=== PATIENT | female | born 1955 | race Caucasian/White ===

== ENCOUNTER 2019-08-22 10:06 | Outpatient (CLI) | payer BC, SELFPAY ==
[2019-08-22 10:28] LABS: Basophils Absolute Auto 0.1 K/mm3 (0.0-0.1); Basophils Percent Auto 0.6 % (0.2-1.2); Eosinophils Absolute Auto 0.3 K/mm3 (0-0.3); Eosinophils Percent Auto 3.6 % (0-4.4); Hematocrit 40.8 % (37.0-47.0); Hemoglobin 12.9 g/dL (12.0-15.0); Immature Granulocyte Percent A 1.1 % (0-0.5); Lymphocytes Absolute Auto 3.07 K/mm3 (0.9-3.2); Mean Corpuscular HGB Conc 31.6 g/dl (32-36); Mean Corpuscular Hemoglobin 27.9 pg (26-34); Mean Corpuscular Volume 88.3 fl (80-100); Mean Platelet Volume 11.7 fl (7.4-10.4); Monocytes Absolute Auto 0.8 K/mm3 (0.1-0.6); Monocytes Percent Auto 8.5 % (2.6-8.5); Neutrophils Absolute Auto 4.5 K/mm3 (1.3-6.7); Neutrophils Percent Auto 51.2 % (45.5-73.1); Platelet Count Result 246 k/mm3 (150-375); Red Blood Count 4.62 M/mm3 (4.2-5.4); Red Cell Distribution Width 13.5 % (11.5-14.5); White Blood Count 8.8 K/mm3 (4.5-10.0)
[2019-08-22 10:38] LABS: Hemoglobin A1C 8.5 % (<5.7)
[2019-08-22 10:46] LABS: Alanine Aminotransferase 84 U/L (4-35); Albumin Level 4.4 g/dL (3.5-5.1); Alkaline Phosphatase 60 U/L (38-126); Aspartate Amino Transferase 79 U/L (14-36); Bilirubin,Total 0.7 mg/dL (0.2-1.3); Blood Urea Nitrogen 14 mg/dL (7-17); Calcium 9.9 mg/dL (8.4-10.2); Carbon Dioxide 29 mmol/L (22-30); Chloride 96 mmol/L (98-107); Cholesterol 187 mg/dL (0-200); Estimated Glomerular Filt Rate > 60; Glucose 167 mg/dL (65-105); HDL Direct 52 mg/dL; Potassium 4.1 mmol/L (3.4-5.0); Sodium 138 mmol/L (137-145); Triglycerides 108 mg/dL (<150)
[2019-08-22 10:56] LABS: LDL Cholesterol Direct 116 mg/dL
== END 2019-08-22 10:07 | disposition home or self-care (01) ==
LOC: ANHLAB 10:09
PROVIDERS: PCP Family Medicine; Visit Provider Nurse Practitioner Family
DX: E11.65 Type 2 diabetes mellitus with hyperglycemia (principal); E78.2 Mixed hyperlipidemia; F41.9 Anxiety disorder, unspecified
CPT/HCPCS: 36415; 80053; 80061; 83036; 84443; 85025

== ENCOUNTER 2019-10-25 10:41 | Outpatient (CLI) | payer BC, SELFPAY ==
[2019-10-25 11:12] LABS: Basophils Percent Auto 0.4 % (0.2-1.2); Eosinophils Absolute Auto 0.2 K/mm3 (0-0.3); Eosinophils Percent Auto 1.7 % (0-4.4); Hematocrit 41.1 % (37.0-47.0); Hemoglobin 12.9 g/dL (12.0-15.0); Immature Granulocyte Absolute 0.09 K/mm3 (0.00-0.031); Lymphocytes Absolute Auto 2.61 K/mm3 (0.9-3.2); Lymphocytes Percent Auto 28.2 % (18.3-44.2); Mean Corpuscular HGB Conc 31.4 g/dl (32-36); Mean Corpuscular Hemoglobin 27.7 pg (26-34); Mean Corpuscular Volume 88.4 fl (80-100); Mean Platelet Volume 11.8 fl (7.4-10.4); Monocytes Absolute Auto 0.6 K/mm3 (0.1-0.6); Monocytes Percent Auto 6.8 % (2.6-8.5); Neutrophils Absolute Auto 5.7 K/mm3 (1.3-6.7); Neutrophils Percent Auto 61.9 % (45.5-73.1); Platelet Count Result 244 k/mm3 (150-375); Red Blood Count 4.65 M/mm3 (4.2-5.4); Red Cell Distribution Width 13.3 % (11.5-14.5); White Blood Count 9.3 K/mm3 (4.5-10.0)
[2019-10-25 11:22] LABS: Hemoglobin A1C 7.6 % (<5.7)
[2019-10-25 11:24] LABS: Alanine Aminotransferase 69 U/L (4-35); Albumin Level 4.4 g/dL (3.5-5.1); Alkaline Phosphatase 62 U/L (38-126); Aspartate Amino Transferase 56 U/L (14-36); Bilirubin,Total 0.7 mg/dL (0.2-1.3); Blood Urea Nitrogen 11 mg/dL (7-17); Calcium 9.7 mg/dL (8.4-10.2); Carbon Dioxide 28 mmol/L (22-30); Chloride 100 mmol/L (98-107); Cholesterol 174 mg/dL (0-200); Estimated Glomerular Filt Rate > 60; Glucose 169 mg/dL (65-105); HDL Direct 50 mg/dL; Potassium 3.9 mmol/L (3.4-5.0); Sodium 137 mmol/L (137-145); Triglycerides 82 mg/dL (<150)
[2019-10-25 11:35] LABS: LDL Cholesterol Direct 101 mg/dL
[2019-10-26 04:11] LABS: Creatinine Urine 61.2 mg/dL
[2019-10-26 04:23] LABS: MALB Creatinine Ratio < 9.8 mg/g (0-30); Microalbumin Urine Random < 6.0 mg/L (0-16.7)
== END 2019-10-25 10:42 | disposition home or self-care (01) ==
PROVIDERS: PCP Family Medicine; Visit Provider Family Medicine
DX: I10 Essential (primary) hypertension (principal); E11.65 Type 2 diabetes mellitus with hyperglycemia; E78.2 Mixed hyperlipidemia
CPT/HCPCS: 36415; 80053; 80061; 82043; 83036; 85025

== ENCOUNTER 2020-04-28 10:12 | Outpatient (CLI) | payer BC, SELFPAY ==
[2020-04-28 10:54] LABS: Basophils Percent Auto 0.4 % (0.2-1.2); Eosinophils Absolute Auto 0.3 K/mm3 (0-0.3); Eosinophils Percent Auto 2.6 % (0-4.4); Hematocrit 42.9 % (37.0-47.0); Hemoglobin 13.5 g/dL (12.0-15.0); Immature Granulocyte Absolute 0.07 K/mm3 (0.00-0.031); Immature Granulocyte Percent A 0.7 % (0-0.5); Lymphocytes Absolute Auto 2.79 K/mm3 (0.9-3.2); Mean Corpuscular HGB Conc 31.5 g/dl (32-36); Mean Corpuscular Hemoglobin 28.2 pg (26-34); Mean Corpuscular Volume 89.6 fl (80-100); Mean Platelet Volume 12.3 fl (7.4-10.4); Monocytes Absolute Auto 0.7 K/mm3 (0.1-0.6); Monocytes Percent Auto 7.4 % (2.6-8.5); Neutrophils Absolute Auto 5.8 K/mm3 (1.3-6.7); Neutrophils Percent Auto 59.9 % (45.5-73.1); Platelet Count Result 248 k/mm3 (150-375); Red Blood Count 4.79 M/mm3 (4.2-5.4); Red Cell Distribution Width 13.5 % (11.5-14.5); White Blood Count 9.6 K/mm3 (4.5-10.0)
[2020-04-28 11:03] LABS: Hemoglobin A1C 8.4 % (<5.7)
[2020-04-28 11:05] LABS: Alanine Aminotransferase 124 U/L (4-35); Albumin Level 4.4 g/dL (3.5-5.1); Alkaline Phosphatase 68 U/L (38-126); Anion Gap 7 mmol/L (8-16); Aspartate Amino Transferase 120 U/L (14-36); Bilirubin,Total 0.9 mg/dL (0.2-1.3); Blood Urea Nitrogen 13 mg/dL (7-17); Calcium 9.8 mg/dL (8.4-10.2); Carbon Dioxide 31 mmol/L (22-30); Chloride 99 mmol/L (98-107); Estimated Glomerular Filt Rate > 60; Glucose 183 mg/dL (65-105); Potassium 4.1 mmol/L (3.4-5.0); Sodium 137 mmol/L (137-145)
== END 2020-04-28 10:13 | disposition home or self-care (01) ==
LOC: ANHLAB 10:14
PROVIDERS: PCP Family Medicine; Visit Provider Physician Assistant
DX: E11.65 Type 2 diabetes mellitus with hyperglycemia (principal); I10 Essential (primary) hypertension
CPT/HCPCS: 36415; 80053; 83036; 85025

== ENCOUNTER → 2020-09-11 11:20 | Outpatient (CLI) | payer BC, SELFPAY ==
[2020-09-12 08:28] LABS: SARS-CoV-2 RNA PCR Positive
== END ==
PROVIDERS: PCP Family Medicine; Visit Provider Physician Assistant
DX: U07.1 COVID-19 (principal)
CPT/HCPCS: C9803; U0003; U0005

== ENCOUNTER 2021-05-12 15:22 | Outpatient (CLI) | payer BC, SELFPAY | END 2021-05-12 15:23 | disposition home or self-care (01) | LOC: ANHLAB 15:24 | PROVIDERS: PCP Family Medicine; Visit Provider Nurse Practitioner Adult Health | DX: R31.0 Gross hematuria (principal) | CPT/HCPCS: 87086; 87088 ==

== ENCOUNTER 2022-12-29 09:38 | Outpatient (CLI) | payer MEDICARE, SELFPAY ==
[2022-12-29 10:21] LABS: Appearance Urine Clear (Clear); Bacteria Urine None Seen /hpf; Bilirubin Urine Negative (Negative); Blood Urine Negative (Negative); Color Urine Yellow (Yellow); Glucose Urine UA Negative (Negative); Ketones Urine Negative (Negative); Leukocyte Esterase Ur Trace LEU/UL (NEGATIVE); Nitrate Urine Negative (Negative); Non Pathogenic Casts 0-2; Protein Urine Negative (Negative); Specific Grav Ur 1.019 (1.001-1.035); Squamous Epithelial Cell Urine None seen /hpf (Few); WBC Urine 0-5 /hpf (0-3); pH Urine 7.5 (5.0-9.0)
[2022-12-29 10:44] LABS: Add Urine Microscopic? YES
[2022-12-29 12:27] LABS: Microalbumin Urine Random 6.5 mg/L (0-16.7)
[2022-12-29 12:39] LABS: Creatinine Urine 65.7 mg/dL; MALB Creatinine Ratio 9.9 mg/g (0-30)
[2022-12-29 12:43] LABS: Alanine Aminotransferase 37 U/L (6-35); Albumin Level 4.2 g/dL (3.5-5.1); Alkaline Phosphatase 66 U/L (38-126); Anion Gap 6 mmol/L (8-16); Aspartate Amino Transferase 40 U/L (14-36); Blood Urea Nitrogen 16 mg/dL (7-17); Carbon Dioxide 30 mmol/L (22-30); Chloride 101 mmol/L (98-107); Cholesterol 207 mg/dL (0-200); Estimated Glomerular Filt Rate > 60; Glucose 242 mg/dL (65-110); HDL Direct 49 mg/dL; Potassium 3.8 mmol/L (3.4-5.0); Sodium 137 mmol/L (137-145); Triglycerides 155 mg/dL (<150)
[2022-12-29 12:54] LABS: LDL Cholesterol Direct 116 mg/dL
[2023-01-01 16:43] LABS: GGT 33 U/L (3-65)
== END 2022-12-29 09:39 | disposition home or self-care (01) ==
PROVIDERS: PCP Family Medicine; Visit Provider Family Medicine
DX: E78.2 Mixed hyperlipidemia (principal); R74.8 Abnormal levels of other serum enzymes; E11.65 Type 2 diabetes mellitus with hyperglycemia
CPT/HCPCS: 36415; 80053; 80061; 81001; 82043; 82977; 83036; 84443

== ENCOUNTER 2023-03-08 15:18 | Outpatient (CLI) | payer MEDICARE, SELFPAY ==
[2023-03-08 16:53] LABS: Creatinine Urine 73.5 mg/dL
[2023-03-08 16:55] LABS: MALB Creatinine Ratio 10.1 mg/g (0-30); Microalbumin Urine Random 7.4 mg/L (0-16.7)
== END 2023-03-08 15:19 | disposition home or self-care (01) ==
PROVIDERS: PCP Family Medicine
DX: E11.65 Type 2 diabetes mellitus with hyperglycemia (principal)
CPT/HCPCS: 82043

== ENCOUNTER 2023-08-13 22:21 | Observation (INO) | payer MEDICARE, SELFPAY ==
--- NOTE | ~2023-08-13 | CT_ITS ---
EXAMINATION: CTA brain carotid DATE: 08/13/2023 22:50 INDICATION: Right-sided numbness. TECHNIQUE: Computed tomographic angiography (CTA) of the head was performed with 100 mL Omnipaque-350 intravenous contrast. CTA of the neck was performed with intravenous contrast. Automated exposure co ntrol and iterative reconstruction technique were employed. The dose-length product was 1159.50 mGy-c m. Maximum intensity projection and volume rendered 3D-reconstructions were created by the technsofia navarro on a separate workstation. COMPARISON: Head CT 08/13/2023 FINDINGS: HEAD CTA: There are scattered areas of low attenuation in the cerebral white matter, which is within normal limits for the patient's age. There is no intracranial hemorrhage, acute infarction, or abnorm al intracranial mass lesion. The ventricles are normal in size. The orbits are normal. There is mucos al thickening in left maxillary sinus. There is a small left mastoid effusion. The vertebral arteries are codominant. There is no significant stenosis of basilar artery or the posterior cerebral arterie s. Left P1 posterior cerebral artery segment is absent, a normal variant. There is an infundibulum at the origin of right posterior communicating artery. Left posterior communicating artery is normal. T here is no significant stenosis of the intracranial internal carotid arteries or anterior cerebral ar teries. There is no significant stenosis of right middle cerebral artery. Left middle cerebral artery is small. Anterior communicating artery is normal. There is no aneurysm. NECK CTA: There are nodules in the lung apices measuring up to 8 mm on the left. There are no patholo gically enlarged lymph nodes. There is an associated stenosis of the vertebral arteries. There is mingo que in the proximal internal carotid arteries. There is 0% stenosis of the proximal right internal ca rotid artery relative to normal distal artery lumen diameter (NASCET criteria). There is 0% stenosis of the proximal left internal carotid artery relative to normal distal artery lumen diameter. There i s mild cervical spondylosis. IMPRESSION: 1. Normal aging brain. 2. Small left middle cerebral artery. 3. 0% stenosis of the proximal internal carotid arteries relative to normal distal artery lumen diame ters (NASCET criteria). 4. Pulmonary nodules measuring up to 8 mm, which may be granulomatous disease, but malignancy cannot be excluded. Reviewed, dictated and finalized at location E. HEALTH SPEECH THERAPIST IMPRESSION: 1. Normal aging brain. 2. Small left middle cerebral artery. 3. 0% stenosis of the proximal internal carotid arteries relative to normal dis alex artery lumen diameters (NASCET criteria). 4. Pulmonary nodules measuring up to 8 mm, which may be granulomatous disease, but malignancy cannot be excluded.
--- NOTE | ~2023-08-13 | CT_ITS ---
EXAMINATION:CT diagnostic chest wo con DATE: 08/14/2023 06:19 INDICATION: Pulmonary nodules. Abnormal chest radiograph. TECHNIQUE: Computed tomography (CT) of the chest was performed without intravenous contrast. Automate d exposure control and iterative reconstruction technique were employed. The dose-length product (DLP ) was 487.06 mGy-cm. COMPARISON: CT abdomen and pelvis 09/05/2016 FINDINGS: There are greater than 40 nodules in the lungs measuring up to 20 mm in right lower lobe. T he 20 mm nodule in right lower lobe measure 12 mm on 09/05/2016. Many nodules in the inferior lungs ar e stable from 09/05/2016. No pleural effusion. The heart size is normal. There are coronary artery lala cifications. No pericardial effusion. There are gallstones in the gallbladder, which is normal in siz e. There are cysts in left kidney measuring up to 15 mm. There is mild thoracic spondylosis and sever e lumbar spondylosis. IMPRESSION: 1. Pulmonary nodules measuring up to 20 mm, at least the largest of which has increased in size from 09/05/2016. These findings may be granulomatous disease, but malignancy cannot be excluded. Consider C T-guided biopsy of the 20 mm right lower lobe nodule. Reviewed, dictated and finalized at location E. TRAPPER IMPRESSION: 1. Pulmonary nodules measuring up to 20 mm, at least the largest of which has i ncreased in size from 09/05/2016. These findings may be granulomatous disease, b ut malignancy cannot be excluded. Consider CT-guided biopsy of the 20 mm right lower lobe nodule.
--- NOTE | ~2023-08-13 | MR_ITS ---
MRI of the brain Clinical History: TIA Technique: Axial and sagittal T1-weighted images were acquired. These were followed by axial T2-weigh smitha, diffusion weighted, gradient, and FLAIR images. Following intravenous administration of 20 cc Mu ltiHance gadolinium, T1-weighted fat-sat imaging was performed in the axial and coronal and sagittal planes. Findings: There is no acute infarct, intracranial hemorrhage, or mass lesion. There are mild to moder ate chronic white matter changes in the periventricular white matter bilaterally. Ventricles and subarachnoid spaces are mildly dilated. Orbits are unremarkable. There is mild left ma stoid effusion. There is mild left maxillary sinus disease. Remaining paranasal sinuses and right mas toid air cells are clear. Major intracranial flow voids appear intact. Sagittal midline structures are intact. No abnormal postcontrast enhancement identified. IMPRESSION: No acute intracranial hemorrhage, mass lesion, or acute infarct. Mild to moderate chronic microvascular ischemic changes. Mild sinus disease, as above. Reviewed, dictated and finalized at [facility]. STILE ATTENDANT
--- NOTE | ~2023-08-13 | XR_ITS ---
EXAMINATION: XR chest 1V portable DATE: 08/13/2023 22:57 INDICATION: Weakness. TECHNIQUE: A single frontal view of the chest was obtained. COMPARISON: CT abdomen and pelvis 09/05/2016 FINDINGS: There are scattered nodules in the lungs measuring up to 2 cm. No pleural effusion or pneum othorax. The heart size is normal. IMPRESSION: 1. Scattered pulmonary nodules suspicious for metastatic disease. Noncontrast chest CT is recommended . I called this result to Dr. Krause. Reviewed, dictated and finalized at location E. CARGO GROUND OPERATIONS SUPERVISOR IMPRESSION: 1. Scattered pulmonary nodules suspicious for metastatic disease. Noncontrast c hest CT is recommended. I called this result to Dr. Krause.
--- NOTE | ~2023-08-13 | MR_ITS ---
EXAMINATION: MRA brain wo con DATE: 08/17/2023 18:56 INDICATION: Transient ischemic attack. TECHNIQUE: Magnetic resonance angiography (MRA) of the brain was performed without intravenous contra st with T1-weighted SPGR by the 3D [id number] technique. Maximum intensity projection 3D-reconstr uctions were obtained. COMPARISON: Brain MRI 08/16/2023, CTA 08/13/23 FINDINGS: The vertebral arteries are codominant. There is no significant stenosis of basilar artery or the post erior cerebral arteries. Left posterior communicating artery is normal. A right posterior communicati ng artery is not identified. There is no significant stenosis of the intracranial internal carotid ar teries or anterior cerebral arteries. The left middle cerebral artery is small. Anterior communicatin g artery is normal. There is no aneurysm. IMPRESSION: 1. Small left middle cerebral artery. Reviewed, dictated and finalized at location E. ENT ATTENDANT
--- NOTE | ~2023-08-13 | CT_ITS ---
EXAMINATION: CT brain wo con DATE: 08/13/2023 22:50 INDICATION: Right-sided numbness. TECHNIQUE: Computed tomography (CT) of the head was performed without intravenous contrast. The mA wa s adjusted according to patient size. Iterative reconstruction technique was employed. The dose-lengt h product was 681.00 mGy-cm. COMPARISON: None FINDINGS: There are scattered areas of low attenuation in the cerebral white matter, which is within normal limits for the patient's age. There is no intracranial hemorrhage, acute infarction, or abnorm al intracranial mass lesion. The ventricles are normal in size. The orbits are normal. There is mucos al thickening in left maxillary sinus. The mastoid air cells are normal. IMPRESSION: 1. Normal aging brain. Reviewed, dictated and finalized at location E. ENT STEAMER IMPRESSION: 1. Normal aging brain.
--- NOTE | 2023-08-13 22:30 | ECG_ITS ---
Measurements Intervals [place] Rate: 99 P: 61 CO: 208 QRS: -71 QRSD: 74 T: 64 QT: 344 QTc: 442 Interpretive Statements POOR QUALITY ECG BECAUSE OF BASELINE ARTIFACT SINUS RHYTHM POSSIBLE LEFT ATRIAL ENLARGEMENT [-0.1mV P-WAVE IN V1/V2] LOW QRS VOLTAGE IN PRECORDIAL LEADS [QRS DEFLECTION < 1.0 mV IN CHEST LEADS] LEFT ANTERIOR FASCICULAR BLOCK [QRS AXIS <= -45, QR IN I, RS IN II] CONSIDER PREVIOUS ANTERIOR INFARCTION ABNORMAL ECG NO PREVIOUS ECG AVAILABLE FOR COMPARISON Electronically Signed On 08-14-2023 7:43:21 SELF SEALING FUEL TANK REPAIRER by Rob Alba M.D.
[2023-08-13 22:31] LABS: Glucose Point of Care 219 mg/dl (65-105)
[2023-08-13 22:59] VITALS: BP 156/84; PULSE 91; RESP 18; O2SAT 100
[2023-08-13 23:04] VITALS: O2SAT 98
[2023-08-13 23:06] VITALS: PULSE 90
[2023-08-13] MEDS: SODIUM CHLORIDE 0.9% IV 1,000 ML 999 ML IV CONT (23:06)
--- NOTE | 2023-08-13 23:30 | PC.NURSE ---
Report to KELI Díaz
[2023-08-13 23:31] LABS: Basophils Percent Auto 0.4 % (0.2-1.2); Eosinophils Absolute Auto 0.3 K/mm3 (0-0.3); Eosinophils Percent Auto 3.3 % (0-4.4); Hematocrit 38.4 % (37.0-47.0); Immature Granulocyte Absolute 0.07 K/mm3 (0.00-0.031); Immature Granulocyte Percent A 0.8 % (0-0.5); Lymphocytes Absolute Auto 2.35 K/mm3 (0.9-3.2); Lymphocytes Percent Auto 26.3 % (18.3-44.2); Mean Corpuscular HGB Conc 31.3 g/dl (32-36); Mean Corpuscular Hemoglobin 27.8 pg (26-34); Mean Corpuscular Volume 89.1 fl (80-100); Mean Platelet Volume 12.2 fl (7.4-10.4); Monocytes Absolute Auto 0.8 K/mm3 (0.1-0.6); Monocytes Percent Auto 8.6 % (2.6-8.5); Neutrophils Absolute Auto 5.4 K/mm3 (1.3-6.7); Neutrophils Percent Auto 60.6 % (45.5-73.1); Platelet Count Result 200 k/mm3 (150-375); Red Blood Count 4.31 M/mm3 (4.2-5.4); Red Cell Distribution Width 13.7 % (11.5-14.5); White Blood Count 8.9 K/mm3 (4.5-10.0)
[2023-08-13 23:34] VITALS: BP 151/81; PULSE 99; RESP 20; O2SAT 96
[2023-08-13 23:45] LABS: Prothrombin Time 13.1 Seconds (11.1-14.7)
[2023-08-13 23:46] LABS: Alanine Aminotransferase 27 U/L (6-35); Alkaline Phosphatase 59 U/L (38-126); Anion Gap 7 mmol/L (8-16); Aspartate Amino Transferase 27 U/L (14-36); Bilirubin,Total 0.5 mg/dL (0.2-1.3); Blood Urea Nitrogen 15 mg/dL (7-17); Calcium 9.4 mg/dL (8.4-10.2); Carbon Dioxide 26 mmol/L (22-30); Chloride 103 mmol/L (98-107); Estimated CRCL calculation 95 ml/min; Estimated Glomerular Filt Rate > 60; Glucose 234 mg/dL (65-110); Magnesium 1.7 mg/dL (1.6-2.3); Partial Thromboplastin Time 33.2 SECONDS (22.3-36.8); Potassium 3.5 mmol/L (3.4-5.0); Sodium 136 mmol/L (137-145)
[2023-08-13 23:57] LABS: Troponin I 0.012 ng/mL (0.000-0.034)
[2023-08-14] VITALS (11 sets, daily range): BP systolic 136–162; BP diastolic 69–96; PULSE 70–96; RESP 15–20; TEMP 36.7; O2SAT 95–99
[2023-08-14] MEDS: ASPIRIN 81 MG CHEWABLE TABLET 324 MG PO (00:53)
[2023-08-14] MEDS: CLOPIDOGREL BISULFATE 300 MG TABLET PO (01:04)
--- NOTE | 2023-08-14 02:29 | ED.GENADULT ---
HPI - General Adult General Chief complaint: Neuro Symptoms/Deficit Stated complaint: right hand numbness at 2030-symptoms resolved Time Seen by Provider: 08/13/23 22:32 History of Present Illness HPI narrative: Patient 67-year-old female who presents emergency department with chief complaint of stroke-like symptoms. Patient reports that at approximately 8:30 p.m. she noticed that her right hand started going numb and her arm started tingling at the same time she noticed that she had difficulty writing with a pen and lost control of a pin in her right hand the patient also noticed that she felt as though she had a little bit of droopiness of the right side of her face when this event occurred. The patient states the symptoms lasted for several minutes and completely resolved by the time she arrived to the emergency department patient reports no prior history of CVA Related Data Home Medications Medication Instructions Recorded Confirmed insulin aspart 8 unit subcut TID 02/21/23 02/21/23 (niacinamide)(U-100) 100 unit/mL(3 mL) subcutaneous pen (Fiasp FlexTouch U-100 Insulin) insulin degludec 100 unit/mL 20 unit subcut DAILY 02/21/23 02/21/23 subcutaneous solution (Tresiba U-100 Insulin) pravastatin 20 mg tablet 20 mg PO QHS 02/21/23 02/21/23 sitagliptin phos 50 mg-metformin 1 tablet PO DAILY 02/21/23 02/21/23 ER 1,000 mg tablet,extend rel 24h mp (Janumet XR) Allergies Allergy/AdvReac Type Severity Reaction Status Date / Time ciprofloxacin Allergy Intermediate Hives / Verified 08/13/23 22:23 Red Face codeine Allergy Unknown Hives Verified 08/13/23 22:23 Review of Systems Review of Systems: A 10 system review of systems was completed on the patient and is negative except for what is stated in the HPI. Nursing and ancillary documentation was reviewed. [facility] Past Medical History Medical History Acute non-recurrent maxillary sinusitis Acute otitis media, right Anxiety BMI 39.0-39.9,adult BMI 40.0-44.9, adult BMI 40.0-44.9, adult Bronchitis Colon cancer screening Cough due to EDDIE inhibitor COVID-19 (09/09/20) Diabetes Elevated liver enzymes AST 120 and ALT 124 on 04/28/2020. AST 40, ALT 37, GGT 33 on 12/29/2022. Gastro-esophageal reflux disease without esophagitis GERD (gastroesophageal reflux disease) Hypersomnia Influenza-like illness (06/25/22) Morbid obesity with BMI of 40.0-44.9, adult Nephrolithiasis Obesity due to excess calories Other specified phobia Screening for diabetic retinopathy no diabetic retinopathy on 03/16/2023. Thrombophlebitis leg Transaminitis Venous insufficiency Family History Family History Father Cancer Mother Hypertension Social History Social History Social History: Smoking status: Former smoker Tobacco type: cigarettes Second hand tobacco smoke exposure: No Smoking end date: 07/10/92 Alcohol intake: never Substance use: never Substance use type: does not use Current Housing: Decline to Answer Concerned About Future Housing: Decline to Answer Difficulty Paying Gas/Electric Bills: Decline to Answer Difficulty Paying for Meds: Decline to Answer Currently Unemployed: Decline to Answer Education: Decline to Answer Difficulty w/ Childcare or Family Care: Decline to Answer Living arrangements: with family Occupation/Education: occupation Gender identity (if verbalized by the patient): Female Sexual Orientation (if Verbalized by the Patient): Straight or Heterosexual Exam Narrative: GENERAL: Well-appearing, well-nourished, and in no acute distress. HEAD: Normocephalic, atraumatic. EYES: PERRLA and EOMI. ENT: Nares clear, no rhinorrhea or epistaxis. Mucous membranes moist. NECK: Supple. CHEST: Clear to auscultati
--- NOTE | 2023-08-14 08:58 | PC.NURSE ---
Pt requested to take morning home medications. MD made aware and gave verbal order of approval.
[2023-08-14] MEDS: CLOPIDOGREL BISULFATE 75 MG TABLET PO (09:22)
[2023-08-14] MEDS: ASPIRIN 325 MG TABLET PO (09:22)
[2023-08-14] MEDS: PRAVASTATIN SODIUM 20 MG TABLET PO (09:22)
--- NOTE | 2023-08-14 12:24 | PC.NURSE ---
Meal tray ordered.
--- NOTE | 2023-08-14 15:49 | PC.NURSE ---
This RN spoke w/ [facility], no update on bed placement for pt.
--- NOTE | 2023-08-14 19:15 | PC.NURSE ---
Nurse report given to Aliya DICKEY.
[2023-08-15] VITALS (16 sets, daily range): BP systolic 113–181; BP diastolic 64–92; PULSE 67–82; RESP 14–26; TEMP 36.1–36.4; O2SAT 96–100; BMI 42.3
[2023-08-15] MEDS: ASPIRIN 325 MG TABLET PO (08:21)
--- NOTE | 2023-08-15 08:21 | PC.NURSE ---
BS 227
[2023-08-15 08:23] LABS: Glucose Point of Care 227 mg/dl (65-105)
--- NOTE | 2023-08-15 08:57 | PC.NURSE ---
Pt to [facility] via w/c w/ [employer] and spouse for a shower.
[2023-08-15] MEDS: CLOPIDOGREL BISULFATE 75 MG TABLET PO (09:47)
[2023-08-15] MEDS: PRAVASTATIN SODIUM 20 MG TABLET PO (10:21)
--- NOTE | 2023-08-15 12:54 | PC.NURSE ---
Called [facility] transfer center at [phone] for a status update. Was told that there is still no bed for patient at [facility]
--- NOTE | 2023-08-15 20:10 | ADMGEN ---
This patient, Kassie Dotson, was admitted to Medical Room 349-01. Patient/family oriented to hospital policies and general routines including ID bracelet, bed and alarms, visiting hours, pain management, procedures, bathroom and other care routines, personal items, smoking policy, room service/diet, and visiting hours. Information on how to activate the Rapid Response Team has been discussed. Patient/Family are encouraged to report perceived risks to care and to ask questions if they do not understand what they are told or what they should do.
--- NOTE | 2023-08-15 20:40 | PM.IMHP ---
H&P: HPI History of Present Illness Date/Time: 08/15/23 20:40 Chief Complaint: UPPER EXTREMITY WEAKNESS Narrative: THIS IS A 67-YEAR-OLD FEMALE WITH PAST MEDICAL HISTORY SIGNIFICANT FOR INSULIN-DEPENDENT DIABETES MELLITUS, HYPERTENSION, GERD, DYSLIPIDEMIA. PATIENT PRESENTED TO THE EMERGENCY ROOM AFTER HAVING EPISODE OF BILATERAL LOWER EXTREMITY HAND WEAKNESS WITH KNOWN IN AND TINGLING THAT LASTED ON AND OFF DURING THE DAY IN EMERGENCY ROOM PATIENT PRELIMINARY WORKUP WAS UNREVEALING SHE WAS PLACED ON OBSERVATION AWAITING BED AT OUTSIDE FACILITY HOWEVER NOW ADMITTED TO OUR SERVICE AFTER THE AVAILABILITY OF NEUROLOGY. AT THE TIME OF MY VISIT PATIENT DENIED ANY VISION CHANGES, HAS A FRONTAL HEADACHE, NO NAUSEA NO VOMITING NO FOCAL SENSORIMOTOR DEFICIT NO SPEECH DISTURBANCE, NO GAIT INSTABILITY. EXAMINATION: CT brain wo con DATE: 08/13/2023 22:50 INDICATION: Right-sided numbness. TECHNIQUE: Computed tomography (CT) of the head was performed without intravenous contrast. The mA was adjusted according to patient size. Iterative reconstruction technique was employed. The dose-length product was 681.00 mGy-cm. COMPARISON: None FINDINGS: There are scattered areas of low attenuation in the cerebral white matter, which is within normal limits for the patient's age. There is no intracranial hemorrhage, acute infarction, or abnormal intracranial mass lesion. The ventricles are normal in size. The orbits are normal. There is mucosal thickening in left maxillary sinus. The mastoid air cells are normal. IMPRESSION: 1. Normal aging brain. EXAMINATION:CT diagnostic chest wo con DATE: 08/14/2023 06:19 INDICATION: Pulmonary nodules. Abnormal chest radiograph. TECHNIQUE: Computed tomography (CT) of the chest was performed without intravenous contrast. Automated exposure control and iterative reconstruction technique were employed. The dose-length product (DLP) was 487.06 mGy-cm. COMPARISON: CT abdomen and pelvis 09/05/2016 FINDINGS: There are greater than 40 nodules in the lungs measuring up to 20 mm in right lower lobe. The 20 mm nodule in right lower lobe measure 12 mm on 09/05/2016. Many nodules in the inferior lungs are stable from 09/05/2016. No pleural effusion. The heart size is normal. There are coronary artery calcifications. No pericardial effusion. There are gallstones in the gallbladder, which is normal in size. There are cysts in left kidney measuring up to 15 mm. There is mild thoracic spondylosis and severe lumbar spondylosis. IMPRESSION: 1. Pulmonary nodules measuring up to 20 mm, at least the largest of which has increased in size from 09/05/2016. These findings may be granulomatous disease, but malignancy cannot be excluded. Consider CT-guided biopsy of the 20 mm right lower lobe nodule. EXAMINATION: CTA brain carotid DATE: 08/13/2023 22:50 INDICATION: Right-sided numbness. TECHNIQUE: Computed tomographic angiography (CTA) of the head was performed with 100 mL Omnipaque-350 intravenous contrast. CTA of the neck was performed with intravenous contrast. Automated exposure control and iterative reconstruction technique were employed. The dose-length product was 1159.50 mGy-cm. Maximum intensity projection and volume rendered 3D-reconstructions were created by the technologist on a separate workstation. COMPARISON: Head CT 08/13/2023 FINDINGS: HEAD CTA: There are scattered areas of low attenuation in the cerebral white matter, which is within normal limits for the patient's age. There is no intracranial hemorrhage, acute infarction, or abnormal intracranial mass lesion. The ventricles are normal in size. The orbits are normal. There is mucosal thickening in left maxillary sinus. There is a small left mastoid effusion. The vertebral arteries are codominant. There is no significant stenosis of basilar artery or the posterior cerebral arteries. Left P1 posterior cerebral artery segment is absent, a normal variant. There is an infundibulum at the
[2023-08-15] MEDS: ALPRAZolam (*CRX) 0.5 MG TABLET PO (22:49)
[2023-08-16] VITALS: PULSE 66
[2023-08-16 04:00] VITALS: PULSE 50
[2023-08-16 06:00] VITALS: BP 145/70; PULSE 64; RESP 20; TEMP 36.6; O2SAT 99
[2023-08-16] MEDS: LORazepam INJ (*CRX) 2 MG/ML VIAL 1 MG IV PUSH (07:04)
[2023-08-16 08:40] LABS: Glucose Point of Care 172 mg/dl (65-105)
[2023-08-16] MEDS: CLOPIDOGREL BISULFATE 75 MG TABLET PO (09:51)
[2023-08-16] MEDS: PANTOPRAZOLE 40 MG TABLET PO (09:51)
[2023-08-16] MEDS: hydroCHLOROthiazide 25 MG TABLET PO (09:51)
[2023-08-16] MEDS: PRAVASTATIN SODIUM 20 MG TABLET PO (09:51)
[2023-08-16] MEDS: LOSARTAN POTASSIUM 50 MG TABLET PO (09:51)
[2023-08-16] MEDS: ASPIRIN 325 MG TABLET PO (09:51)
[2023-08-16] MEDS: INSULIN GLARGINE (*BKC) 100 UNITS/ML 18 UNITS SUB-Q (09:53)
[2023-08-16 11:37] LABS: Glucose Point of Care 305 mg/dl (65-105)
[2023-08-16] MEDS: INSULIN ASPART (*BKC) 100 UNITS/ML 8 UNITS SUB-Q ×2 (12:06→17:31)
[2023-08-16 13:15] LABS: Cholesterol 190 mg/dL (0-200); HDL Direct 52 mg/dL; Triglycerides 150 mg/dL (<150)
[2023-08-16 13:27] LABS: LDL Cholesterol Direct 103 mg/dL
[2023-08-16 14:45] LABS: Hemoglobin A1C 8.9 % (<5.7)
[2023-08-16 15:47] VITALS: BP 139/79; PULSE 72; RESP 16; TEMP 36.4; O2SAT 99
--- NOTE | 2023-08-16 16:00 | WPDNEURCNPN ---
Assessment and Plan Assessment and plan (1) Brain TIA: Code(s): G45.9 - Transient cerebral ischemic attack, unspecified Status: Acute Plan 1. TIA 2. Early diabetic neuropathy will benefit from the EMG nerve conduction study as an outpatient at a later date 3. CTA is normal surface echocardiogram would be necessary to rule out the possibly of any cardiac involvement 4. Continue aspirin 81mg daily and Plavix 75mg daily for the next 3 weeks only and follow-up with Dr. Leblanc Consult date: 08/16/23 HPI: Kassie Dotson is a 67 year old femaleAdmitted to the hospital through the emergency room where she presented with chief complaint of stroke-like symptoms around 8:30 p.m. she noted her right hand becoming numb at the same time her right upper extremity was tingling as well she had difficulties in writing and lost control of the pen in her right hand he also noted droopiness of the right side of the face the whole symptomatology lasted for several minutes and completely resolved. Patient is a known diabetic has been taking insulin 8units 3 times a day and 20units subQ daily in addition to pravastatin 20mg at night and sitagliptin 50mg tablet daily she is allergic to Cipro and codeine she is a former smoker by history and has not smoked since July 10, 1992 she is not alcohol intake initial exam in the emergency room was nonfocal including vital signs which were normal head and neck CTA documented small left middle cerebral artery but clear stenosis of the proximal internal carotid arteries incidental finding of pulmonary nodule measuring up to 8mm was documented , brain MRI has been done today which is negative for any territorial stroke but there is micro vascular changes as described. 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 AST 40, ALT 37, GGT 33 on 12/29/2022. Gastro-esophageal reflux disease without esophagitis GERD (gastroesophageal reflux disease) Hypersomnia Influenza-like illness (06/25/22) Morbid obesity with BMI of 40.0-44.9, adult Nephrolithiasis Obesity due to excess calories Other specified phobia Screening for diabetic retinopathy no diabetic retinopathy on 03/16/2023. Thrombophlebitis leg Transaminitis Venous insufficiency Family History Family History Father Cancer Mother Hypertension Social History Social History Social History: Smoking status: Former smoker Tobacco type: cigarettes Second hand tobacco smoke exposure: No Smoking end date: 07/10/92 Alcohol intake: never Substance use: never Substance use type: does not use Do You Feel Safe in your Home?: Yes Lack of Transportation: No Lack of Food: Never True Current Housing: I Have Housing Concerned About Future Housing: No Difficulty Paying Gas/Electric Bills: No Difficulty Paying for Meds: No Currently Unemployed: No Education: High School Diploma/GED Difficulty w/ Childcare or Family Care: No Living arrangements: with family Occupation/Education: occupation Gender identity (if verbalized by the patient): Female Sexual Orientation (if Verbalized by the Patient): Straight or Heterosexual Spiritual care concerns: No Meds Home Medications and Allergies Home Medications Medication Instructions Recorded Confirmed Type alprazolam 0.5 mg tablet 0.5 mg PO TID PRN Anxiety 08/14/23 08/15/23 History hydrochlorothiazide 25 mg tablet 25 mg PO D
--- NOTE | 2023-08-16 16:49 | PM.IMPN ---
Progress Note: A&P Assessment and Plan (1) Brain TIA: Code(s): G45.9 - Transient cerebral ischemic attack, unspecified Status: Acute Assessment and Plan: Place in observation MRI of the brain in the morning Neurology consulted: ? 1.? TIA 2.? Early diabetic neuropathy will benefit from the EMG nerve conduction study as an outpatient at a later date 3.? CTA is normal surface echocardiogram would be necessary to rule out the possibly of any cardiac involvement 4.? Continue aspirin 81mg daily and Plavix 75mg daily for the next 3 weeks only and follow-up with Dr. Leblanc HbA1c: 8.9%; Lipid panel: Unremarkable (2) Morbid obesity with BMI of 40.0-44.9, adult: Code(s): E66.01 - Morbid (severe) obesity due to excess calories; Z68.41 - Body mass index [BMI] 40.0-44.9, adult Status: Acute Assessment and Plan: Lifestyle and diet modifications (3) Gastro-esophageal reflux disease without esophagitis: Code(s): K21.9 - Gastro-esophageal reflux disease without esophagitis Status: Acute Assessment and Plan: PPI (4) MOLLY (generalized anxiety disorder): Code(s): F41.1 - Generalized anxiety disorder Status: Acute Assessment and Plan: On Xanax (5) Diabetic polyneuropathy: Qualifiers: Diabetes mellitus type: type 2 Qualified Code(s): E11.42 - Type 2 diabetes mellitus with diabetic polyneuropathy Code(s): E11.42 - Type 2 diabetes mellitus with diabetic polyneuropathy Status: Acute Assessment and Plan: Unchanged (6) Type 2 diabetes mellitus with hyperglycemia, without long-term current use of insulin: Code(s): E11.65 - Type 2 diabetes mellitus with hyperglycemia Status: Acute Assessment and Plan: Continue insulin Holding Janumet HbA1c 8.9% Lipid panel: Unremarkable (7) Essential (primary) hypertension: Code(s): I10 - Essential (primary) hypertension Status: Acute Assessment and Plan: Continue hydrochlorothiazide Time Spent With Patient Time with patient: 25 - 35 minutes Subjective Date/time seen: 08/16/23 16:49 Interval history: Seen and examined; no fresh concerns Feels better. not in painful/respiratory distress Review of Systems Review of Systems: BILATERAL UPPER EXTREMITY HAND NUMBNESS TINGLING Constitutional: Constitutional: Denies chills, Denies fatigue, Denies fever(s) and Denies malaise Eyes: Eyes: Denies change in vision ENT: Denies dysphagia, Denies vertigo, Denies dizziness and Denies odynophagia Cardiovascular: Cardiovascular: Denies chest pain, Denies radiating jaw, neck or arm pain, Denies palpitations and Denies dyspnea Respiratory: Respiratory: Denies cough and Denies dyspnea Gastrointestinal: Gastrointestinal: Denies abdominal pain, Denies dysphagia, Denies dyspepsia, Denies heartburn, Denies diarrhea, Denies nausea, Denies odynophagia and Denies vomiting Genitourinary: Genitourinary: Denies dysuria and Denies flank pain Musculoskeletal: Musculoskeletal: Denies myalgias, Reports numbness (BILATERAL UPPER EXTREMITY HAND) and Reports tingling Integumentary/Breasts: Skin/Breast: Denies rash Neurologic: Denies vertigo, Denies dizziness, Denies focal weakness, Reports numbness (BILATERAL UPPER EXTREMITY HAND), Denies Sensory deficit (Neuro), Reports tingling and Reports paresthesias Psychiatric: Psychiatric: Reports no additional psychiatric complaints and Reports as per HPI Endocrine: Endocrine: Denies cold intolerance, Denies fatigue, Denies flushing, Denies heat intolerance, Denies polyphagia, Denies polydipsia and Denies palpitations Hematologic/Lymphatic: Hematologic/Lymphatic: Reports no additional hematologic/lymphatic complaints and Reports as per HPI Allergic/Immunologic: Allergic/Immunologic: Reports no additional allergic/immunologic complaints and Reports as per HPI Exam Narrative: PATIENT IS SITTING Const: General: comfortable, no acute dis
[2023-08-16 17:26] LABS: Glucose Point of Care 244 mg/dl (65-105)
[2023-08-16] MEDS: ALPRAZolam (*CRX) 0.5 MG TABLET PO (20:45)
[2023-08-16 22:00] VITALS: BP 132/75; PULSE 67; RESP 20; TEMP 36.4; O2SAT 99
--- NOTE | 2023-08-17 | ECHO_ITS ---
Patient Info Name: Kassie Dotson Age: 67 years : 1955 Gender: Female Ht: 63 in Wt: 238 lbs BSA: 2.25 m2 HR: 82 bpm BP: 132 / 75 mmHg Technical Quality: Fair Exam Date: 08/17/2023 1:39 PM Exam Location: Echo Lab Exam Room: [facility] Patient Status: Inpatient Admit Date: 08/15/2023 Staff Ordering Physician: Mark Mcdonnell MD Yeast Tender: Neelima Babrer RDCS Attending Provider: Vinay Meeks MD Exam Type: CA echo dop bubble study w con Study Info Indications - weakness tia strokesymptoms Complete two-dimentional, color flow and Doppler transthoracic echocardiogram is performed with agitated saline and with contrast to opacify the left ventricle and to improve the delineation of the left ventricle endocardial borders. Contrast/Agitated Saline Contrast/Ag. Saline: Definity Amount: 2.00 ml Administered By: Neelima Barber [facility] Existing IV Access: Yes IV Access Condition: patent with no signs of infiltration Summary 1. Definity contrast administered improved wall motion interpretation. 2. Left ventricular chamber dimension is normal. 3. Left ventricular systolic function is hyperdynamic, estimated at >70%. 4. There is mild concentric increased left ventricular wall thickness. 5. The left ventricular diastolic function is grade I diastolic dysfunction. 6. E/e' 20 is elevated. 7. The mitral valve has moderately calcified annulus. 8. No pulmonary hypertension, estimated pulmonary arterial systolic pressure is 33 mmHg. Left Ventricle Definity contrast administered improved wall motion interpretation. E/e' 20 is elevated. Left ventricular chamber dimension is normal. Left ventricular systolic function is hyperdynamic, estimated at >70%. There is mild concentric increased left ventricular wall thickness. The left ventricular diastolic function is grade I diastolic dysfunction. Right Ventricle Right ventricular chamber dimension is normal. Right ventricular systolic function is normal. Left Atria Left atrial chamber dimension is normal. Right Atria Right atrial chamber dimension is normal. Atrial Septum Agitated saline injection with and without valsalva maneuver opacified right side cardiac chambers without shunt to left side cardiac chambers. Intact interatrial septum visualized by 2D and agitated saline imaging. Aortic Valve The aortic valve is trileaflet. There is no aortic valve stenosis. There is no aortic valve regurgitation. Pulmonic Valve There is no pulmonic regurgitation. Mitral Valve The mitral valve has moderately calcified annulus. There is no mitral valve stenosis. There is no mitral valve regurgitation. Tricuspid Valve There is no tricuspid valve regurgitation. No pulmonary hypertension, estimated pulmonary arterial systolic pressure is 33 mmHg. Pericardium/Pleural There is no pericardial effusion. Inferior Vena Cava Normal inferior vena cava with >50% collapse upon inspiration consistent with normal right atrial pressure, 5 mmHg. Aorta The aortic root size at the sinus of Valsalva is normal. Left Ventricular Outflow Tract Name Value Normal LVOT 2D LVOT Diameter 2.0 cm LVOT Doppler LVOT Peak Gradient
[2023-08-17 06:00] VITALS: BP 142/76; PULSE 60; RESP 21; TEMP 36.4; O2SAT 100
[2023-08-17 06:21] LABS: Basophils Absolute Auto 0.1 K/mm3 (0.0-0.1); Basophils Percent Auto 0.5 % (0.2-1.2); Eosinophils Absolute Auto 0.4 K/mm3 (0-0.3); Eosinophils Percent Auto 3.7 % (0-4.4); Hematocrit 42.2 % (37.0-47.0); Hemoglobin 12.7 g/dL (12.0-15.0); Lymphocytes Absolute Auto 2.97 K/mm3 (0.9-3.2); Lymphocytes Percent Auto 29.6 % (18.3-44.2); Mean Corpuscular HGB Conc 30.1 g/dl (32-36); Mean Corpuscular Hemoglobin 27.5 pg (26-34); Mean Corpuscular Volume 91.3 fl (80-100); Mean Platelet Volume 12.2 fl (7.4-10.4); Monocytes Absolute Auto 0.9 K/mm3 (0.1-0.6); Monocytes Percent Auto 8.9 % (2.6-8.5); Neutrophils Absolute Auto 5.7 K/mm3 (1.3-6.7); Neutrophils Percent Auto 56.3 % (45.5-73.1); Platelet Count Result 202 k/mm3 (150-375); Red Blood Count 4.62 M/mm3 (4.2-5.4); Red Cell Distribution Width 13.9 % (11.5-14.5); White Blood Count 10.1 K/mm3 (4.5-10.0)
[2023-08-17 06:32] LABS: Alanine Aminotransferase 26 U/L (6-35); Albumin Level 3.9 g/dL (3.5-5.1); Alkaline Phosphatase 52 U/L (38-126); Anion Gap 4 mmol/L (8-16); Aspartate Amino Transferase 28 U/L (14-36); Bilirubin,Total 1.1 mg/dL (0.2-1.3); Blood Urea Nitrogen 17 mg/dL (7-17); Calcium 9.5 mg/dL (8.4-10.2); Carbon Dioxide 32 mmol/L (22-30); Chloride 101 mmol/L (98-107); Estimated CRCL calculation 82 ml/min; Estimated Glomerular Filt Rate > 60; Glucose 139 mg/dL (65-110); Potassium 4.1 mmol/L (3.4-5.0); Sodium 137 mmol/L (137-145)
[2023-08-17] MEDS: ASPIRIN 325 MG TABLET PO (09:40)
[2023-08-17] MEDS: LOSARTAN POTASSIUM 50 MG TABLET PO (09:40)
[2023-08-17] MEDS: CLOPIDOGREL BISULFATE 75 MG TABLET PO (09:40)
[2023-08-17] MEDS: PRAVASTATIN SODIUM 20 MG TABLET PO (09:40)
[2023-08-17] MEDS: PANTOPRAZOLE 40 MG TABLET PO (09:40)
[2023-08-17] MEDS: hydroCHLOROthiazide 25 MG TABLET PO (09:41)
[2023-08-17] MEDS: INSULIN GLARGINE (*BKC) 100 UNITS/ML 18 UNITS SUB-Q (09:44)
[2023-08-17 13:04] LABS: Glucose Point of Care 243 mg/dl (65-105)
[2023-08-17] MEDS: INSULIN ASPART (*BKC) 100 UNITS/ML 8 UNITS SUB-Q ×2 (13:04→17:25)
[2023-08-17] MEDS: PERFLUTREN LIPID MICROSPHERES 1.5 ML VIAL DILUTED TO 10 ML TOTAL VOLUME IV PUSH (13:40)
--- NOTE | 2023-08-17 14:36 | IVDEFINITY ---
Prior to administration of IV Definity the patient was educated on the risks and benefits of the imaging enhancing agent including potential adverse side effects. The patient verbalized understanding. Allergies were verified. No exclusion criteria were identified and at least one of the following inclusion criteria were met: 1) physician request, 2) patient technically difficult to image (per the [place] [employer] guidelines of two or more segments not discernable within the apical view), or 3) questionable left ventricular function. ?
[2023-08-17 14:45] VITALS: BP 141/66; PULSE 81; RESP 18; TEMP 36.9; O2SAT 94
--- NOTE | 2023-08-17 16:24 | WPDNEURCNPN ---
Assessment and Plan Assessment and plan (1) Brain TIA: Code(s): G45.9 - Transient cerebral ischemic attack, unspecified Status: Acute (2) Type 2 diabetes mellitus with hyperglycemia, without long-term current use of insulin: Code(s): E11.65 - Type 2 diabetes mellitus with hyperglycemia Status: Acute (3) Essential (primary) hypertension: Code(s): I10 - Essential (primary) hypertension Status: Acute (4) Mixed hyperlipidemia: Code(s): E78.2 - Mixed hyperlipidemia Status: Acute Plan Kassie Dotson is a 67 year old female with a history of diabetes, obesity, anxiety, HTN, HLD, DM presenting for evaluation of transient neurological symptoms. Patient presented after developed R hand and eventually RUE and R facial numbness that was transient and self-resolved. MRI brain negative for acute infarct. Initial CTA brain/carotid read was L MCA occlusion, but final read reports small L MCA without any significant extracranial or intracranial stenosis. Etiology of TIA is cryptogenic, although she does have HLD and DM. - Would recommend MRA of brain to further visualize L MCA - Given cryptogenic etiology of TIA recommend Holter monitor on discharge with possible additional cardiac testing as outpatient - Continue aspirin 81mg daily - Plavix 75mg x 3 weeks (ABCD2 score is 5 indicating need for short term DAPT) - Switch pravastatin to Lipitor 40mg, goal LDL is <70 - Optimize BP and DM management Consult date: 08/17/23 HPI: Kassie Dotson is a 67 year old female with a history of diabetes, obesity, anxiety, HTN, HLD, DM presenting for evaluation of transient neurological symptoms. Patient presented after developed R hand and eventually RUE and R facial numbness. She reports that the symptoms lasted for less than 10 minutes. She is not able to really tell if there was any true weakness of the RUE or if she just felt subjective weakness due to the numbness. By the time she presented to [facility] ED she was asymptomatic with an NIH score of 0. Her CT head was negative for any acute changes. CTA brain/carotid was preliminarily read as L MCA occlusion. Case was discussed by ER physician with [facility] stroke team. They accepted patient for non emergent transfer given that patient was asymptomatic. CTA brain/carotid was negative for any other stenosis. Blood pressure has been mostly in the 150s systolic, but at the highest 180s systolic. EKG showed sinus rhythm. MRI brain was negative for any acute infarct. Surface echocadriogram with bubble study was done which showed normal EF and negative bubble study. She has been started on Aspirin and Plavix. She takes pravastatin 20mg daily. Her LDL from this admission is 103. Her HgbA1c is 8.9. Patient denies any recurrence of symptoms since admission. 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 AST 40, ALT 37, GGT 33 on 12/29/2022. Gastro-esophageal reflux disease without esophagitis GERD (gastroesophageal reflux disease) Hypersomnia Influenza-like illness (06/25/22) Morbid obesity with BMI of 40.0-44.9, adult Nephrolithiasis Obesity due to excess calories Other specified phobia Screening for diabetic retinopathy no diabetic retinopathy on 03/16/2023. Thrombophlebitis leg Transaminitis Venous insufficiency Family History Family History Father Cancer Mother Hypertension Social History Social History Social History:
--- NOTE | 2023-08-17 16:43 | WPDNEUROPN ---
Progress Note: A&P Assessment and Plan (1) Brain TIA: Code(s): G45.9 - Transient cerebral ischemic attack, unspecified Status: Acute (2) Type 2 diabetes mellitus with hyperglycemia, without long-term current use of insulin: Code(s): E11.65 - Type 2 diabetes mellitus with hyperglycemia Status: Acute (3) Mixed hyperlipidemia: Code(s): E78.2 - Mixed hyperlipidemia Status: Acute (4) Essential (primary) hypertension: Code(s): I10 - Essential (primary) hypertension Status: Acute Plan Kassie Dotson is a 67 year old female with a history of diabetes, obesity, anxiety, HTN, HLD, DM presenting for evaluation of transient neurological symptoms. Patient presented after developed R hand and eventually RUE and R facial numbness that was transient and self-resolved. MRI brain negative for acute infarct. Initial CTA brain/carotid read was L MCA occlusion, but final read reports small L MCA without any significant extracranial or intracranial stenosis. Etiology of TIA is cryptogenic, although she does have HLD and DM. - Would recommend MRA of brain to further visualize L MCA - Given cryptogenic etiology of TIA recommend Holter monitor on discharge with possible additional cardiac testing as outpatient - Continue aspirin 81mg daily - Plavix 75mg x 3 weeks (ABCD2 score is 5 indicating need for short term DAPT) - Switch pravastatin to Lipitor 40mg, goal LDL is <70 - Optimize BP and DM management Subjective Date/time seen: 08/17/23 16:43 Interval history: Kassie Dotson is a 67 year old female with a history of diabetes, obesity, anxiety, HTN, HLD, DM presenting for evaluation of transient neurological symptoms. Patient presented after developed R hand and eventually RUE and R facial numbness. She reports that the symptoms lasted for less than 10 minutes. She is not able to really tell if there was any true weakness of the RUE or if she just felt subjective weakness due to the numbness. By the time she presented to [place] ED she was asymptomatic with an NIH score of 0. Her CT head was negative for any acute changes. CTA brain/carotid was preliminarily read as L MCA occlusion. Case was discussed by ER physician with [facility] team. They accepted patient for non emergent transfer given that patient was asymptomatic. CTA brain/carotid was negative for any other stenosis. Blood pressure has been mostly in the 150s systolic, but at the highest 180s systolic. EKG showed sinus rhythm. MRI brain was negative for any acute infarct. Surface echocardiogram with bubble study was done which showed normal EF and negative bubble study. She has been started on Aspirin and Plavix. She takes pravastatin 20mg daily. Her LDL from this admission is 103. Her HgbA1c is 8.9. Patient denies any recurrence of symptoms since admission. Review of Systems Review of Systems: All systems reviewed & are unremarkable except as noted in HPI and below Exam Const: General: comfortable and no acute distress HENMT: Mouth: Yes moist mucous membranes Eyes: Pupils: Equal, round and reactive pupils present EOM: EOMs intact bilaterally Resp: Effort & Inspection: normal respiratory effort Skin: General skin exam: normal color Neuro: Other: Pupils equal and reactive bilaterally, EOMI, face symmetric, facial sensation intact, tongue protrudes midline, palate midline. Shoulder shrug normal. Strength 5/5 throughout. Sensation intact throughout. FNF normal bilaterally. Language comprehension and fluency intact. Gait deferred. Extrem: General: normal to inspection Psych: Mental Status: mental status grossly normal Affect: normal affect Objective Data Vital Signs Vital Signs: Vital Signs - 24 hr 08/16/23 22:00 08/16/23 20:00 08/17/23 06:00 Temperature 36.4 C L 36.4 C Pulse Rate 67 60 Respiratory Rate 20 21 H Blood Pressure 132/75 142/76 H Pulse Oximetry 99 100 Oxygen Delivery Room Air 08/17/23 08:00 08/17/23
[2023-08-17 17:00] LABS: Glucose Point of Care 217 mg/dl (65-105)
[2023-08-17] MEDS: LORazepam INJ (*CRX) 2 MG/ML VIAL 0.5 MG IV PUSH (17:26)
--- NOTE | 2023-08-17 18:11 | PM.IMPN ---
Progress Note: A&P Assessment and Plan (1) Brain TIA: Code(s): G45.9 - Transient cerebral ischemic attack, unspecified Status: Acute Assessment and Plan: Place in observation Neurology consulted: ? 1.? TIA 2.? Early diabetic neuropathy will benefit from the EMG nerve conduction study as an outpatient at a later date 3.? CTA is normal surface echocardiogram would be necessary to rule out the possibly of any cardiac involvement 4.? Continue aspirin 81mg daily and Plavix 75mg daily for the next 3 weeks only and follow-up with Dr. Leblanc HbA1c: 8.9%; Lipid panel: Unremarkable MRI brain negative for acute infarct. Initial CTA brain/carotid read was L MCA occlusion, but final read reports small L MCA without any significant extracranial or intracranial stenosis. Etiology of TIA is cryptogenic, although she does have HLD and DM. - MRA of brain to further visualize L MCA - Given cryptogenic etiology of TIA recommend Holter monitor on discharge with possible additional cardiac testing as outpatient - Continue aspirin 81mg daily - Plavix 75mg x 3 weeks (ABCD2 score is 5 indicating need for short term DAPT) - Switch pravastatin to Lipitor 40mg, goal LDL is <70 - Optimize BP and DM management (2) Morbid obesity with BMI of 40.0-44.9, adult: Code(s): E66.01 - Morbid (severe) obesity due to excess calories; Z68.41 - Body mass index [BMI] 40.0-44.9, adult Status: Acute Assessment and Plan: Lifestyle and diet modifications (3) Gastro-esophageal reflux disease without esophagitis: Code(s): K21.9 - Gastro-esophageal reflux disease without esophagitis Status: Acute Assessment and Plan: PPI (4) MOLLY (generalized anxiety disorder): Code(s): F41.1 - Generalized anxiety disorder Status: Acute Assessment and Plan: On Xanax (5) Diabetic polyneuropathy: Qualifiers: Diabetes mellitus type: type 2 Qualified Code(s): E11.42 - Type 2 diabetes mellitus with diabetic polyneuropathy Code(s): E11.42 - Type 2 diabetes mellitus with diabetic polyneuropathy Status: Acute Assessment and Plan: Unchanged (6) Type 2 diabetes mellitus with hyperglycemia, without long-term current use of insulin: Code(s): E11.65 - Type 2 diabetes mellitus with hyperglycemia Status: Acute Assessment and Plan: Continue insulin Holding Janumet HbA1c 8.9% Lipid panel: Unremarkable (7) Essential (primary) hypertension: Code(s): I10 - Essential (primary) hypertension Status: Acute Assessment and Plan: Continue hydrochlorothiazide Time Spent With Patient Time with patient: 25 - 35 minutes Subjective Date/time seen: 08/17/23 18:11 Interval history: Kassie Dotson is a 67 year old female with a history of diabetes, obesity, anxiety, HTN, HLD, DM presenting for evaluation of transient neurological symptoms. Patient presented after developed R hand and eventually RUE and R facial numbness. She reports that the symptoms lasted for less than 10 minutes. She is not able to really tell if there was any true weakness of the RUE or if she just felt subjective weakness due to the numbness. By the time she presented to [place] ED she was asymptomatic with an NIH score of 0. Her CT head was negative for any acute changes. CTA brain/carotid was preliminarily read as L MCA occlusion. Case was discussed by ER physician with [facility] team. They accepted patient for non emergent transfer given that patient was asymptomatic. CTA brain/carotid was negative for any other stenosis. Blood pressure has been mostly in the 150s systolic, but at the highest 180s systolic. EKG showed sinus rhythm. MRI brain was negative for any acute infarct. Surface echocardiogram with bubble study was done which showed normal EF and negative bubble study. She has been started on Aspirin and Plavix. She takes pravastatin 20mg daily. Her LDL from this admission is 103. Her HgbA1c is 8.9. Pat
[2023-08-17 22:02] VITALS: BP 127/61; PULSE 80; RESP 20; TEMP 37.1; O2SAT 98
[2023-08-17] MEDS: INSULIN ASPART (*BKC) 100 UNITS/ML SUB-Q (22:36)
[2023-08-17 22:55] LABS: Basophils Absolute Auto 0.1 K/mm3 (0.0-0.1); Basophils Percent Auto 0.5 % (0.2-1.2); Eosinophils Absolute Auto 0.2 K/mm3 (0-0.3); Eosinophils Percent Auto 2.1 % (0-4.4); Hematocrit 39.6 % (37.0-47.0); Hemoglobin 12.4 g/dL (12.0-15.0); Immature Granulocyte Absolute 0.08 K/mm3 (0.00-0.031); Immature Granulocyte Percent A 0.7 % (0-0.5); Lymphocytes Absolute Auto 2.45 K/mm3 (0.9-3.2); Lymphocytes Percent Auto 22.8 % (18.3-44.2); Mean Corpuscular HGB Conc 31.3 g/dl (32-36); Mean Corpuscular Hemoglobin 27.7 pg (26-34); Mean Corpuscular Volume 88.6 fl (80-100); Mean Platelet Volume 12.1 fl (7.4-10.4); Monocytes Percent Auto 9.5 % (2.6-8.5); Neutrophils Absolute Auto 6.9 K/mm3 (1.3-6.7); Neutrophils Percent Auto 64.4 % (45.5-73.1); Platelet Count Result 219 k/mm3 (150-375); Red Blood Count 4.47 M/mm3 (4.2-5.4); Red Cell Distribution Width 13.8 % (11.5-14.5); White Blood Count 10.7 K/mm3 (4.5-10.0)
[2023-08-17 23:06] LABS: Alanine Aminotransferase 24 U/L (6-35); Albumin Level 3.9 g/dL (3.5-5.1); Alkaline Phosphatase 55 U/L (38-126); Anion Gap 8 mmol/L (8-16); Aspartate Amino Transferase 28 U/L (14-36); Blood Urea Nitrogen 17 mg/dL (7-17); Calcium 9.4 mg/dL (8.4-10.2); Carbon Dioxide 26 mmol/L (22-30); Chloride 102 mmol/L (98-107); Estimated CRCL calculation 82 ml/min; Estimated Glomerular Filt Rate > 60; Glucose 286 mg/dL (65-110); Potassium 4.1 mmol/L (3.4-5.0); Sodium 136 mmol/L (137-145)
[2023-08-17 23:20] VITALS: O2SAT 98
[2023-08-18] LABS: Glucose Point of Care 308 mg/dl (65-105)
[2023-08-18 00:11] LABS: Glucose Point of Care 261 mg/dl (65-105)
[2023-08-18 06:00] VITALS: BP 137/72; PULSE 60; RESP 20; TEMP 36.4; O2SAT 98
[2023-08-18 08:47] LABS: Glucose Point of Care 175 mg/dl (65-105)
[2023-08-18] MEDS: ASPIRIN 325 MG TABLET PO (08:47)
[2023-08-18] MEDS: CLOPIDOGREL BISULFATE 75 MG TABLET PO (08:47)
[2023-08-18] MEDS: LOSARTAN POTASSIUM 50 MG TABLET PO (08:47)
[2023-08-18] MEDS: PANTOPRAZOLE 40 MG TABLET PO (08:47)
[2023-08-18] MEDS: hydroCHLOROthiazide 25 MG TABLET PO (08:47)
[2023-08-18] MEDS: PRAVASTATIN SODIUM 20 MG TABLET PO (08:47)
[2023-08-18] MEDS: INSULIN GLARGINE (*BKC) 100 UNITS/ML 18 UNITS SUB-Q (08:49)
--- NOTE | 2023-08-18 10:56 | WPDNEUROPN ---
Progress Note: A&P Assessment and Plan (1) Brain TIA: Code(s): G45.9 - Transient cerebral ischemic attack, unspecified Status: Acute (2) Type 2 diabetes mellitus with hyperglycemia, without long-term current use of insulin: Code(s): E11.65 - Type 2 diabetes mellitus with hyperglycemia Status: Acute (3) Mixed hyperlipidemia: Code(s): E78.2 - Mixed hyperlipidemia Status: Acute (4) Essential (primary) hypertension: Code(s): I10 - Essential (primary) hypertension Status: Acute Plan Kassie Dotson is a 67 year old female with a history of diabetes, obesity, anxiety, HTN, HLD, DM presenting for evaluation of transient neurological symptoms. Patient presented after developed R hand and eventually RUE and R facial numbness that was transient and self-resolved. MRI brain negative for acute infarct. Initial CTA brain/carotid read was L MCA occlusion, but final read reports small L MCA without any significant extracranial or intracranial stenosis. Etiology of TIA is cryptogenic, although she does have HLD and DM. - Given cryptogenic etiology of TIA recommend Holter monitor on discharge with possible additional cardiac testing as outpatient - Continue aspirin 81mg daily - Plavix 75mg x 3 weeks (ABCD2 score is 5 indicating need for short term DAPT) - Switch pravastatin to Lipitor 40mg, goal LDL is <70 - Optimize BP and DM management Subjective Date/time seen: 08/18/23 10:56 Interval history: Kassie Dotson is a 67 year old female with a history of diabetes, obesity, anxiety, HTN, HLD, DM presenting for evaluation of transient neurological symptoms. Patient presented after developed R hand and eventually RUE and R facial numbness. She reports that the symptoms lasted for less than 10 minutes. She is not able to really tell if there was any true weakness of the RUE or if she just felt subjective weakness due to the numbness. By the time she presented to [place] ED she was asymptomatic with an NIH score of 0. Her CT head was negative for any acute changes. CTA brain/carotid was preliminarily read as L MCA occlusion. Case was discussed by ER physician with [facility] stroke team. They accepted patient for non emergent transfer given that patient was asymptomatic. CTA brain/carotid was negative for any other stenosis. Blood pressure has been mostly in the 150s systolic, but at the highest 180s systolic. EKG showed sinus rhythm. MRI brain was negative for any acute infarct. Surface echocardiogram with bubble study was done which showed normal EF and negative bubble study. She has been started on Aspirin and Plavix. She takes pravastatin 20mg daily. Her LDL from this admission is 103. Her HgbA1c is 8.9. Patient denies any recurrence of symptoms since admission. MRA brain confirmed small L MCA. Surface echo with bubble study is negative for shunt. Review of Systems Review of Systems: All systems reviewed & are unremarkable except as noted in HPI and below Exam Const: General: comfortable and no acute distress HENMT: Mouth: Yes moist mucous membranes Eyes: Pupils: Equal, round and reactive pupils present EOM: EOMs intact bilaterally Resp: Effort & Inspection: normal respiratory effort Skin: General skin exam: normal color Neuro: Other: Pupils equal and reactive bilaterally, EOMI, face symmetric, facial sensation intact, tongue protrudes midline, palate midline. Shoulder shrug normal. Strength 5/5 throughout. Sensation intact throughout. FNF normal bilaterally. Language comprehension and fluency intact. Gait deferred. Extrem: General: normal to inspection Psych: Mental Status: mental status grossly normal Affect: normal affect Objective Data Vital Signs Vital Signs: Vital Signs - 24 hr 08/17/23 14:45 08/17/23 22:02 08/17/23 20:00 Temperature 36.9 C 37.1 C Pulse Rate 81 80 Respiratory Rate 18 20 Blood Pressure 141/66 H 127/61 Pulse Oximetry 94 98 Oxygen Delivery Room Air
--- NOTE | 2023-08-18 13:31 | PM.DS ---
DS: Admitting Diagnosis Discharge Date 08/18/23 Admitting Diagnosis 1. TIA 2. Stroke-like symptoms DS: Discharge Diagnosis Discharge Diagnosis (1) Brain TIA: Code(s): G45.9 - Transient cerebral ischemic attack, unspecified Status: Acute Assessment and Plan: Place in observation Neurology consulted: ? 1.? TIA 2.? Early diabetic neuropathy will benefit from the EMG nerve conduction study as an outpatient at a later date 3.? CTA is normal surface echocardiogram would be necessary to rule out the possibly of any cardiac involvement 4.? Continue aspirin 81mg daily and Plavix 75mg daily for the next 3 weeks only and follow-up with Dr. Leblanc HbA1c: 8.9%; Lipid panel: Unremarkable MRI brain negative for acute infarct. Initial CTA brain/carotid read was L MCA occlusion, but final read reports small L MCA without any significant extracranial or intracranial stenosis. Etiology of TIA is cryptogenic, although she does have HLD and DM. - MRA of brain to further visualize L MCA - Given cryptogenic etiology of TIA recommend Holter monitor on discharge with possible additional cardiac testing as outpatient - Continue aspirin 81mg daily - Plavix 75mg x 3 weeks (ABCD2 score is 5 indicating need for short term DAPT) - Switch pravastatin to Lipitor 40mg, goal LDL is <70 - Optimize BP and DM management (2) Pulmonary nodule: Code(s): R91.1 - Solitary pulmonary nodule Status: Acute (3) Morbid obesity with BMI of 40.0-44.9, adult: Code(s): E66.01 - Morbid (severe) obesity due to excess calories; Z68.41 - Body mass index [BMI] 40.0-44.9, adult Status: Acute Assessment and Plan: Lifestyle and diet modifications (4) Gastro-esophageal reflux disease without esophagitis: Code(s): K21.9 - Gastro-esophageal reflux disease without esophagitis Status: Acute Assessment and Plan: PPI (5) MOLLY (generalized anxiety disorder): Code(s): F41.1 - Generalized anxiety disorder Status: Acute Assessment and Plan: On Xanax (6) Diabetic polyneuropathy: Qualifiers: Diabetes mellitus type: type 2 Qualified Code(s): E11.42 - Type 2 diabetes mellitus with diabetic polyneuropathy Code(s): E11.42 - Type 2 diabetes mellitus with diabetic polyneuropathy Status: Acute Assessment and Plan: Unchanged (7) Type 2 diabetes mellitus with hyperglycemia, without long-term current use of insulin: Code(s): E11.65 - Type 2 diabetes mellitus with hyperglycemia Status: Acute Assessment and Plan: Continue insulin Holding Janumet HbA1c 8.9% Lipid panel: Unremarkable (8) Essential (primary) hypertension: Code(s): I10 - Essential (primary) hypertension Status: Acute Assessment and Plan: Continue hydrochlorothiazide DS: Summary Hospital Course Reason for hospitalization: 1. Stroke-like symptoms 2. Probable TIA Hospital Course: Kassie Dotson is a 67 yo F with a mHx significant for obesity, anxiety, GERD, IDDM, dyslipidemia. 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 On presenting to the [facility] ED she was asymptomatic with an NIH score of 0. Neurology was consulted A CT head was negative for any acute changes. CTA brain/carotid was preliminarily read as L MCA occlusion. ER physician with [facility] stroke team. They accepted patient for non emergent transfer given that patient was asymptomatic. CTA brain/carotid was negative for any other stenosis. EKG showed sinus rhythm. MRI brain was negative for any acute infarct. Echocardiogram with bubble study was done which showed normal EF and negative bubble study. She has been started on Aspirin and Plavix. She takes pravastatin 20mg daily. Her LDL from this admission is 103. Her HgbA1c is 8.9. Patient denies any recurrence
--- NOTE | 2023-08-18 13:51 | PC.NURSE ---
Pt educated on the importance of blood sugar checks. 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 Pt also instructed to take monitor technician orders to pcp for placement of 30 day monitor. Pt and verbalized understanding.
== END 2023-08-18 14:12 | disposition home or self-care (01) ==
LOC: ANHED 08-14 02:36 → ANH3MED 08-15 19:36 → ANH3MEDSUR 08-21 10:31
PROVIDERS: Admitting Provider Internal Medicine; Emergency Provider Emergency Medicine; PCP Family Medicine; Visit Provider Internal Medicine
DX: G45.9 Transient cerebral ischemic attack, unspecified (principal); R91.8 Other nonspecific abnormal finding of lung field; E78.2 Mixed hyperlipidemia; E11.65 Type 2 diabetes mellitus with hyperglycemia; I11.9 Hypertensive heart disease without heart failure; R94.31 Abnormal electrocardiogram [ECG] [EKG]; F41.1 Generalized anxiety disorder; I34.81 Nonrheumatic mitral (valve) annulus calcification; R29.700 NIHSS score 0; E11.42 Type 2 diabetes mellitus with diabetic polyneuropathy; K21.9 Gastro-esophageal reflux disease without esophagitis; E66.01 Morbid (severe) obesity due to excess calories; Z68.41 Body mass index [BMI] 40.0-44.9, adult; Z86.16 Personal history of COVID-19; Z79.4 Long term (current) use of insulin; Z79.84 Long term (current) use of oral hypoglycemic drugs; Z79.899 Other long term (current) drug therapy; Z87.891 Personal history of nicotine dependence
CPT/HCPCS: 36415; 70450; 70496; 70498; 70544; 70553; 71045; 71250; 80053; 80061; 82948; 83036; 83735; 84484; 85025; 85610; 85730; 93005; 96361; 96374; 96375; 99285; A9270; A9577; C8929; G0378; J1815; J2060; J7030; Q9957; Q9967

== ENCOUNTER 2023-09-22 14:16 | Outpatient (CLI) | payer MEDICARE, SELFPAY ==
[2023-09-22 15:11] LABS: Appearance Urine Clear (Clear); Bacteria Urine None Seen /hpf; Bilirubin Urine Negative (Negative); Blood Urine 3+ (Negative); Color Urine Yellow (Yellow); Glucose Urine UA Negative (Negative); Ketones Urine Negative (Negative); Leukocyte Esterase Ur Trace LEU/UL (Negative); Nitrate Urine Negative (Negative); Non Pathogenic Casts 0-2; Protein Urine Negative (Negative); RBC Urine 21-50 /hpf (0-2); Specific Grav Ur 1.007 (1.001-1.035); Squamous Epithelial Cell Urine None Seen /hpf (Few); Urobilinogen Urine 0.2 mg/dL (<2.0); WBC Urine 0-5 /hpf (0-3); pH Urine 6.5 (5.0-9.0)
[2023-09-22 15:22] LABS: Add Urine Microscopic? YES
== END 2023-09-22 14:17 | disposition home or self-care (01) ==
PROVIDERS: PCP Family Medicine; Visit Provider Nurse Practitioner Family
DX: R10.30 Lower abdominal pain, unspecified (principal); R31.9 Hematuria, unspecified
CPT/HCPCS: 81001

== ENCOUNTER 2023-10-11 13:53 | Outpatient (CLI) | payer MEDICARE, SELFPAY ==
--- NOTE | ~2023-10-11 | XR_ITS ---
Supine and upright views of the abdomen Clinical history: Hematuria Findings: Bowel gas pattern is nonspecific. No evidence for obstruction or free air. Suspected small bilateral renal stones. Osseous structures are intact. Impression: Suspected small bilateral renal stones. Reviewed, dictated and finalized at location M. Impression: Suspected small bilateral renal stones.
--- NOTE | ~2023-10-11 | CT_ITS ---
EXAMINATION: CT abdomen pelvis wo/w con DATE: 10/11/2023 14:48 INDICATION: Gross hematuria TECHNIQUE: Computed tomography (CT) of the abdomen and pelvis was performed without and with intraven ous contrast using a total of 130 mL Omnipaque-350 intravenous contrast with a double-bolus technique for simultaneous opacification of the renal parenchyma and renal collecting system. Automated exposu re control and iterative reconstruction technique were employed. Exam dose: 2699.01 mGy-cm total exa m DLP. COMPARISON: August 14, 2023 CT chest September 05, 2016 CT abdomen pelvis is not available from the archive at this time. FINDINGS: Numerous bilateral pulmonary masses are noted, including 2.1 cm right lower lobe mass, suggesting pul monary metastatic disease. No infiltrate or consolidation at the lung bases. Heart size is within normal range. Coronary artery calcification. No pericardial or pleural effusion. There are numerous stones filling the gallbladder lumen. No gallbladder wall thickening or perichole cystic fluid or fat stranding. No bile duct or pancreatic duct dilatation. No hepatic, splenic or pancreatic space-occupying mass lesion is evident. Normal morphology of the adrenal glands. 9 mm and 18 mm the superior exophytic probable left renal cysts. 7 mm lateral exophytic upper pole le ft renal probable cyst. There are 3 small nonobstructing right renal calculi, the largest approximately 5 mm. Mild right hydronephrosis and pelviectasis, likely due to ureteropelvic disproportion Pinpoint nonobstructing upper pole left renal calculus and 5.5 mm lower pole left renal nonobstructin g calculus. 4.5 x 7.2 mm left ureteral calculus is noted at the upper sacral level, with moderate proximal left h ydroureteronephrosis as result. The left ureter is decompressed distally. The urinary bladder is unremarkable. Status post hysterectomy. There is atherosclerotic calcification but normal caliber of the abdominal aorta. No intraperitoneal or retroperitoneal or pelvic mass lesion or adenopathy or ascites. There is a prominent up to 8.1 x 7.6 x 5.7 cm immediately infraumbilical ventral midline abdominal he rnia containing fat and a short segment of the mid sigmoid colon without strangulation or obstruction . Adjacent up to 5.1 cm wide defect fat-containing umbilical hernia. Mild to moderate degenerative change of the thoracic and lumbar spine. No suspicious osteolytic or os teoblastic lesions are noted. IMPRESSION: 4.65 x 7.2 mm obstructing left calculus at the upper sacral level with moderate proximal left hydroureteronephrosis Bilateral nonobstructive nephrolithiasis Mild right pelviectasis and left hydronephrosis likely secondary to ureteropelvic disproportion Probable exophytic left renal cysts Extensive cholelithiasis Immediately infraumbilical fat and sigmoid colon containing midline ventral abdominal wall up to 8.1 cm hernia; no evidence of obstruction or strangulation 5.1 cm x 3 cm fat-containing umbilical hernia Status post hysterectomy Reviewed, dictated and finalized at Location A. Reviewed, dictated and finalized at location B. IMPRESSION: 4.65 x 7.2 mm obstructing left calculus at the upper sacral level with moderate proximal left hydroureteronephrosis Bilateral nonobstructive nephrolithiasis Mild right pelviectasis and left hydronephrosis likely secondary to ureteropelv ic disproportion Probable exophytic left renal cysts Extensive cholelithiasis Immediately infraumbilical fat and sigmoid colon containing midline ventral abd ominal wall up to 8.1 cm hernia; no evidence of obstruction or strangulation 5.1 cm x 3 cm fat-containing umbilical hernia Status post hysterectomy
[2023-10-11 14:28] LABS: Estimated Glomerular Filt Rate 56
== END 2023-10-11 13:54 | disposition home or self-care (01) ==
PROVIDERS: PCP Family Medicine
DX: R31.0 Gross hematuria (principal); N13.2 Hydronephrosis with renal and ureteral calculous obstruction; K80.20 Calculus of gallbladder without cholecystitis without obstruction; K42.9 Umbilical hernia without obstruction or gangrene; K43.9 Ventral hernia without obstruction or gangrene; Z90.710 Acquired absence of both cervix and uterus
CPT/HCPCS: 74018; 74178; Q9967

== ENCOUNTER 2023-10-13 14:56 | Outpatient (CLI) | payer MEDICARE, SELFPAY ==
--- NOTE | ~2023-10-13 | XR_ITS ---
EXAM: XR abdomen/kub 1V DATE: 10/13/2023 15:13 HISTORY: LEFT URETERAL STONE . COMPARISON: CT and x-ray 10/11/2023. FINDINGS: Multiple pulmonary nodules. Normal bowel gas pattern. Enlarged liver. Cholelithiasis. Mult iple nonobstructing bilateral renal calcifications. The distal left ureteral calcification is probabl y still present and probably unchanged in location but is less well seen radiographically. Regional b ones and soft tissues normal for age. IMPRESSION: Multiple pulmonary nodules concerning for metastatic disease. Hepatomegaly. Cholelithiasi s. Bilateral nephrolithiasis. Distal left ureteral stone or stones, probably unchanged in position bu t were better seen by CT. Reviewed, dictated and finalized at location K. IMPRESSION: Multiple pulmonary nodules concerning for metastatic disease. Hepat omegaly. Cholelithiasis. Bilateral nephrolithiasis. Distal left ureteral stone or stones, probably unchanged in position but were better seen by CT.
== END 2023-10-13 14:57 | disposition home or self-care (01) ==
LOC: ANHIMG 14:57
PROVIDERS: PCP Family Medicine; Visit Provider Urology
DX: N20.1 Calculus of ureter (principal); R91.8 Other nonspecific abnormal finding of lung field
CPT/HCPCS: 74018

== ENCOUNTER 2023-11-16 12:10 | Outpatient (CLI) | payer MEDICARE, SELFPAY ==
[2023-11-16 13:12] LABS: Anion Gap 7 mmol/L (4-12); Blood Urea Nitrogen 13 mg/dL (7-17); Carbon Dioxide 27 mmol/L (22-30); Chloride 104 mmol/L (98-107); Estimated Glomerular Filt Rate > 60; Glucose 164 mg/dL (65-110); Potassium 3.7 mmol/L (3.4-5.0); Sodium 138 mmol/L (137-145)
== END 2023-11-16 12:11 | disposition home or self-care (01) ==
PROVIDERS: PCP Family Medicine; Referring Provider Urology; Visit Provider Anesthesiology
DX: Z01.818 Encounter for other preprocedural examination (principal); N20.0 Calculus of kidney; E11.65 Type 2 diabetes mellitus with hyperglycemia
CPT/HCPCS: 36415; 80048; 87086; 87088

== ENCOUNTER 2023-11-24 00:31 | Day surgery (SDC) | payer MEDICARE, SELFPAY ==
[2023-11-15 14:54] VITALS: BMI 39.5
--- NOTE | 2023-11-15 15:07 | PC.NURSE ---
PRE-OP INSTRUCTIONS, PLEASE READ CAREFULLY Report to the Outpatient Waiting Room, entrance under the green pavilion located off [facility], at time _0700_ on date _11/24/23_. Planned Procedure Time: _0900_. Time changes happen often and if your time is changed the preop area will call you the afternoon before. - You and your visitor will be asked to self-screen and do not enter if you have any COVID symptoms. - A mask is optional within the hospital at this time. Patients may have clear liquids (water, carbonated beverages, clear teas, apple juice) until 3 hours prior to surgery (0600 AM) with a maximum of 20 ounces. - No food from midnight until time of surgery Take the following medications with a SIP of water the morning of surgery: _ALPRAZOLAM IF NEEDED DO NOT TAKE ANY INSULIN AM OF SURGERY_ DO NOT STOP ANY OF YOUR OTHER PRESCRIPTION MEDICATIONS PRIOR TO SURGERY ?EXCEPT THE FOLLOWING Medications to discontinue per DR. HESTER - _ASPIRIN 7 DAYS PRIOR TO SURGERY, Date to take last dose 11/16/23_ Medications to discontinue per ANESTHESIA -_VITAMINS AND SUPPLEMENTS 3 DAYS PRIOR TO SURGERY, Date to take last dose 11/20/23_ Please no make-up, nail thai, hairspray, perfume, deodorant, or body powder the day of surgery. No jewelry (including any body piercings) or valuables the day of surgery, leave them at home. Please take a shower or bath the night before, or the morning of, surgery with an antibacterial soap. Wear comfortable, loose fitting clothing. - Jewelry must be removed prior to entering the operating room. Rings and piercings that are not removed may be cut off. - The hospital will not accept responsibility for valuables. - Please leave all valuables, including medications, at home the day of surgery. If you are going home after surgery, a licensed mechanic driver must drive you home. - NO public transportation without another adult if you receive anesthesia. - We recommend that an adult stay with you for 24 hours following discharge. - We also recommend that you do not drive, make important decision, drink alcoholic beverages, or take any drugs that were not prescribed by your health care provider for at least 24 hours after your discharge time. Follow any additional instructions given to you from your surgeon. If you or anyone in your household have experienced Covid symptoms in the past week, please notify your surgeon or the nurse liaison at the phone number below for possible testing. Telephone instructions given to _PATIENT_and asked if any additional questions and then verbalized understanding. Patient advised to call surgeon office or pre surgery nurse liaison [phone] if any additional questions.
[2023-11-16] MEDS: ceFAZolin 2 GM/D5W 50 ML 2 GM/50 ML BAG IVPB (09:05)
--- NOTE | 2023-11-19 08:58 | PM.IMHP ---
H&P: HPI History of Present Illness Date/Time: 11/19/23 08:58 Chief Complaint: ureteral stone Narrative: left ureteral stone. NOt visible on KUB Review of Systems Review of Systems: All systems reviewed & are unremarkable except as noted in HPI and below FORMERLY [facility], [facility]1983 Past Medical History Medical History Acute non-recurrent maxillary sinusitis Acute otitis media, right Anxiety At low risk for fall Bilateral renal stones has small bilateral renal stones on CT on 10/11/2023. BMI 39.0-39.9,adult BMI 40.0-44.9, adult BMI 40.0-44.9, adult Bronchitis Colon cancer screening Cough due to EDDIE inhibitor COVID-19 (09/09/20) Diabetes Elevated liver enzymes AST 120 and ALT 124 on 04/28/2020. AST 40, ALT 37, GGT 33 on 12/29/2022. Gastro-esophageal reflux disease without esophagitis GERD (gastroesophageal reflux disease) Hematuria CT of abdomen and pelvis 10/11/2023 with small bilateral renal stones. Hypersomnia Influenza-like illness (06/25/22) Lower abdominal pain Morbid obesity with BMI of 40.0-44.9, adult Multiple pulmonary nodules determined by computed tomography of lung (~09/05/16) multiple pulmonary nodules on CT 08/14/2023 in the ER with largest at 2.1 cm in the right middle lobe, increased from 09/05/2016 with possible granulomatous disease or malignancy. Radiologist recommend CT-guided biopsy. Nephrolithiasis Obesity due to excess calories Osteoarthritis of hands, bilateral Other specified phobia Screening for diabetic retinopathy no diabetic retinopathy on 03/16/2023. Thrombophlebitis leg Transaminitis Venous insufficiency Welcome to Medicare preventive visit Family History Family History Father Cancer Mother Hypertension Social History Social History Social History: Smoking packs per day: 0.5 Smoking cigarettes per day: 10.0 Years smoked: 5 Smoking pack-years: 2.50 Smoking status: Former smoker Tobacco type: cigarettes Second hand tobacco smoke exposure: No Smoking end date: 07/10/92 Alcohol intake: never Substance use: never Substance use type: does not use Do You Feel Safe in your Home?: Yes Lack of Transportation: No Lack of Food: Never True Current Housing: I Have Housing Concerned About Future Housing: No Difficulty Paying Gas/Electric Bills: No Difficulty Paying for Meds: No Currently Unemployed: No Education: High School Diploma/GED Difficulty w/ Childcare or Family Care: No Living arrangements: with family Occupation/Education: occupation Gender identity (if verbalized by the patient): Female Sexual Orientation (if Verbalized by the Patient): Straight or Heterosexual Spiritual care concerns: No Meds Home Medications and Allergies Home Medications Medication Instructions Recorded Confirmed Type alprazolam 0.5 mg tablet 0.5 mg PO TID PRN Anxiety 08/14/23 11/15/23 History hydrochlorothiazide 25 mg tablet 25 mg PO DAILY 08/14/23 11/15/23 History insulin aspart (niacinamide) 8 unit subcut TIDWM 08/14/23 11/15/23 History (U-100) 100 unit/mL subcutaneous solution (Fiasp U-100 Insulin) insulin degludec 100 unit/mL 18 unit subcut DAILY 08/14/23 11/15/23 History subcutaneous solution (Tresiba U-100 Insulin) losartan 50 mg tablet 50 mg PO DAILY 08/14/23 11/15/23 History omeprazole 20 mg capsule,delayed 20 mg PO DAILY 08/14/23 11/15/23 History release clobetasol 0.05 % topical cream 1 applic topical BID PRN rash #45 09/15/23 11/15/23 Rx grams potassium citrate 10 mEq (1,080 20 meq PO DAILY #90 tabs 09/28/23 11/15/23 Rx mg) tablet,extended release ascorbic acid (vitamin C) 1,000 mg 1 g PO DAILY 11/15/23 11/15/23 History tablet (Vitamin C) aspirin 81 mg capsule 162 mg PO DAILY 11/15/23 11/15/23 History davon root extract 1 tab-cap DAILY
[2023-11-24] VITALS (12 sets, daily range): BP systolic 127–160; BP diastolic 65–84; PULSE 46–92; RESP 16–22; TEMP 36.1–37; O2SAT 96–100
--- NOTE | ~2023-11-24 | XR_ITS ---
EXAMINATION: XR retrograde pyelo w/stent LT DATE: 11/24/2023 09:33 INDICATION: Left ureteral stone. TECHNIQUE: 73 intraoperative fluoroscopic views of the abdomen and pelvis were obtained. I was not pr esent. Fluoroscopy exposure time was 25 seconds. COMPARISON: CT abdomen and pelvis 10/11/2023 FINDINGS: The left-sided retrograde pyelogram demonstrates a stone in the mid ureter. The final image s demonstrate a left internal ureteral stent in expected position. IMPRESSION: 1. Stone in the mid left ureter. 2. Left internal ureteral stent in expected position. Reviewed, dictated and finalized at location E.
--- NOTE | 2023-11-24 04:43 | WPDHPUPDATE1 ---
History and Physical Update Update Date/Time: 11/24/23 04:43 History and Physical has been reviewed, including an updated exam of the patient. There are NO changes in the patient's condition. Risks, benefits, and alternatives have been discussed and questions answered. Patient agrees to proceed with procedure.
[2023-11-24 07:55] LABS: Glucose Point of Care 170 mg/dl (65-105)
[2023-11-24] MEDS: LACTATED RINGERS 1,000 ML 30 ML IV CONT (07:55)
--- NOTE | 2023-11-24 08:31 | WPDANESEPPF ---
Anes - Initial Pre Proc Eval Procedure: Operation Date: 11/24/23 09:00 Proposed Procedures p Cystoscopy, Left Ureteroscopy, Left Retrograde Pyelogram, Left Stent Placement - Ja Fields MD Date/Time: 11/24/23 08:31 Surgeon: Ja Fields MD Pre Op Diagnosis: left ureteral stone Patient Data Age: 67 Gender: F Height: 1.63 m Weight: 105.6 kg Last Vital Signs Temp 98.6 F 11/24/23 07:55 Pulse 62 11/24/23 07:55 Resp 16 11/24/23 07:55 BP 127/65 11/24/23 07:55 Pulse Ox 98 11/24/23 07:55 O2 Del Method Room Air 11/24/23 07:55 Allergies Allergy/AdvReac Type Severity Reaction Status Date / Time ciprofloxacin Allergy Intermediate Hives / Verified 11/24/23 07:18 Red Face codeine Allergy Unknown Hives Verified 11/24/23 07:18 Home Medications Medication Instructions Recorded Confirmed Type alprazolam 0.5 mg tablet 0.5 mg PO TID PRN Anxiety 08/14/23 11/24/23 History hydrochlorothiazide 25 mg tablet 25 mg PO DAILY 08/14/23 11/24/23 History insulin aspart (niacinamide) 8 unit subcut TIDWM 08/14/23 11/24/23 History (U-100) 100 unit/mL subcutaneous solution (Fiasp U-100 Insulin) insulin degludec 100 unit/mL 18 unit subcut DAILY 08/14/23 11/24/23 History subcutaneous solution (Tresiba U-100 Insulin) losartan 50 mg tablet 50 mg PO DAILY 08/14/23 11/24/23 History omeprazole 20 mg capsule,delayed 20 mg PO DAILY 08/14/23 11/24/23 History release clobetasol 0.05 % topical cream 1 applic topical BID PRN rash #45 09/15/23 11/15/23 Rx grams potassium citrate 10 mEq (1,080 20 meq PO DAILY #90 tabs 09/28/23 11/24/23 Rx mg) tablet,extended release ascorbic acid (vitamin C) 1,000 mg 1 g PO DAILY 11/15/23 11/24/23 History tablet (Vitamin C) aspirin 81 mg capsule 162 mg PO DAILY 11/15/23 11/24/23 History davon root extract 1 tab-cap DAILY 11/15/23 11/24/23 History tamsulosin 0.4 mg capsule 0.4 mg PO QAM 11/15/23 11/24/23 History vitamin A-vitamin C-vit E-min 1 tablet DAILY 11/15/23 11/24/23 History tablet Laboratory Tests 11/24/23 07:52 POC Capillary Glucose 170 H mg/dl (65-105) Patient hx anesthesia problems: none Family hx anesthesia problems: none Results Review: All pre-operative results and documents have been reviewed as part of the pre-operative evaluation. [facility] Past Medical History Medical History Acute non-recurrent maxillary sinusitis Acute otitis media, right Anxiety At low risk for fall Bilateral renal stones has small bilateral renal stones on CT on 10/11/2023. BMI 39.0-39.9,adult BMI 40.0-44.9, adult BMI 40.0-44.9, adult Bronchitis Colon cancer screening Cough due to EDDIE inhibitor COVID-19 (09/09/20) Diabetes Elevated liver enzymes AST 120 and ALT 124 on 04/28/2020. AST 40, ALT 37, GGT 33 on 12/29/2022. Gastro-esophageal reflux disease without esophagitis GERD (gastroesophageal reflux disease) Hematuria CT of abdomen and pelvis 10/11/2023 with small bilateral renal stones. Hypersomnia Influenza-like illness (06/25/22) Lower abdominal pain Morbid obesity with BMI of 40.0-44.9, adult Multiple pulmonary nodules determined by computed tomography of lung (~09/05/16) multiple pulmonary nodules on CT 08/14/2023 in the ER with largest at 2.1 cm in the right middle lobe, increased from 09/05/2016 with possible granulomatous disease or malignancy. Radiologist recommend CT-guided biopsy. Nephrolithiasis Obesity due to excess calories Osteoarthritis of hands, bilateral Other specified phobia Screening for diabetic retinopathy no diabetic retinopathy on 03/16/2023. Thrombophlebitis leg Transaminitis Venous insufficiency Welcome to Medicare preventive visit Family History Family History Father Cancer Mother Hypertension Social History Social History (Reviewed 11/24/23 @ 08:31 by Percy Rosa
--- NOTE | 2023-11-24 09:39 | P.OP_ITS ---
Procedure Note - Detailed Date of Procedure 11/24/23 Pre-op Diagnosis left ureteral stone Post-op Diagnosis Same Procedure Performed Skin, left retrograde pyelogram, left ureteroscopy, holmium laser lithotripsy, stone extraction, stent placed Surgeon Ja Fields MD Inside Account Representative none Anesthesia General Indications she has long-term left ureteral stone. It is largely asymptomatic, but has hydronephrosis. She presents today for intervention. She understands risks of bleeding, infection, damage to the urinary tract, inability remove the stone. She agrees to proceed Findings large left mid to distal ureteral stone. Completely fragmented and removed Description of Procedure she was correctly identified. Informed consent obtained. She had from the operating room. She was given general anesthesia. She was placed in dorsal lithotomy position. She has prepped draped sterile fashion. Time-out performed. I performed cystoscopy. The bladder was examined was normal. There was no tumors or stones. There was no abnormalities. Did retrograde pyelogram on the left. There was a delicate distal ureter. Stone was seen in the mid to distal ureter. This was seen as a filling defect. There was hydronephrosis proximal to the stone. There was no extravasation I dilated the ureter with the 810 dilator. I placed a guidewire into the kidney. I then performed rigid ureteroscopy. The stone was encountered. It was fragmented using the holmium laser on the dusting setting. I used a basket to extract the larger fragments. I re-examined the ureter all the way up to the proximal ureter. There was no significant stone fragments. I then placed a left ureteral stent. I placed a 4.8 variable length stent. Proximal coil in the renal pelvis. Distal coil in the bladder. The bladder was drained. She was awakened transferred to PACU in stable Implants ureteral stent Estimated Blood Loss 1 Drains No Packing No Pathology Yes ( stone) Complications No immediate complications Condition Stable Disposition PACU
[2023-11-24 09:47] LABS: Glucose Point of Care 167 mg/dl (65-105)
[2023-11-24] MEDS: HYDROcodone/acetaminophen (*CRX) 5-325 MG TABLET 1 TAB PO (10:45)
[2023-11-24] MEDS: KETOROLAC 30 MG/ML VIAL (*BKC) IV PUSH (11:13)
[2023-11-24] MEDS: oxyBUTYnin CHLORIDE 5 MG TABLET PO (11:16)
[2023-11-24] MEDS: fentaNYL CITRATE INJ (*CRX) 100 MCG/2 ML VIAL 25 MCG IV PUSH ×2 (11:43→12:20)
== END 2023-11-24 12:40 | disposition home or self-care (01) ==
PROVIDERS: PCP Family Medicine; Visit Provider Urology
PROC: (CPT 52352; principal; 2023-11-24 09:00)
DX: N20.1 Calculus of ureter (principal); E11.9 Type 2 diabetes mellitus without complications; F41.9 Anxiety disorder, unspecified; K21.9 Gastro-esophageal reflux disease without esophagitis; E66.01 Morbid (severe) obesity due to excess calories; Z68.41 Body mass index [BMI] 40.0-44.9, adult; Z87.891 Personal history of nicotine dependence; Z79.4 Long term (current) use of insulin; Z79.82 Long term (current) use of aspirin
CPT/HCPCS: 52356; 36415; 74420; 80048; 82365; 82948; 87086; 88300; A9270; C1758; C1769; C2617; J1100; J1885; J2250; J2405; J2704; J3010; J7120; Q9966

== ENCOUNTER 2025-01-11 19:22 | Emergency (ER) | payer MEDICARE, SELFPAY ==
--- NOTE | ~2025-01-11 | XR_ITS ---
CHEST RADIOGRAPH CLINICAL HISTORY: possible sepsis . COMPARISON: 08/13/2023 TECHNIQUE: Single portable view of the chest. FINDINGS The cardiomediastinal silhouette is unremarkable. Redemonstration of diffuse bilateral nodules. The remainder of the lungs are clear. IMPRESSION: Redemonstration of diffuse nodularity, without focal infiltrate or effusion. Reviewed, dictated and finalized at location A.
--- NOTE | ~2025-01-11 | CT_ITS ---
CLINICAL INDICATION: Bilateral flank pain with UTI COMPARISON: 10/11/2023. TECHNIQUE: Multiple contiguous axial images of the abdomen and pelvis were performed without the admi nistration of intravenous contrast The dose-length product (DLP) was 1028.93 mGy-cm. Automated exposure control and iterative reconstruction technique were employed. FINDINGS/OBSERVATIONS: Visualized lower thorax: Redemonstration of multiple bilateral pulmonary nodules, similar in size to previous examination date d 10/11/2023. The heart is of normal size, without pericardial effusion. Small hiatal hernia is present. Liver: The liver demonstrates homogeneous attenuation and is borderline enlarged measuring 19 cm in longitud inal dimension. Gallbladder and biliary system: The gallbladder is only minimally distended, and contains multiple calcified and noncalcified stones, unchanged from prior. Pancreas: Limited evaluation of the pancreas secondary to the lack of intravenous contrast. Spleen: The spleen demonstrates homogeneous attenuation and is not enlarged. Kidneys: Redemonstration of bilateral nonobstructing renal calculi, unchanged from prior. Exophytic f rom the interpolar region of the left kidney is an 18 mm focus of fluid attenuation, unchanged from p rior, statistically a cyst. The remainder of the bilateral kidneys are otherwise unremarkable, without hydronephrosis. Adrenal glands: Unremarkable. Gastrointestinal tract: Colonic diverticulosis without surrounding inflammatory change. Fecal stasis within the colon. Appendix: The air-filled appendix is of normal caliber (axial series, images 89 through 112) Vasculature: Unremarkable. Lymph nodes: No pathologically enlarged or morphologically suspicious lymph nodes within the retroperitoneum or at the root of the mesentery. Pelvic structures: The bladder is decompressed, limiting its evaluation. The uterus is either atrophic or surgically absent. Body wall and musculoskeletal: Large fat and bowel containing nonobstructing umbilical hernia, unchanged from prior. Age-appropriate degenerative disease within the lower thoracic and lumbosacral spines. Heterogeneous appearance of the bone marrow within the thoracolumbar spine, for which metastatic dise ase is suspected. IMPRESSION: Innumerable nonobstructing bilateral renal calculi. No hydronephrosis. Findings consistent with metastatic disease within the lower chest and lumbar spine, unchanged from p rior. Reviewed, dictated and finalized at location A. IMPRESSION: Innumerable nonobstructing bilateral renal calculi. No hydronephrosis. Findings consistent with metastatic disease within the lower chest and lumbar s pine, unchanged from prior.
--- OUTSIDE RECORDS SUMMARY | 2025-01-11 19:25 | XMS_ITS | Referral Summary ---
Author Organization [facility] Medical Office Building A Address [address] [place] [address] Care Team Providers Care Fundraising Director Name Role Phone Daren Zamarripa MD Primary Care Provider [phone] Encounters Date Type Department Care Team Description 01/11/2025 7:15 PM CDT Hospital Encounter [address] [address] Frequency of urination 01/11/2025 6:00 PM CDT Office Visit [facility] at [address] [address] Hawa Chino NP Frequency of urination (Primary Dx) 01/09/2025 Telephone [facility] Diabetes Endocrine Care at [address] [place] [phone] Viridiana Faustin NP 10/15/2024 Telephone [facility] Diabetes Endocrine [facility] at [address] [place] [phone] Viridiana Faustin, PRODUCTION BROACHING MACHINE OPERATOR from Last 3 Months Allergies Active Allergy Reactions Criticality Noted Date Comments Codeine Medications ALPRAZolam (XANAX) 0.5 mg tablet 1 Active clotrimazole-bet amethasone (LOTRISONE) cream 1 Active hydroCHLOROthiaz carlie (HYDRODIURIL) 25 mg tablet 1 Active losartan (COZAAR) 50 mg tablet 1 Active potassium citrate ER (UROCIT-K) 10 mEq (1,080 mg) CR tablet 1 Active pen needle, diabetic (BD Ultra-Fine Connie Pen Needle) 32 gauge x needleIndication s:Type 2 diabetes mellitus with hyperglycemia, without long-term current use of insulin (HCC) Use as directed 100 each 5 1 Active sertraline (ZOLOFT) 50 mg tablet Take 1 tablet (50 mg total) by mouth daily 3 Active blood glucose diagnostic (glucose blood) stripIndications :Type 2 diabetes mellitus with hyperglycemia, without long-term current use of insulin ([facility]) Check blood sugar 3x times a day or as directed. E11.65 300 each 3 3 Active lancets miscIndications: Type 2 diabetes mellitus with hyperglycemia, without long-term current use of insulin ([facility]) 1 each by other route 3 (three) times a day before meals E11.65 300 each 3 3 Active omeprazole (PriLOSEC) 20 mg capsule Take by mouth daily 3 Active tamsulosin (FLOMAX) 0.4 mg extended release capsule TAKE 1 CAPSULE BY MOUTH EVERY DAY NEEDED FOR KIDNEY STONES 3 Active blood-glucose meter kitIndications:T ype 2 diabetes mellitus with hyperglycemia, without long-term current use of insulin ([facility]) Use 2 times daily for monitoring of blood sugar for diabetes. E11.65 1 kit 4 Active HYDROcodone-acet aminophen (NORCO) 5-325 mg per tablet Take by mouth every 6 (six) hours as needed 4 Active Janumet XR 100-1,000 mg tablet, ER multiphase 24 hrIndications:Ty pe 2 diabetes mellitus with hyperglycemia, without long-term current use of insulin ([facility]) TAKE ONE TABLET BY MOUTH EVERY DAY 90 tablet 3 4 Active clobetasoL (TEMOVATE) 0.05 % cream APPLY TO THE AFFECTED AREA TWICE DAILY NEEDED FOR RASH FOR UP TO 2 WEEKS AT A TIME 4 Active pravastatin (PRAVACHOL) 40 mg tablet Take 1 tablet (40 mg total) by mouth nightly E11.65 90 tablet 4 4 Active insulin degludec (TRESIBA) 100 unit/mL (3 mL) pen for injectionIndicat ions:type 2 diabetes mellitus Inject 0.36 mL (36 Units total) under the skin daily e11.65 45 mL 4 5 Active insulin aspart niacinamide (FIASP) 100 unit/mL (3 mL) pen for injectionIndicat ions:type 2 diabetes mellitus Inject 9 Units under the skin 3 (three) times a day before meals E11.65 15 mL 3 5 Active Active Problems Problem Noted Date Diagnosed Date Dexcom 7 continuous glucose monitoring device Assessment & Plan (09/03/2024 1:52 PM EXECUTIVE OFFICER): Continuous glucose monitor (cgm) applied from 08/21/2024 to 09/03/2024 This device was placed for monitor and treatment of blood sugar. Interpretation of data- average glucose 181, 51% time in range. 49% hyperglycemia. 0 hypoglycemia Assessment & Plan (05/21/2024 12:41 PM EXECUTIVE OFFICER): Continuous glucose monitor (cgm) applied from 05/08 to 05/21/2024 This device was placed for monitor and treatment of blood sugar. Interpretation of data- average glucose 268, 11% time in range. 89% hyperglycemia. 0 hypoglycemia Hypertension associated with type 2 diabetes kennedy litus 11/01/2023 Assessment & Plan (05/21/2024 12:38 PM EXECUTIVE OFFICER): This is a chronic condition which is at goal. Goal is less than 140/90 Continue losartan, hydrochlorothiazide Encouraged to monitor weight and B/P at home. Assessment & Plan (11/01/2023 4:50 PM CDT): This is a chronic condition which is at goal. Goal is less than 140/90 Personally reviewed labs. Continue hydrochlorothiazide, losartan Encouraged to monitor weight and B/P at home Encouraged to take medications as prescribed. Class 3 severe obesity due t o excess calories with serious comorbidity and body mass index (BMI) of 40.0 to 44.9 in adult 11/10/2022 Assessment & Plan (05/21/2024 12:39 PM EXECUTIVE OFFICER): This is a chronic condition which continues to worsen 11 lbs. Weight gain since last office visit Encouraged healthy eating which includes a low carb diet. Avoiding processed foods, sweets and fried foods. Encouraged 30 minutes of walking at least 5 days per week Discussed that exercise can be broken down into small sessions- for example 2- 15 minutes sessions or 3- 10 minutes sessions. Assessment & Plan (11/01/2023 4:51 PM CDT): This is a chronic condition which continues 8 lb Weight loss since last office visit Encouraged healthy eating which includes a low carb diet. Avoiding processed foods, sweets and fried foods. Encouraged 30 minutes of walking at least 5 days per week Discussed that exercise can be broken down into small sessions- for example 2- 15 minutes sessions or 3- 10 minutes sessions. Assessment & Plan (06/28/2023 11:38 AM EXECUTIVE OFFICER): This is a chronic condition which is improving 5 lb weight loss since last office visit Has stopped eating bread and not keeping ice cream in the house Encouraged additional weight loss and exercise Assessment & Plan (06/28/2023 11:37 AM EXECUTIVE OFFICER): >>ASSESSMENT AND PLAN FOR BODY MASS INDEX 40.0-44.9, ADULT ([facility]) ([facility]) WRITTEN ON 11/10/2022 4:12 PM BY VIRIDIANA FAUSTIN NP This is a chronic condition. She has lost 52 lb over the last 2 years She declined the use of GLP 1 as she is afraid of side effects Assessment & Plan (06/28/2023 11:37 AM EXECUTIVE OFFICER): >>ASSESSMENT AND PLAN FOR BODY MASS INDEX 40.0-44.9, ADULT ([facility]) ([facility]) WRITTEN ON 02/13/2023 12:26 PM BY VIRIDIANA FAUSTIN NP This is a chronic condition which is worsening 10 lb weight gain since last office visit Discussed the importance eating healthy Ambulatory referral to diabetes education/nutritional counseling Encouraged increased activity Type 2 diabetes mellitus wit hout complication, with long-term current use of insulin 11/05/2020 Assessment & Plan (05/21/2024 12:38 PM EXECUTIVE OFFICER): This is a chronic condition which is Elevated, not at goal, worsening, uncontrolled . Goal is less than 7%. Personally reviewed most recent A1c - Lab Results Component Value Date HGBA1C 8.6 05/21/2024 Personally reviewed POC blood sugar- elevated, worsening, not at goal of 80-180 Lab Results Component Value Date POCGLU 338 05/21/2024 Medication- increase Tresiba to 22 units daily, increase fast and 9 units 3 times a day prior to meals, continue Janamet 100/1000 daily Monitor blood sugar continuously with Dexcom cgm. Encouraged annual eye exam. Monofilament foot exam completed. Protective senses intact eGFR- greater than 60 Kidney function-normal Urine microalbumin/creatinine ratio - at goal. Goal is <30. Continue losartan, hydrochlorothiazide Assessment & Plan (11/01/2023 4:51 PM CDT): This is a chronic condition which is close to goal . Goal is less than 7%. Personally reviewed most recent A1c - Lab Results Component Value Date HGBA1C 7.1 11/01/2023 Personally reviewed POC blood sugar- at goal of 80-180 Lab Results Component Value Date POCGLU 160 11/01/2023 Medication- continue Tresiba 34 units daily, fiasp 8 units 3times a day prior to meals, continue sitagliptin/metformin 100/1000mg po daily Does not want to use GLP 1 if she is afraid of the side effects. Monitor blood sugar continuously with cgm. Initial Dexcom 7 sensor placed today. Return demonstrated the correct way to use the sensor. Verbalized understanding of placing the sensor. Encouraged annual eye exam. last dilated eye exam was completed with Dr. Coy Monofilament foot exam completed. Protective senses intact Personally reviewed CMP eGFR- greater than 60 Kidney function-normal Urine microalbumin/creatinine ratio - normal. Goal is <30 Continue losartan, hydrochlorothiazide Assessment & Plan (06/28/2023 11:35 AM EXECUTIVE OFFICER): This is a chronic condition which is inadequately controlled, worsening not at goal of less than 7%. Personally reviewed most recent A1c - Lab Results Component Value Date HGBA1C 8.0 06/28/2023 Personally reviewed POC blood sugar- not at goal 80-180 Lab Results Component Value Date POCGLU 253 06/28/2023 Medication- continue Tresiba 18 units daily, increase fiasp 8 units 3times a day prior to meals, continue sitagliptin/metformin 100/1000mg po daily Does not want to use GLP 1 if she is afraid of the side effects. Monitor blood sugar 2 times a day. Encouraged annual eye exam. Monofilament foot exam completed. protective senses intact Personally reviewed CMP eGFR- >60 Kidney function- normal Urine microalbumin/creatinine ratio - at goal <30 treated with losartan, hydrochlorothiazide B/P today- at goal of <140/90. continue losartan, hydrochlorothiazide Personally reviewed lipid panel. Not at Goal of less than 70. Continue pravastatin Assessment & Plan (02/13/2023 12:25 PM CDT): This is a chronic condition which is out of control, worsening not at goal of less than 7% with 10 lb weight gain. Personally reviewed most recent A1c - 12/29/22 SCRIBED Hemoglobin A1c 4.6 - 5.7 % 10.0 ! (E) Lab Results Component Value Date HGBA1C 9.5 11/10/2022 Personally reviewed POC blood sugar- not at goal 80-180 Lab Results Component Value Date POCGLU 513 02/13/2023 Medication- Increase Tresiba 24 units daily, increase fiasp 8 units daily 3 times a day 15 minutes prior to meals continue sitagliptin/metformin 100/1000mg po daily. Monitor blood sugar 3 times a day. Has Dexcom 7 sensor but is afraid to use it as she is afraid it will hurt her Encouraged annual eye exam. Monofilament foot exam completed. protective senses intact Personally reviewed CMP eGFR- >60 Kidney function- normal Urine microalbumin/creatinine ratio - needed, ordered multiple times has not obtain at goal <30 treated with losartan and hydrochlorothiazide B/P today- at goal of <140/90. continue losartan, hydrochlorothiazide Personally reviewed lipid panel. Not at Goal of less than 70. Continue pravastatin Assessment & Plan (11/10/2022 4:14 PM CDT): This is a chronic condition which is inadequately controlled worsening not at goal of less than 7%. Personally reviewed most recent A1c - Lab Results Component Value Date HGBA1C 9.5 11/10/2022 Personally reviewed POC blood sugar- not at goal 80-180 Lab Results Component Value Date POCGLU 235 11/10/2022 Medication- decrease Tresiba 18 units daily, start fiasp 6 units 3times a day prior to meals, continue sitagliptin/metformin 100/1000mg po daily Discussed using GLP 1, she declined as she is afraid of anything with side effect. Monitor blood sugar 3 times a day. Continuously with dexcom 7 sensor. Encouraged annual eye exam. Monofilament foot exam completed. protective senses intact Urine microalbumin/creatinine ratio - ordered goal <30 treated with losartan hydrochlorothiazide CMP ordered Will obtain at [facility] Encouraged labs to be obtain B/P today- at goal of <140/90. continue Losartan, hydrochlorothiazide Personally reviewed lipid panel. Not at Goal of less than 70. Continue pravastatin Assessment & Plan (11/05/2020 5:27 PM CDT): This is a chronic condition which is uncontrolled with hyperglycemia, not at goal per blood sugars and last A1c Personally reviewed A1c- 8.4 (04/28/20) goal less than 7% Personally reviewed blood sugar 315 goal 80-180 Medication- increase Janumet 100/1000mg daily, add Metformin xl 500mg daily, continue glyburide. Will change to a different sulfonylurea after the current prescription is finished since causes hypoglycemia. Monitor blood sugar 2 times a day. Encouraged annual eye exam. States can not afford it. Monofilament foot exam completed, diminished protective senses. Treated with Gabapentin Urine microalbumin/creatinine ratio - (4.29.21) <30. currently losartan and HCTZ , at goal <30 Personally reviewed labs: (04/28) BUN- 13 , creatinine- 0.7 GFR- >60 Kidney function- normal, abnormal B/P today- 128/78 , currently on losartan/HCTZ. At goal blood pressure is <140/90 and as close to 120/80 as possible. Personally reviewed LDL - 117, not at goal of less than 70. Added pravastatin 10mg at bedtime. No history of macrovascular disease - CVA, [place]. Hyperlipidemia associated with type 2 diabetes valeria hansen 11/05/2020 Assessment & Plan (05/21/2024 12:39 PM EXECUTIVE OFFICER): This is a chronic condition which is elevated, not at goal . Goal is LDL less than 70 Continue pravastatin Encouraged to eat healthy, include fresh fruits and vegetables daily and avoid eating fried foods more than once per week. Assessment & Plan (11/01/2023 4:49 PM CDT): This is a chronic condition which is not at goal . Goal is LDL less than 70 Continue pravastatin Encouraged to eat healthy, include fresh fruits and vegetables daily and avoid eating fried foods more than once per week. Encouraged to take medications as prescribed. Assessment & Plan (06/28/2023 11:35 AM EXECUTIVE OFFICER): This is a chronic condition which is not at goal of LDL less than 70 Continue pravastatin Encouraged to eat healthy, include fresh fruits and vegetables daily and avoid eating fried foods more than once per week. Encouraged to take medications as prescribed. Assessment & Plan (02/13/2023 12:26 PM CDT): This is a chronic condition which is not at goal of LDL less than 70 Continue pravastatin Encouraged to eat healthy, include fresh fruits and vegetables daily and avoid eating fried foods more than once per week. Encouraged to take medications as prescribed. Assessment & Plan (11/10/2022 4:12 PM CDT): This is a chronic condition Lipid panel ordered Continue pravastatin Encouraged to eat healthy, include fresh fruits and vegetables daily and avoid eating fried foods more than once per week. Encouraged to take medications as prescribed. Assessment & Plan (11/05/2020 5:28 PM CDT): This is a chronic condition which is not at goal. Personally reviewed POC lipid panel, LDL - 117, not at goal of less than 70. Added pravastatin 10mg at bedtime. Personally reviewed lipid panel. Encouraged to eat healthy, include fresh fruits and vegetables daily and avoid eating fried foods more than once per week. Please take medications as prescribed. Social History Tobacco Use Types Packs/Day Years Used Date Smoking Tobacco: Former Tobacco Cessation:Counseling Given: Not Answered Comments Unknown Sex and Gender Information Value Date Recorded Sex Assigned at Not on file Legal Sex Female 8:21 AM EXECUTIVE OFFICER Gender Identity Not on file Sexual Orientation Not on file Last Filed Vital Signs Vital Sign Reading Time Taken Comments Blood Pressure 136/84 01/11/2025 5:24 PM CDT Pulse 100 01/11/2025 5:24 PM CDT Temperature 37.3 C (99.2 F) 01/11/2025 5:24 PM CDT Respiratory Rate 22 01/11/2025 5:24 PM CDT Oxygen Saturation 98% 01/11/2025 5:24 PM CDT Inhaled Oxygen Concentration - - Weight 110.9 kg (244 lb 9.6 oz) 09/03/2024 1:10 PM EXECUTIVE OFFICER Height 162.6 cm (5' 4) 09/03/2024 1:10 PM EXECUTIVE OFFICER Body Mass Index 41.99 09/03/2024 1:10 PM EXECUTIVE OFFICER Plan of Treatment Not on file Procedures Procedure Name Priority Date/Time Associated Diagnosis Comments POCT URINALYSIS DIPSTICK Routine 01/11/2025 5:34 PM CDT Frequency of urination POCT HEMOGLOBIN A1C Routine 09/03/2024 1 :16 PM EXECUTIVE OFFICER Type 2 diabetes mellitus without complication, with long-term current use of insulin (HCC) EGFR Routine 05/21/2024 11:51 AM EXECUTIVE OFFICER Type 2 diabetes mellitus with hyperglycemia, without long-term current use of insulin (HCC) LIPID PANEL Routine 05/21/2024 11:51 AM EXECUTIVE OFFICER Type 2 diabetes mellitus with hyperglycemia, without long-term current use of insulin (HCC) ALBUMIN CREATININE RATIO, URINE Routine 05/21/2024 11:51 AM EXECUTIVE OFFICER Type 2 diabetes mellitus with hyperglycemia, without long-term current use of insulin (HCC) DIABETIC EYE EXAM Routine 03/16/2023 from Last 3 Months or Most Recently Relevant to Health Maintenance Results * (ABNORMAL) POCT urinalysis dipstick (01/11/2025 5:34 PM CDT) Color, Urine, POC Yellow Clarity, ur, POC Clear Clear Glucose, ur, POC Negative Negative Bilirubin, ur, POC Negative Negative Ketones, ur, POC Trace(A) Negative Specific [place], POC 1.025 1.003 - 1.030 Blood, ur, POC Negative Negative pH, ur, POC 6.0 5.0 - 8.0 Protein, ur, POC 100.(A) Negative Urobilinogen, urine, POC 1.0 0.2 - 1.0 mg/dL Nitrite, ur, POC Positive(A) Negative Leukocytes, ur, POC Small(A) Negative Lot Number [id number] Urine 01/11/2025 5:34 PM CDT Hawa Chino PRODUCTION BROACHING MACHINE OPERATOR POINT OF CARE TEST ORDERABLES Final Result * POCT hemoglobin A1c (09/03/2024 1:16 PM EXECUTIVE OFFICER) Pathologist [facility] Hemoglobin A1C, POC 6.8 4.0 - 5.6 % Blood 09/03/2024 1:16 PM EXECUTIVE OFFICER Viridiana Faustin PRODUCTION BROACHING MACHINE OPERATOR POINT OF CARE TEST ORDERABLES F inal Result * eGFR (05/21/2024 11:51 AM EXECUTIVE OFFICER) Pathologist [facility] eGFR >90 >=60 mL/min/1. 73 m2 Comment: Interpretive Data Reference Interval Normal >/= 90 mL/min/1.73m2 Mildly decreased* 60 - 89 mL/min/1.73m2 Mildly to moderately decreased 45 - 59 mL/min/1.73m2 Moderately to severely decreased 30 - 44 mL/min/1.73m2 Severely decreased 15 - 29 mL/min/1.73m2 Kidney Failure < 15 mL/min/1.73m2 *Relative to young adult level Estimated glomerular filtration rate is determined by the 2020 CKD-EPI equation recommended by the National Kidney Foundation (A Unifying Approach to GFR Estimation: Recommendations of the NKF-ASK Task Force on Reassessing the Inclusion of Race in Diagnosing Kidney Disease, JASN 2020). The CKD-EPI equation should not be used for patients with unstable renal function and has not been validated in children and those over 70. Current interpretive data was last reviewed 2021. Blood 05/21/2024 11:5 1 AM EXECUTIVE OFFICER 05/21/2024 8:13 PM EXECUTIVE OFFICER Viridiana Faustin PRODUCTION BROACHING MACHINE OPERATOR LAB BLOOD ORDERABLES Final Resu lt Performing Organization Address [facility] de Phone Number VELIA MARIA [address] [address] [place] [address] * Albumin Creatinine Ratio, Urine (05/21/2024 11:51 AM EXECUTIVE OFFICER) Albumin Ur <12.0 mg/L Comment: Interpretive Data No reference range established. Current interpretive data was last revised 2018. Creatinine Ur 26.3 mg/dL VELIA Comment: Interpretive Data No reference range established. Current interpretive data was last revised 2018. Albumin Creatinine Ratio, Ur See Comment 1 - 29 VELIA Comment:Unable to calculate Urine 05/21/2024 11:5 1 AM EXECUTIVE OFFICER 05/21/2024 8:11 PM EXECUTIVE OFFICER Viridiana Faustin PRODUCTION BROACHING MACHINE OPERATOR LAB URINE ORDERABLES Final Resu lt Performing Organization Address [facility] de Phone Number VELIA MARIA [address] [address] [place] [address] * (ABNORMAL) Lipid panel (05/21/2024 11:51 AM EXECUTIVE OFFICER) Cholesterol 225(H) 30 - 199 mg/dL Comment: Interpretive Data Ages < or = 19 years Acceptable: <170 mg/dL Borderline high: 170-199 mg/dL High: >or= 200 mg/dL Ages > or = 20 years Desirable: <200 mg/dL Borderline high: 200-239 mg/dL High: >or= 240 mg/dL Literature References: 1. Expert Panel on Integrated Guidelines for Cardiovascular Health and Risk Reduction in Children and Adolescents. Pediatrics 2011;128:S213 2. NCEP Expert Panel. Circulation 2004;110:227 Current Interpretive Data was last revised on 2018. Triglycerides 148 <=149 mg/dL VELIA Comment: Interpretive Data Ages < or = 9 years Acceptable: <75 mg/dL Borderline high: 75-99 mg/dL High: >or= 100 mg/dL Ages 10 to 20 years Acceptable: <90 mg/dL Borderline high: 90-129 mg/dL High: >or= 130 mg/dL Ages > or = 20 years Desirable: <150 mg/dL Borderline high: 150-199 mg/dL High: 200-499 mg/dL Very high: >or= 499 mg/dL Literature References: 1. Expert Panel on Integrated Guidelines for Cardiovascular Health and Risk Reduction in Children and Adolescents. Pediatrics 2011;128:S213 2. NCEP Expert Panel. Circulation 2004;110:227 Current Interpretive Data was last revised on 2018. HDL 62 >=40 mg/dL VELIA Comment: Interpretive Data Ages < or = 19 years Acceptable: >45 mg/dL Borderline low: 40-45 mg/dL Low: <40 mg/dL Ages > or = 20 years Desirable: >or= 60 mg/dL Low: <40 mg/dL Literature References: 1. Expert Panel on Integrated Guidelines for Cardiovascular Health and Risk Reduction in Children and Adolescents. Pediatrics 2011;128:S213 2. NCEP Expert Panel. Circulation 2004;110:227 Current Interpretive Data was last revised on 2018. LDL, calculated 137(H) <=129 mg/dL VELIA Comment: Interpretive Data Ages < or = 19 years Acceptable: <110 mg/dL Borderline high: 110-129 mg/dL High: >or= 130 mg/dL Ages > or = 20 years Optimal: <100 mg/dL Near optimal: 100-129 mg/dL Borderline high: 130-159 mg/dL High: >160 mg/dL Calculated using the Jack LDL-C estimating equation. This equation was implemented on 2024. Prior to this date LDL-C was estimated using the Friedewald equation. Literature References: 1. Expert Panel on Integrated Guidelines for Cardiovascular Health and Risk Reduction in Children and Adolescents. Pediatrics 2011;128:S213 2. NCEP Expert Panel. Circulation 2004;110:227 3. Jack Hilton et al. NORMAN Cardiol. 2020 November 07;5(5):540-548. doi: [email or web address] Current Interpretive Data was last revised on 2024. Non-HDL Cholesterol 163 mg/dL VELIA MARIA Comment: Interpretive Data Ages < or = 19 years Acceptable: <120 mg/dL Borderline high: 120-144 mg/dL High: >145 mg/dL Ages > or = 20 years When triglycerides are >200 mg/dL, Non-HDL cholesterol is a secondary target of therapy with treatment goals that are 30 mg/dL greater than the LDL cholesterol target. Literature References: 1. Expert Panel on Integrated Guidelines for Cardiovascular Health and Risk Reduction in Children and Adolescents. Pediatrics 2011;128:S213 2. NCEP Expert Panel. Circulation 2004;110:227 Current Interpretive Data was last revised on 2018. Chol/HDL ratio 4 VELIA Blood 05/21/2024 11:5 1 AM EXECUTIVE OFFICER 05/21/2024 8:11 PM EXECUTIVE OFFICER Narrative VELIA - 05/21/2024 9:30 PM EXECUTIVE OFFICER These lab test should be done fasting. This means do not eat or drink for at least 12 hours prior to getting your blood drawn. Viridiana Faustin NP LAB BLOOD ORDERABLES Final Resu lt VELIA [id number] [place] [address] * Diabetic Eye Exam (03/16/2023) Historical Provider HEALTH MAINTENANCE Final Result from Last 3 Months or Most Recently Relevant to Health Maintenance Insurance [employer] MEDICARE GOLD AET[employer] MEDICARE GOLD Care Teams Fundraising Director Relationship Specialty Start Date End Date Daren Zamarripa MD [address] [address] PCP - General Family Medicine 03/28/22
--- OUTSIDE RECORDS SUMMARY | 2025-01-11 19:25 | XMS_ITS | Clinical Summary ---
Author Organization [facility] Address [address] [place] [address] Care Team Providers Care Player Services Representative Name Role Phone Unavailable Primary Care Provider Unavailabl e Source Comments [facility] [employer],non-owned Affiliates and Associated Physician Practices is amultiple site organization consisting of ambulatory clinics and hospital sitesin [place], [place], [place] and [place]. This disclosure is being madepursuant to the Care Everywhere program and may not contain all information available regarding this patient. 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 Gender Identity Not on file Sexual Orientation Not on file Plan of Treatment Health Maintenance Due Date Last Done Comments BONE DENSITY TESTING 1957 COLOGUARD (AGES 45-75) - COL ON CA SCREENING 1957 COLON MONITORING 1957 COLONOSCOPY - COLON CA SCREENING 1957 CT COLONOGRAPHY - COLON CA SCREENING 1957 Colorectal Cancer Screening 1957 FIT - COLON CA SCREENING 1957 FLEX SIG - COLON CA SCREENING 1957 LIPID TESTING 1957 MAMMOGRAM 1957 HEPATITIS C SCREENING 11/28/1975 DTAP/TDAP/TD VACCINES (1 - Tdap) 1976 PNEUMOCOCCAL VACCINE 50+ (1 of 1 - PCV) 12/03/2007 ZOSTER VACCINE (1 of 2) 12/03/2007 COVID-19 VACCINE (1 - 2023-2 5 season) 2024 DEPRESSION SCREENING 07/10/2024 MEDICARE AWV CALENDAR YEAR 2024 INFLUENZA VACCINE (Season Ended) 2025 Respiratory Syncytial Virus (RSV) Vaccine Pt: or over 60 yrs (1 - 1-dose 75+ series) 2032 HEPATITIS B VACCINE Aged Out No longe r eligible based on patient's age to complete this topic HIB VACCINE Aged Out No longer eligi ble based on patient's age to complete this topic HPV VACCINE Aged Out No longer eligi ble based on patient's age to complete this topic MENINGOCOCCAL (Group B) VACC INE SHARED DECISION-MAKING Aged Out No longer eligibl e based on patient's age to complete this topic MENINGOCOCCAL GROUPS A/C/Y/W VACCINE Aged Out No longer eligible b ased on patient's age to complete this topic Insurance * Guarantor: KASSIE FLORES Account Type Relation to Patient Date of Phone Billing Address Personal/Family [address] [place], [place] [phone] [employer] MED[employer]ARE ADV SELF PAY NO INSURANCE Member Subscriber Plan / Payer (Ef fective for All Dates) Name:Kassie Flores Member ID:Not on file Relation to Subscriber:Not on file Name:KASSIE FLORES Subscriber ID:Not on file Address: [address] [place], [place] [phone] Payer ID:Not on file Group ID:Not on file Type:Self Pay Address: [place], [place] * Guarantor: KASSIE FLORES Account Type Relation to Patient Date of Phone Billing Address Personal/Family [address] [place], [place] [phone] [employer] MEDICARE ADV SELF PAY NO INSURANCE Member Subscriber Plan / Payer (Ef fective for All Dates) Name:Kassie Flores Member ID:Not on file Relation to Subscriber:Not on file Name:KASSIE FLORES Subscriber ID:Not on file Address: [address] [place] [phone] Payer ID:Not on file Group ID:Not on file Type:Self Pay Address: [place], [place] * Guarantor: KASSIE FLORES Account Type Relation to Patient Date of Phone Billing Address Personal/Family [address] [place] [phone] [employer] MEDICARE ADV SELF PAY NO INSURANCE Member Subscriber Plan / Payer (Ef fective for All Dates) Name:Kassie Flores Member ID:Not on file Relation to Subscriber:Not on file Name:KASSIE FLORES Subscriber ID:Not on file Address: [address] [place] [phone] Payer ID:Not on file Group ID:Not on file Type:Self Pay Address: [place], [place]
--- OUTSIDE RECORDS SUMMARY | 2025-01-11 19:25 | XMS_ITS | Encounter Summary ---
Author Organization [facility] Healthcare Address [address] [place] [address] Care Team Providers Care World Designer Name Role Phone Daren Zamarripa MD Primary Care Provider [phone] Reason for Visit * Reason Comments Urinary Frequency Patient has history of kidney stones, back aches, Head hurts, fever. Burning with urination, Nausea. 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 Gender Identity Not on file Sexual Orientation Not on file documented as of this encounter Last Filed Vital Signs Vital Sign Reading Time Taken Comments Blood Pressure 136/84 01/11/2025 5:24 PM CDT Pulse 100 01/11/2025 5:24 PM CDT Temperature 37.3 C (99.2 F) 01/11/2025 5:24 PM CDT Respiratory Rate 22 01/11/2025 5:24 PM CDT Oxygen Saturation 98% 01/11/2025 5:24 PM CDT Inhaled Oxygen Concentration - - Weight - - Height - - Body Mass Index - - documented in this encounter Plan of Treatment Scheduled Orders Name Type Priority Associated Diagnoses Orde r Schedule Urine culture Urine, clean voided Microbiology Routine Frequency of urination Expected: 01/11/2025, Expires: 01/11/2026 documented as of this encounter Procedures Procedure Name Priority Date/Time Associated Diagnosis Comments POCT URINALYSIS DIPSTICK Routine 01/11/2025 5:34 PM CDT Frequency of urination documented in this encounter Results * (ABNORMAL) POCT urinalysis dipstick (01/11/2025 5:34 PM CDT) Color, Urine, POC Yellow Clarity, ur, POC Clear Clear Glucose, ur, POC Negative Negative Bilirubin, ur, POC Negative Negative Ketones, ur, POC Trace(A) Negative Specific [place], POC 1.025 1.003 - 1.030 Blood, ur, POC Negative Negative pH, ur, POC 6.0 5.0 - 8.0 Protein, ur, POC 100.(A) Negative Urobilinogen, urine, POC 1.0 0.2 - 1.0 mg/dL Nitrite, ur, POC Positive(A) Negative Leukocytes, ur, POC Small(A) Negative Lot Number [id number] Urine 01/11/2025 5:34 PM CDT Hawa Chino NP POINT OF CARE TEST ORDERABLES Final Result documented in this encounter Visit Diagnoses Diagnosis Frequency of urination- Primary Urinary frequency documented in this encounter Care Teams World Designer Relationship Specialty Start Date End Date Daren Zamarripa MD [address] [address] PCP - General Family Medicine 03/28/22 documented as of this encounter
--- OUTSIDE RECORDS SUMMARY | 2025-01-11 19:25 | XMS_ITS | Clinical Summary ---
Author Organization [facility] Address [address] [place] [address] Care Team Providers Care Bearing Inspector Name Role Phone Daren Zamarripa MD Primary Care Provider [phone] Allergies Active Allergy Reactions Criticality Noted Date Comments Codeine Medications ALPRAZolam (XANAX) 0.5 mg tablet 1 Active clotrimazole-bet amethasone (LOTRISONE) cream 1 Active hydroCHLOROthiaz carlie (HYDRODIURIL) 25 mg tablet 1 Active losartan (COZAAR) 50 mg tablet 1 Active potassium citrate ER (UROCIT-K) 10 mEq (1,080 mg) CR tablet 1 Active pen needle, diabetic (BD Ultra-Fine Connie Pen Needle) 32 gauge x 5/32 needleIndication s:Type 2 diabetes mellitus with hyperglycemia, without long-term current use of insulin (HCC) Use as directed 100 each 5 1 Active sertraline (ZOLOFT) 50 mg tablet Take 1 tablet (50 mg total) by mouth daily 3 Active blood glucose diagnostic (glucose blood) stripIndications :Type 2 diabetes mellitus with hyperglycemia, without long-term current use of insulin (HCC) Check blood sugar 3x times a day or as directed. E11.65 300 each 3 3 Active lancets miscIndications: Type 2 diabetes mellitus with hyperglycemia, without long-term current use of insulin (HCC) 1 each by other route 3 (three) [...] long-term current use of insulin (HCC) Use 2 times daily for monitoring of blood sugar for diabetes. E11.65 1 kit 4 Active HYDROcodone-acet aminophen (NORCO) 5-325 mg per tablet Take by mouth every 6 (six) hours as needed 4 Active Janumet XR 100-1,000 mg tablet, ER multiphase 24 hrIndications:Ty pe 2 diabetes mellitus with hyperglycemia, without long-term current use of insulin (HCC) TAKE ONE TABLET BY MOUTH EVERY DAY [...] device Assessment & Plan (09/03/2024 1:52 PM BULK SEALER OPERATOR): Continuous glucose monitor (cgm) applied from 08/21/2024 to 09/03/2024 This device was placed for monitor and treatment of blood sugar. Interpretation of data- average glucose 181, 51% time in range. 49% hyperglycemia. 0 hypoglycemia Assessment & Plan (05/21/2024 12:41 PM BULK SEALER OPERATOR): Continuous glucose monitor (cgm) applied from 05/08 to 05/21/2024 This device was placed for monitor and treatment of blood sugar. Interpretation of data- average glucose 268, 11% time in range. 89% hyperglycemia. 0 hypoglycemia Hypertension associated with type 2 diabetes kennedy litus 11/01/2023 Assessment & Plan (05/21/2024 12:38 PM BULK SEALER OPERATOR): This is a chronic condition which is [...] 11/10/2022 Assessment & Plan (05/21/2024 12:39 PM BULK SEALER OPERATOR): This is a chronic condition which continues [...] sessions. Assessment & Plan (06/28/2023 11:38 AM BULK SEALER OPERATOR): This is a chronic condition which is improving 5 lb weight loss since last office visit Has stopped eating bread and not keeping ice cream in the house Encouraged additional weight loss and exercise Assessment & Plan (06/28/2023 11:37 AM BULK SEALER OPERATOR): >>ASSESSMENT AND PLAN FOR BODY MASS INDEX 40.0-44.9, ADULT ([facility] ([facility]) WRITTEN ON 11/10/2022 4:12 PM BY VIRIDIANA FAUSTIN NP This is a chronic condition. She has lost 52 lb over the last 2 years She declined the use of GLP 1 as she is afraid of side effects Assessment & Plan (06/28/2023 11:37 AM BULK SEALER OPERATOR): >>ASSESSMENT AND PLAN FOR BODY MASS INDEX 40.0-44.9, ADULT ([facility]) ([facility]) WRITTEN ON 02/13/2023 12:26 PM BY VIRIDIANA FAUSTIN, RIANA This is a chronic condition which is worsening 10 lb weight gain since last office visit Discussed the importance eating healthy Ambulatory referral to diabetes education/nutritional counseling Encouraged increased activity Type 2 diabetes mellitus wit hout complication, with long-term current use of insulin 11/05/2020 Assessment & Plan (05/21/2024 12:38 PM BULK SEALER OPERATOR): This is a chronic condition which is [...] hydrochlorothiazide Assessment & Plan (06/28/2023 11:35 AM BULK SEALER OPERATOR): This is a chronic condition which is [...] No history of macrovascular disease - CVA, DE. Hyperlipidemia associated with type 2 diabetes valeria hansen 11/05/2020 Assessment & Plan (05/21/2024 12:39 PM BULK SEALER OPERATOR): This is a chronic condition which is [...] prescribed. Assessment & Plan (06/28/2023 11:35 AM BULK SEALER OPERATOR): This is a chronic condition which is [...] per week. Please take medications as prescribed. Encounters Date Type Department Care Team Description 01/11/2025 7:15 PM CDT Hospital Encounter [address] [address] Frequency of urination 01/11/2025 6:00 PM CDT Office Visit [facility] Convenient Care at [address] [address] Hawa Chino NP Frequency of urination (Primary Dx) 01/09/2025 Telephone [facility] Diabetes Endocrine Care at [address] [place] [address] Viridiana Faustin NP 10/15/2024 Telephone [facility] Endocrine Care at [address] [place] [address] Viridiana Faustin, ADVERTISEMENT COMPOSITOR from Last 3 Months Medical History Medical History Date Comments Morbid (severe) obesity due to excess calories ( HCC) 11/10/2022 Family History Medical History Relation Name Comments Liver cancer Father Family history of liver cancer - (Added by TW Conv) Relation Name Status Comments Father Social History Tobacco Use Types Packs/Day Years Used Date Smoking Tobacco: Former Tobacco Cessation:Counseling Given: Not Answered Comments Unknown Sex and Gender Information Value Date Recorded Sex Assigned at Not on file Legal Sex Female 8:21 AM BULK SEALER OPERATOR Gender Identity Not on file Sexual Orientation Not on file Obstetrics History Last Filed Vital Signs Vital Sign Reading Time Taken Comments Blood Pressure 136/84 01/11/2025 5:24 PM CDT Pulse 100 01/11/2025 5:24 PM CDT Temperature 37.3 C (99.2 F) 01/11/2025 5:24 PM CDT Respiratory Rate 22 01/11/2025 5:24 PM CDT Oxygen Saturation 98% 01/11/2025 5:24 PM CDT Inhaled Oxygen Concentration - - Weight 110.9 kg (244 lb 9.6 oz) 09/03/2024 1:10 PM BULK SEALER OPERATOR Height 162.6 cm (5' 4) 09/03/2024 1:10 PM BULK SEALER OPERATOR Body Mass Index 41.99 09/03/2024 1:10 PM BULK SEALER OPERATOR Plan of Treatment Health Maintenance Due Date Last Done Comments Breast Cancer Screening-Mammogram 1957 Colon Cancer Screening-Colonoscopy 1957 Depression Screening 1957 Fall Risk Assessment 1957 Hepatitis C Screening 1957 Osteoporosis Screening-Bone Density Scan 1957 DTaP/Tdap/Td Vaccine (1 - Tdap) 1968 Hepatitis B Screening 12/03/1975 Pneumococcal vaccine 65+ (1 of 2 - PCV) 1976 Zoster Vaccine (1 of 2) 12/03/2007 Well Visit 65+ 2022 Dilated Eye Exam 03/16/2024 03/16/2023, 09/23/2021 Hemoglobin A1C 03/03/2025 09/03/2024, 05/10, 11/01/2023, Additional history exists Influenza Vaccine (#1) 2025 Albumin Creatinine Ratio, Urine 05/21/2025 , 03/08/2023 Foot Exam 05/21/2025 05/21/2024, 10/09, 06/28/2023, Additional history exists Lipid Panel 05/21/2025 05/21/2024, 12/09, 11/05/2020 eGFR 05/21/2025 05/21/2024, 12/09, 12/29/2022 Procedures Procedure Name Priority Date/Time Associated Diagnosis Comments POCT URINALYSIS DIPSTICK Routine 01/11/2025 5:34 PM CDT Frequency of urination POCT HEMOGLOBIN A1C Routine 09/03/2024 1 :16 PM BULK SEALER OPERATOR Type 2 diabetes mellitus without complication, with long-term current use of insulin (HCC) EGFR Routine 05/21/2024 11:51 AM BULK SEALER OPERATOR Type 2 diabetes mellitus with hyperglycemia, without long-term current use of insulin (HCC) LIPID PANEL Routine 05/21/2024 11:51 AM BULK SEALER OPERATOR Type 2 diabetes mellitus with hyperglycemia, without long-term current use of insulin (HCC) ALBUMIN CREATININE RATIO, URINE Routine 05/21/2024 11:51 AM BULK SEALER OPERATOR Type 2 diabetes mellitus with hyperglycemia, without [...] Negative Ketones, ur, POC Trace(A) Negative Specific [place], POC 1.025 1.003 - 1.030 Blood, ur, POC Negative Negative pH, ur, POC 6.0 5.0 - 8.0 Protein, ur, POC 100.(A) Negative Urobilinogen, urine, POC 1.0 0.2 - 1.0 mg/dL Nitrite, ur, POC Positive(A) Negative Leukocytes, ur, POC Small(A) Negative Lot Number [id number] Urine 01/11/2025 5:34 PM CDT Hawa Chino NP POINT OF CARE TEST ORDERABLES Final Result * POCT hemoglobin A1c (09/03/2024 1:16 PM BULK SEALER OPERATOR) Hemoglobin A1C, POC 6.8 4.0 - 5.6 % Blood 09/03/2024 1:16 PM BULK SEALER OPERATOR Viridiana Faustin NP POINT OF CARE TEST ORDERABLES F inal Result * eGFR (05/21/2024 11:51 AM BULK SEALER OPERATOR) eGFR >90 >=60 mL/min/1. 73 m2 Comment: [...] reviewed 2021. Blood 05/21/2024 11:5 1 AM BULK SEALER OPERATOR 05/21/2024 8:13 PM BULK SEALER OPERATOR us Viridiana Faustin NP LAB BLOOD ORDERABLES Final Resu lt [facility] [address] Department [place] [address] * Albumin Creatinine Ratio, Urine (05/21/2024 11:51 AM BULK SEALER OPERATOR) Albumin Ur <12.0 mg/L Comment: Interpretive Data No reference range established. Current interpretive data was last revised 2018. Creatinine Ur 26.3 mg/dL VELIA Comment: Interpretive Data No reference range established. Current interpretive data was last revised 2018. Albumin Creatinine Ratio, Ur See Comment 1 - 29 VELIA Comment:Unable to calculate Urine 05/21/2024 11:5 1 AM BULK SEALER OPERATOR 05/21/2024 8:11 PM BULK SEALER OPERATOR us Viridiana Faustin NP LAB URINE ORDERABLES Final Resu lt VELIA [address] Department [place] [address] * (ABNORMAL) Lipid panel (05/21/2024 11:51 AM BULK SEALER OPERATOR) Cholesterol 225(H) 30 - 199 mg/dL Comment: [...] on 2018. Triglycerides 148 <=149 mg/dL VELIA MARIA Comment: Interpretive Data Ages [...] on 2018. HDL 62 >=40 mg/dL VELIA MARIA Comment: Interpretive Data Ages [...] 2018. LDL, calculated 137(H) <=129 mg/dL VELIA MARIA Comment: Interpretive Data Ages [...] 3. Jack Hilton et al. NORMAN Cardiol. 2019November 07;5(5):540-548. doi: 10.1001/[email or web address] Current Interpretive Data was [...] revised on 2018. Chol/HDL ratio 4 VELIA MARIA Blood 05/21/2024 11:5 1 AM BULK SEALER OPERATOR 05/21/2024 8:11 PM BULK SEALER OPERATOR Narrative VELIA MARIA - 05/21/2024 9:30 PM BULK SEALER OPERATOR These lab test should be done fasting. This means do not eat or drink for at least 12 hours prior to getting your blood drawn. us Viridiana Faustin NP LAB BLOOD ORDERABLES Final Resu lt [facility]IA MARIA [address] Department [place] [address] * Diabetic Eye Exam (03/16/2023) Historical Provider MD HEALTH MAINTENANCE Final Result from Last 3 Months or Most Recently Relevant to Health Maintenance Insurance [facility] MEDICARE GOLD [facility] MEDICARE GOLD Care Teams Bearing Inspector Relationship Specialty Start Date End Date Daren Zamarripa MD [address] [address] PCP - General Family Medicine 03/28/22
--- OUTSIDE RECORDS SUMMARY | 2025-01-11 19:25 | XMS_ITS | Encounter Summary ---
Author Organization [facility] Healthcare Address [address] [place] [address] Care Team Providers Care Payroll And Benefits Coordinator Name Role Phone Daren Zamarripa MD Primary Care Provider [phone] Encounter Details Date Type Department Care Team (Latest Contact Info) Description 01/11/2025 7:15 PM CDT Hospital Encounter [facility] [address] [place] [address] Frequency of urination Social History Tobacco Use Types Packs/Day Years Used Date Smoking Tobacco: Former Comments Unknown Sex and Gender Information Value Date Recorded Sex Assigned at Not on file Legal Sex Female 8:21 AM MANAGER CARDIAC Gender Identity Not on file Sexual Orientation Not on file documented as of this encounter Plan of Treatment Scheduled Orders Name Type Priority Associated Diagnoses Orde r Schedule Urine culture Urine, clean voided Microbiology Routine Frequency of urination Once for 1 Occurrences starting 01/11/2025 until 01/11/2025 documented as of this encounter Visit Diagnoses Diagnosis Frequency of urination Urinary frequency documented in this encounter Care Teams Payroll And Benefits Coordinator Relationship Specialty Start Date End Date Daren Zamarripa MD [address] [address] PCP - General Family Medicine 03/28/22 documented as of this encounter
[2025-01-11 19:26] VITALS: BP 151/54; PULSE 111; RESP 20; TEMP 36.7; O2SAT 95
[2025-01-11 21:37] VITALS: TEMP 39.1
[2025-01-11] MEDS: IBUPROFEN 400 MG TABLET 800 MG PO (21:48)
[2025-01-11 22:10] LABS: Add Urine Microscopic? YES; Appearance Urine Cloudy (Clear); Glucose Urine UA Negative (Negative); Leukocyte Esterase Ur 2+ LEU/UL (Negative); Nitrate Urine Negative (Negative); Non Pathogenic Casts 0-2; Specific Grav Ur 1.024 (1.001-1.035)
[2025-01-11 22:46] VITALS: TEMP 37.6; O2SAT 98
--- OUTSIDE RECORDS SUMMARY | 2025-01-11 23:18 | XMS_ITS | Encounter Summary ---
Author Organization [facility] Healthcare Address [address] [place] [address] Care Team Providers Care Lighting Director Name Role Phone Daren Zamarripa MD Primary Care Provider [phone] Reason for Visit * Reason Comments Urinary Frequency Patient has history of kidney stones, back aches, Head hurts, fever. Burning with urination, Nausea. Started Monday Encounter Details Date Type Department Care Team (Late st Contact Info) Description 01/11/2025 6:00 PM CDT Office Visit [facility] Medical Group Convenient Care at [address] [address] Hawa Chino NP [address] [place] [address] Frequency of urination (Primary Dx) Social History Tobacco Use Types Packs/Day Years Used Date Smoking Tobacco: Former Comments Unknown Sex and Gender Information Value Date Recorded Sex Assigned at Not on file Legal Sex Female 8:21 AM ARABIC TRANSLATOR Gender Identity Not on file Sexual Orientation [...] documented in this encounter Plan of Treatment Pending Results Name Type Priority Associated Diagnoses Date /Time Urine culture Urine, clean voided Microbiology Routine Frequency of urination 01/11/2025 7:23 PM CDT Scheduled Orders Name Type Priority Associated Diagnoses [...] Negative Ketones, ur, POC Trace(A) Negative Specific [place], POC 1.025 1.003 - 1.030 Blood, ur, POC Negative Negative pH, ur, POC 6.0 5.0 - 8.0 Protein, ur, POC 100.(A) Negative Urobilinogen, urine, POC 1.0 0.2 - 1.0 mg/dL Nitrite, ur, POC Positive(A) Negative Leukocytes, ur, POC Small(A) Negative Lot Number [id number] Urine 01/11/2025 5:34 PM CDT Hawa Chino TANK ASSEMBLER POINT OF CARE TEST ORDERABLES Final Result documented in this encounter Visit Diagnoses Diagnosis Frequency of urination- Primary Urinary frequency documented in this encounter Care Teams Lighting Director Relationship Specialty Start Date End Date Daren Zamarripa MD [address] [address] PCP - General Family Medicine 03/28/22 documented as of this encounter
--- OUTSIDE RECORDS SUMMARY | 2025-01-11 23:18 | XMS_ITS | Referral Summary ---
Author Organization [facility] Medical Office Building A Address [address] [place] [address] Care Team Providers Care Pain Management Nurse Practitioner Name Role Phone Daren Zamarripa MD Primary Care Provider [phone] Encounters Date Type Department Care Team Description 01/11/2025 7:15 PM CDT Hospital Encounter [address] [address] Frequency of urination 01/11/2025 6:00 PM CDT Office Visit [facility] Convenient Care at [address] [address] Hawa Chino NP Frequency of urination (Primary Dx) 01/09/2025 Telephone [facility] Diabetes Endocrine Care at [address] [place] [address] Viridiana Faustin NP 10/15/2024 Telephone [facility] Diabetes Endocrine Care at [address] [place] [phone] Viridiana Faustin, MODEL ARTISTS' from Last 3 Months Allergies Active Allergy [...] hyperglycemia, without long-term current use of insulin ([facility]) Check blood sugar 3x times a day or as directed. E11.65 300 each 3 3 Active lancets miscIndications: Type 2 diabetes mellitus with hyperglycemia, without long-term current use of insulin ([facility]) 1 each by other route 3 (three) [...] hyperglycemia, without long-term current use of insulin ([facility]) Use 2 times daily for monitoring of blood sugar for diabetes. E11.65 1 kit 4 Active HYDROcodone-acet aminophen (NORCO) 5-325 mg per tablet Take by mouth every 6 (six) hours as needed 4 Active Janumet XR 100-1,000 mg tablet, ER multiphase 24 hrIndications:Ty pe 2 diabetes mellitus with hyperglycemia, without long-term current use of insulin ([facility]) TAKE ONE TABLET BY MOUTH EVERY DAY [...] device Assessment & Plan (09/03/2024 1:52 PM SENIOR ENGINEERING TEAM LEADER): Continuous glucose monitor (cgm) applied from 08/21/2024 to 09/03/2024 This device was placed for monitor and treatment of blood sugar. Interpretation of data- average glucose 181, 51% time in range. 49% hyperglycemia. 0 hypoglycemia Assessment & Plan (05/21/2024 12:41 PM SENIOR ENGINEERING TEAM LEADER): Continuous glucose monitor (cgm) applied from 05/08 to 05/21/2024 This device was placed for monitor and treatment of blood sugar. Interpretation of data- average glucose 268, 11% time in range. 89% hyperglycemia. 0 hypoglycemia Hypertension associated with type 2 diabetes kennedy litus 11/01/2023 Assessment & Plan (05/21/2024 12:38 PM SENIOR ENGINEERING TEAM LEADER): This is a chronic condition which is [...] 11/10/2022 Assessment & Plan (05/21/2024 12:39 PM SENIOR ENGINEERING TEAM LEADER): This is a chronic condition which continues [...] sessions. Assessment & Plan (06/28/2023 11:38 AM SENIOR ENGINEERING TEAM LEADER): This is a chronic condition which is improving 5 lb weight loss since last office visit Has stopped eating bread and not keeping ice cream in the house Encouraged additional weight loss and exercise Assessment & Plan (06/28/2023 11:37 AM SENIOR ENGINEERING TEAM LEADER): >>ASSESSMENT AND PLAN FOR BODY MASS INDEX 40.0-44.9, ADULT ([facility]) ([facility]) WRITTEN ON 11/10/2022 4:12 PM BY VIRIDIANA FAUSTIN NP This is a chronic condition. She has lost 52 lb over the last 2 years She declined the use of GLP 1 as she is afraid of side effects Assessment & Plan (06/28/2023 11:37 AM SENIOR ENGINEERING TEAM LEADER): >>ASSESSMENT AND PLAN FOR BODY MASS INDEX 40.0-44.9, ADULT ([facility]) ([facility]) WRITTEN ON 02/13/2023 12:26 PM BY VIRIDIANA FAUSTIN NP This is a chronic condition which is worsening 10 lb weight gain since last office visit Discussed the importance eating healthy Ambulatory referral to diabetes education/nutritional counseling Encouraged increased activity Type 2 diabetes mellitus wit hout complication, with long-term current use of insulin 11/05/2020 Assessment & Plan (05/21/2024 12:38 PM SENIOR ENGINEERING TEAM LEADER): This is a chronic condition which is [...] hydrochlorothiazide Assessment & Plan (06/28/2023 11:35 AM SENIOR ENGINEERING TEAM LEADER): This is a chronic condition which is [...] No history of macrovascular disease - CVA, [place]. Hyperlipidemia associated with type 2 diabetes valeria hansen 11/05/2020 Assessment & Plan (05/21/2024 12:39 PM SENIOR ENGINEERING TEAM LEADER): This is a chronic condition which is [...] prescribed. Assessment & Plan (06/28/2023 11:35 AM SENIOR ENGINEERING TEAM LEADER): This is a chronic condition which is [...] on file Legal Sex Female 8:21 AM SENIOR ENGINEERING TEAM LEADER Gender Identity Not on file Sexual Orientation [...] Weight 110.9 kg (244 lb 9.6 oz) 025 1:10 PM SENIOR ENGINEERING TEAM LEADER Height 162.6 cm (5' 4) 09/03/2024 1:10 PM SENIOR ENGINEERING TEAM LEADER Body Mass Index 41.99 09/03/2024 1:10 PM SENIOR ENGINEERING TEAM LEADER Plan of Treatment Not on file Procedures Procedure Name Priority Date/Time Associated Diagnosis Comments POCT URINALYSIS DIPSTICK Routine 01/11/2025 5:34 PM CDT Frequency of urination POCT HEMOGLOBIN A1C Routine 09/03/2024 1 :16 PM SENIOR ENGINEERING TEAM LEADER Type 2 diabetes mellitus without complication, with long-term current use of insulin (HCC) EGFR Routine 05/21/2024 11:51 AM SENIOR ENGINEERING TEAM LEADER Type 2 diabetes mellitus with hyperglycemia, without long-term current use of insulin (HCC) LIPID PANEL Routine 05/21/2024 11:51 AM SENIOR ENGINEERING TEAM LEADER Type 2 diabetes mellitus with hyperglycemia, without long-term current use of insulin (HCC) ALBUMIN CREATININE RATIO, URINE Routine 05/21/2024 11:51 AM SENIOR ENGINEERING TEAM LEADER Type 2 diabetes mellitus with hyperglycemia, without [...] Negative Ketones, ur, POC Trace(A) Negative Specific [place], POC 1.025 1.003 - 1.030 Blood, ur, POC Negative Negative pH, ur, POC 6.0 5.0 - 8.0 Protein, ur, POC 100.(A) Negative Urobilinogen, urine, POC 1.0 0.2 - 1.0 mg/dL Nitrite, ur, POC Positive(A) Negative Leukocytes, ur, POC Small(A) Negative Lot Number [id number] Urine 01/11/2025 5:34 PM CDT Hawa Chino MODEL ARTISTS' POINT OF CARE TEST ORDERABLES Final Result * POCT hemoglobin A1c (09/03/2024 1:16 PM SENIOR ENGINEERING TEAM LEADER) Pathologist [facility] Hemoglobin A1C, POC 6.8 4.0 - 5.6 % Blood 09/03/2024 1:16 PM SENIOR ENGINEERING TEAM LEADER Viridiana Faustin MODEL ARTISTS' POINT OF CARE TEST ORDERABLES F inal Result * eGFR (05/21/2024 11:51 AM SENIOR ENGINEERING TEAM LEADER) Pathologist [facility] eGFR >90 >=60 mL/min/1. 73 m2 Comment: [...] reviewed 2021. Blood 05/21/2024 11:5 1 AM SENIOR ENGINEERING TEAM LEADER 05/21/2024 8:13 PM SENIOR ENGINEERING TEAM LEADER Viridiana Faustin MODEL [employer]ISTS' LAB BLOOD ORDERABLES Final Resu lt Performing Organization Address [facility] de Phone Number VELIA MARIA [address] [address] [place] [address] * Albumin Creatinine Ratio, Urine (05/21/2024 11:51 AM SENIOR ENGINEERING TEAM LEADER) Albumin Ur <12.0 mg/L Comment: Interpretive Data No reference range established. Current interpretive data was last revised 2018. Creatinine Ur 26.3 mg/dL VELIA Comment: Interpretive Data No reference range established. Current interpretive data was last revised 2018. Albumin Creatinine Ratio, Ur See Comment 1 - 29 VELIA Comment:Unable to calculate Urine 05/21/2024 11:5 1 AM SENIOR ENGINEERING TEAM LEADER 05/21/2024 8:11 PM SENIOR ENGINEERING TEAM LEADER Viridiana Faustin [employer] LAB URINE ORDERABLES Final Resu lt Performing Organization Address [facility] de Phone Number VELIA MARIA [address] [address] [place] [address] * (ABNORMAL) Lipid panel (05/21/2024 11:51 AM SENIOR ENGINEERING TEAM LEADER) Cholesterol 225(H) 30 - 199 mg/dL Comment: [...] 4 VELIA Blood 05/21/2024 11:5 1 AM SENIOR ENGINEERING TEAM LEADER 05/21/2024 8:11 PM SENIOR ENGINEERING TEAM LEADER Narrative VELIA - 05/21/2024 9:30 PM SENIOR ENGINEERING TEAM LEADER These lab test should be done fasting. This means do not eat or drink for at least 12 hours prior to getting your blood drawn. Viridiana Faustin NP LAB BLOOD ORDERABLES Final Resu lt VELIA [address] [address] Department [place] [address] * Diabetic Eye Exam (03/16/2023) Historical Provider HEALTH MAINTENANCE Final Result from Last 3 Months or Most Recently Relevant to Health Maintenance Insurance [employer] MEDICARE GOLD [employer] MEDICARE GOLD Care Teams Pain Management Nurse Practitioner Relationship Specialty Start Date End Date Daren Zamarripa MD [address] [address] PCP - General Family Medicine 03/28/22
--- OUTSIDE RECORDS SUMMARY | 2025-01-11 23:18 | XMS_ITS | Clinical Summary ---
Author Organization [facility] Medical Office Building A Address [address] [place] [address] Care Team Providers Care Advertising Sales Representative Name Role Phone Daren Zamarripa MD Primary Care Provider [phone] Allergies Active Allergy Reactions Criticality Noted Date [...] device Assessment & Plan (09/03/2024 1:52 PM AUDIOVISUAL TECH): Continuous glucose monitor (cgm) applied from 08/21/2024 to 09/03/2024 This device was placed for monitor and treatment of blood sugar. Interpretation of data- average glucose 181, 51% time in range. 49% hyperglycemia. 0 hypoglycemia Assessment & Plan (05/21/2024 12:41 PM AUDIOVISUAL TECH): Continuous glucose monitor (cgm) applied from 05/08 to 05/21/2024 This device was placed for monitor and treatment of blood sugar. Interpretation of data- average glucose 268, 11% time in range. 89% hyperglycemia. 0 hypoglycemia Hypertension associated with type 2 diabetes kennedy litus 11/01/2023 Assessment & Plan (05/21/2024 12:38 PM AUDIOVISUAL TECH): This is a chronic condition which is [...] 11/10/2022 Assessment & Plan (05/21/2024 12:39 PM AUDIOVISUAL TECH): This is a chronic condition which continues [...] sessions. Assessment & Plan (06/28/2023 11:38 AM AUDIOVISUAL TECH): This is a chronic condition which is improving 5 lb weight loss since last office visit Has stopped eating bread and not keeping ice cream in the house Encouraged additional weight loss and exercise Assessment & Plan (06/28/2023 11:37 AM AUDIOVISUAL TECH): >>ASSESSMENT AND PLAN FOR BODY MASS INDEX 40.0-44.9, ADULT ([facility]) ([facility]) WRITTEN ON 11/10/2022 4:12 PM BY VIRIDIANA FAUSTIN NP This is a chronic condition. She has lost 52 lb over the last 2 years She declined the use of GLP 1 as she is afraid of side effects Assessment & Plan (06/28/2023 11:37 AM AUDIOVISUAL TECH): >>ASSESSMENT AND PLAN FOR BODY MASS INDEX 40.0-44.9, ADULT ([facility]) ([facility]) WRITTEN ON 02/13/2023 12:26 PM BY VIRIDIANA FAUSTIN, RIANA This is a chronic condition which is worsening 10 lb weight gain since last office visit Discussed the importance eating healthy Ambulatory referral to diabetes education/nutritional counseling Encouraged increased activity Type 2 diabetes mellitus wit hout complication, with long-term current use of insulin 11/05/2020 Assessment & Plan (05/21/2024 12:38 PM AUDIOVISUAL TECH): This is a chronic condition which is [...] hydrochlorothiazide Assessment & Plan (06/28/2023 11:35 AM AUDIOVISUAL TECH): This is a chronic condition which is [...] No history of macrovascular disease - CVA, [place]. Hyperlipidemia associated with type 2 diabetes valeria hansen 11/05/2020 Assessment & Plan (05/21/2024 12:39 PM AUDIOVISUAL TECH): This is a chronic condition which is [...] prescribed. Assessment & Plan (06/28/2023 11:35 AM AUDIOVISUAL TECH): This is a chronic condition which is [...] Description 01/11/2025 7:15 PM CDT Hospital Encounter [address] [address] Frequency of urination 01/11/2025 6:00 PM CDT Office Visit [facility] Convenient Care at [address] [address] Hawa Chino NP Frequency of urination (Primary Dx) 01/09/2025 Telephone [facility] Diabetes Endocrine Care at [address] [place] [address] Viridiana Faustin NP 10/15/2024 Telephone [facility] Diabetes Endocrine Care at [address] [place] [phone] Viridiana Faustin, SR. CONSULTANT from Last 3 Months Medical History Medical [...] on file Legal Sex Female 8:21 AM AUDIOVISUAL TECH Gender Identity Not on file Sexual Orientation [...] (244 lb 9.6 oz) 09/03/2024 1:10 PM AUDIOVISUAL TECH Height 162.6 cm (5' 4) 09/03/2024 1:10 PM AUDIOVISUAL TECH Body Mass Index 41.99 09/03/2024 1:10 PM AUDIOVISUAL TECH Plan of Treatment Health Maintenance Due Date [...] HEMOGLOBIN A1C Routine 09/03/2024 1 :16 PM AUDIOVISUAL TECH Type 2 diabetes mellitus without complication, with long-term current use of insulin (HCC) EGFR Routine 05/21/2024 11:51 AM AUDIOVISUAL TECH Type 2 diabetes mellitus with hyperglycemia, without long-term current use of insulin (HCC) LIPID PANEL Routine 05/21/2024 11:51 AM AUDIOVISUAL TECH Type 2 diabetes mellitus with hyperglycemia, without long-term current use of insulin (HCC) ALBUMIN CREATININE RATIO, URINE Routine 05/21/2024 11:51 AM AUDIOVISUAL TECH Type 2 diabetes mellitus with hyperglycemia, without [...] Negative Ketones, ur, POC Trace(A) Negative Specific [place], POC 1.025 1.003 - 1.030 Blood, ur, POC Negative Negative pH, ur, POC 6.0 5.0 - 8.0 Protein, ur, POC 100.(A) Negative Urobilinogen, urine, POC 1.0 0.2 - 1.0 mg/dL Nitrite, ur, POC Positive(A) Negative Leukocytes, ur, POC Small(A) Negative Lot Number [id number] Urine 01/11/2025 5:34 PM CDT Hawa Chino NP POINT OF CARE TEST ORDERABLES Final Result * POCT hemoglobin A1c (09/03/2024 1:16 PM AUDIOVISUAL TECH) Hemoglobin A1C, POC 6.8 4.0 - 5.6 % Blood 09/03/2024 1:16 PM AUDIOVISUAL TECH Viridiana Faustin NP POINT OF CARE TEST ORDERABLES F inal Result * eGFR (05/21/2024 11:51 AM AUDIOVISUAL TECH) eGFR >90 >=60 mL/min/1. 73 m2 Comment: [...] reviewed 2021. Blood 05/21/2024 11:5 1 AM AUDIOVISUAL TECH 05/21/2024 8:13 PM AUDIOVISUAL TECH us Viridiana Faustin NP LAB BLOOD ORDERABLES Final Resu lt [facility] [address] [address] Department [place] [address] * Albumin Creatinine Ratio, Urine (05/21/2024 11:51 AM AUDIOVISUAL TECH) Albumin Ur <12.0 mg/L Comment: Interpretive Data No reference range established. Current interpretive data was last revised 2018. Creatinine Ur 26.3 mg/dL VELIA Comment: Interpretive Data No reference range established. Current interpretive data was last revised 2018. Albumin Creatinine Ratio, Ur See Comment 1 - 29 VELIA Comment:Unable to calculate Urine 05/21/2024 11:5 1 AM AUDIOVISUAL TECH 05/21/2024 8:11 PM AUDIOVISUAL TECH us Viridiana Faustin NP LAB URINE ORDERABLES Final Resu lt VELIA [address] [address] Department [place] [address] * (ABNORMAL) Lipid panel (05/21/2024 11:51 AM AUDIOVISUAL TECH) Cholesterol 225(H) 30 - 199 mg/dL Comment: [...] VELIA MARIA Blood 05/21/2024 11:5 1 AM AUDIOVISUAL TECH 05/21/2024 8:11 PM AUDIOVISUAL TECH Narrative VELIA MARIA - 05/21/2024 9:30 PM AUDIOVISUAL TECH These lab test should be done fasting. This means do not eat or drink for at least 12 hours prior to getting your blood drawn. us Viridiana Faustin NP LAB BLOOD ORDERABLES Final Resu lt VELIA MARIA [address] [address] Department [place] [address] * Diabetic Eye Exam (03/16/2023) Historical Provider MD HEALTH MAINTENANCE Final Result from Last 3 Months or Most Recently Relevant to Health Maintenance Insurance ON LICENSE OF [facility] MEDICARE GOLD ON LICENSE OF [facility] MEDICARE GOLD Care Teams Advertising Sales Representative Relationship Specialty Start Date End Date Daren Zamarripa MD [address] [address] PCP - General Family Medicine 03/28/22
--- OUTSIDE RECORDS SUMMARY | 2025-01-11 23:18 | XMS_ITS | Encounter Summary ---
Author Organization [facility] Healthcare Address [address] [place] [address] Care Team Providers Care Gamma Facilities Operator Name Role Phone Daren Zamarripa MD Primary Care Provider [phone] Encounter Details Date Type Department Care Team (Latest Contact Info) Description 01/11/2025 7:15 PM CDT Hospital Encounter [facility] [address] [place] [address] Frequency of urination Social History Tobacco Use Types Packs/Day Years Used Date Smoking Tobacco: Former Comments Unknown Sex and Gender Information Value Date Recorded Sex Assigned at Not on file Legal Sex Female 8:21 AM PRUNER Gender Identity Not on file Sexual Orientation Not on file documented as of this encounter Plan of Treatment Pending Results [...] frequency documented in this encounter Care Teams Gamma Facilities Operator Relationship Specialty Start Date End Date Daren Zamarripa MD [address] [address] PCP - General Family Medicine 03/28/22 documented as of this encounter
--- OUTSIDE RECORDS SUMMARY | 2025-01-11 23:18 | XMS_ITS | Clinical Summary ---
Author Organization [facility] Address [address] [place] [address] Care Team Providers Care Syrup Blender Name Role Phone Unavailable Primary Care Provider Unavailabl e Source Comments [facility] Apartment List,non-owned Affiliates and Associated Physician Practices is amultiple site organization consisting of ambulatory clinics and hospital sitesin [place], [place], [place] and [place]. This disclosure is being madepursuant to the Care Everywhere program and may not contain all information available regarding this patient. Last updated 18.[facility] Apartment List Active Problems Problem Noted Date Diagnosed Date Acute ischemic left MCA stroke 08/14/2023 Social History Tobacco Use Types Packs/Day Years Used Date Smoking Tobacco: Never Assessed Comments Unknown Sex and Gender Information Value Date Recorded Sex Assigned at Not on file Legal Sex Female 6:17 AM COMPLEX CARE NURSE PRACTITIONER Gender Identity Not on file Sexual Orientation [...] Patient Date of Phone Billing Address Personal/Family [address] [place], [place] [phone] [employer] MEDICARE ADV SELF PAY NO INSURANCE Member Subscriber Plan / Payer (Ef fective for All Dates) Name:Kassie Flores Member ID:Not on file Relation to Subscriber:Not on file Name:KASSIE FLORES Subscriber ID:Not on file Address: [address] [place], [place] [phone] Payer ID:Not on file Group ID:Not on file Type:Self Pay Address: [place], [place] * Guarantor: KASSIE FLORES Account Type Relation to Patient Date of Phone Billing Address Personal/Family [address] [place], [place] [id number] [employer] MEDICARE ADV SELF PAY NO INSURANCE Member Subscriber Plan / Payer (Ef fective for All Dates) Name:Kassie Flores Member ID:Not on file Relation to Subscriber:Not on file Name:KASSIE FLORES Subscriber ID:Not on file Address: [address] [place] [phone] Payer ID:Not on file Group ID:Not on file Type:Self Pay Address: [place], [place] * Guarantor: KASSIE FLORES Account Type Relation to Patient Date of Phone Billing Address Personal/Family [address] [place] [phone] [employer] MEDICARE ADV SELF PAY NO INSURANCE Member Subscriber Plan / Payer (Ef fective for All Dates) Name:Kassie Flores Member ID:Not on file Relation to Subscriber:Not on file Name:KASSIE FLORES Subscriber ID:Not on file Address: [address] [place] [phone] Payer ID:Not on file Group ID:Not on file Type:Self Pay Address: [place], [place]
--- NOTE | 2025-01-12 00:04 | ECG_ITS ---
Test Date: 2025-01-12 01:22:03 Measurements Intervals [place] Rate: 77 P: 68 VT: 162 QRS: -57 QRSD: 89 T: 52 QT: 385 QTc: 436 Interpretive Statements SINUS RHYTHM LEFT ANTERIOR FASCICULAR BLOCK [QRS AXIS <= -45, QR IN I, RS IN II] POSSIBLE ANTERIOR MYOCARDIAL INFARCTION , PROBABLY OLD [30 ms Q WAVE IN V3/V4, OR R < 0.2 mV IN V4] No previous ECG available for comparison Electronically Signed On 01-12-2025 13:48:20 CDT by Titus Ballard M.D.
--- NOTE | 2025-01-12 00:10 | ED_ITS ---
HPI - Female Genitourinary General Chief complaint: Urogenital-Female <Emilee Lofton PA-C - Last Filed: 01/12/25 02:15> Stated complaint: left UC, UTI, nausea, DAWKINS <Emilee Lofton PA-C - Last Filed: 01/12/25 02:15> Time Seen by Provider: 01/11/25 23:07 <Emilee Lofton PA-C - Last Filed: 01/12/25 02:15> History of Present Illness HPI Narrative: 69-year-old female with history of GA D, hypertension, type 2 diabetes, kidney stones presents to the emergency department for 3 days of urinary frequency, urgency, dysuria and bilateral flank pain for the past 3 days. Patient reports associated chills and hot flashes with subjective fevers. She attempted to contact her PCP but unfortunately was unable to get a hold of them. She went to urgent care today and was told she had urinary tract infection was advised to come to the ED for further evaluation due to concerns for a ?kidney infection. The patient states she thought she saw some hematuria at the onset of her symptoms but has not seen any since. She reports nausea, no vomiting. She is reporting suprapubic abdominal pain. Her urologist is Dr. Fields. < Emilee Lofton PA-C - Last Filed: 01/12/25 02:15> Related Data Home medications: Home Medications ?Medication ?Instructions ?Recorded ?Confirmed ?Last Taken ?Type ascorbic acid (vitamin C) 1,000 mg 1 g PO DAILY 11/15/23 10/22/24 11/20/23 History tablet (Vitamin C) aspirin 81 mg capsule 162 mg PO DAILY 11/15/23 10/22/24 11/17/23 History davon root extract 1 tab-cap DAILY 11/15/23 10/22/24 11/20/23 History vitamin A-vitamin C-vit E-min 1 tablet DAILY 11/15/23 10/22/24 11/20/23 History tablet insulin aspart (niacinamide) 9 unit subcut TIDWM 10/22/24 10/22/24 Unknown History (U-100) 100 unit/mL subcutaneous solution (Fiasp U-100 Insulin) insulin degludec 100 unit/mL 36 unit subcut DAILY 10/22/24 10/22/24 Unknown History subcutaneous solution (Tresiba U-100 Insulin) pravastatin 40 mg tablet 40 mg PO QHS 10/22/24 10/22/24 Unknown History <Emilee Lofton PA-C - Last Filed: 01/12/25 02:15> Allergies/Adverse reactions: Allergies Allergy/AdvReac Type Severity Reaction Status Date / Time ciprofloxacin Allergy Intermediate Hives / Verified 01/11/25 19:29 Red Face codeine Allergy Unknown Hives Verified 01/11/25 19:29 <Emilee Lofton PA-C - Last Filed: 01/12/25 02:15> Review of Systems 2 Review of Systems: All systems reviewed & are unremarkable except as noted in HPI and below <Emilee Lofton PA-C - Last Filed: 01/12/25 02:15> [facility] Past Medical History Medical History: Medical History Dysuria Multiple pulmonary nodules determined by computed tomography of lung (~09/05/16) multiple pulmonary nodules on CT 08/14/2023 in the ER with largest at 2.1 cm in the right middle lobe, increased from 09/05/2016 with possible granulomatous disease or malignancy. Radiologist recommend CT-guided biopsy. Bilateral renal stones has small bilateral renal stones on CT on 10/11/2023. Lower abdominal pain Welcome to Medicare preventive visit At low risk for fall Hematuria CT of abdomen and pelvis 10/11/2023 with small bilateral renal stones. Osteoarthritis of hands, bilateral Screening for diabetic retinopathy no diabetic retinopathy on 03/16/2023. No retinopathy 12/03/2024. COVID-19 (09/09/20) Influenza-like illness (06/25/22) Morbid obesity with BMI of 40.0-44.9, adult Acute non-recurrent maxillary sinusitis BMI 40.0-44.9, adult Elevated liver enzymes AST 120 and ALT 124 on 04/28/2020. AST 40, ALT 37, GGT 33 on 12/29/2022. AST 31, ALT 23 on 05/21/2024. Colon cancer screening Hypersomnia BMI 39.0-39.9,adult Gastro-esophageal reflux disease without esophagitis GERD (gastroesophageal reflux disease) Diabetes Venous insufficiency Obesity due to excess calories Acute otitis media, right Transaminitis Thrombophlebitis leg Nephrolithiasis Cough due to EDDIE inhibitor Bronchitis Anxiety BMI 40.0-44.9, adult Other specified phobia <Emilee Lofton PA-C - Last Filed: 01/12/25 02:15> Family History Family History: Family History Father Cancer Mother Hypertension <Emilee Lofton PA-C - Last Filed: 01/12/25 02:15> Social History Social History: Social History Social History: Smoking packs per day: 0.5 Smoking cigarettes per day: 10.0 Years smoked: 5 Smoking pack-years: 2.50 Smoking status: Former smoker Tobacco type: cigarettes Second hand tobacco smoke exposure: No Smoking end date: 07/10/92 Alcohol intake: never Substance use: never Substance use type: does not use Do You Feel Safe in your Home?: Yes Lack of Transportation: No Lack of Food: Never True Current Housing: I Have Housing Concerned About Future Housing: No Difficulty Paying Gas/Electric Bills: No Difficulty Paying for Meds: No Currently Unemployed: No Education: High School Diploma/GED Difficulty w/ Childcare or Family Care: No Living arrangements: with family Occupation/Education: occupation Gender identity (if verbalized by the patient): Female Sexual Orientation (if Verbalized by the Patient): Straight or Heterosexual Spiritual care concerns: No <Emilee Lofton PA-C - Last Filed: 01/12/25 02:15> Exam 2 Narrative: GENERAL: Uncomfortable appearing, well-nourished, and in no acute distress. HEAD: Normocephalic, atraumatic. EYES: PERRLA and EOMI. ENT: Nares clear, no rhinorrhea or epistaxis. Mucous membranes moist. NECK: Supple. No nuchal rigidity CHEST: Clear to auscultation. No respiratory distress. HEART: Regular rate and rhythm. No murmur heard. Normal peripheral pulses. ABDOMEN: Normoactive bowel sounds. Abdomen soft with tenderness to the suprapubic region. No rebound or rigidity. Mild bilateral CVA tenderness EXTREMITIES: Normal range of motion. No edema. SKIN: Warm, dry, no rash. NEURO: No focal deficits. Alert and oriented x3 <Emilee Lofton PA-C - Last Filed: 01/12/25 02:15> Course CLASSIFICATION INSPECTOR/PA Physician Supervision This visit was performed by both a physician and an APC. I performed all aspects of the MDM as documented. <Gilson Flores MD - Last Filed: 01/12/25 05:53> Vital Signs Vital signs: Vital Signs Temperature 36.7 C 01/11/25 19:26 Pulse Rate 111 H 01/11/25 19:26 Respiratory Rate 20 01/11/25 19:26 Blood Pressure 151/54 H 01/11/25 19:26 Pulse Oximetry 95 01/11/25 19:26 Oxygen Delivery Room Air 01/11/25 19:26 Temperature 37.1 C 01/12/25 02:21 Pulse Rate 70 01/12/25 02:21 Respiratory Rate 18 01/12/25 02:21 Blood Pressure 136/72 01/12/25 02:21 Pulse Oximetry 95 01/12/25 02:21 Oxygen Delivery Room Air 01/11/25 19:26 <Emilee Lofton PA-C - Last Filed: 01/12/25 02:15> Vital Signs Temperature 36.7 C 01/11/25 19:26 Pulse Rate 111 H 01/11/25 19:26 Respiratory Rate 20 01/11/25 19:26 Blood Pressure 151/54 H 01/11/25 19:26 Pulse Oximetry 95 01/11/25 19:26 Oxygen Delivery Room Air 01/11/25 19:26 Temperature 37.1 C 01/12/25 02:21 Pulse Rate 70 01/12/25 02:21 Respiratory Rate 18 01/12/25 02:21 Blood Pressure 136/72 01/12/25 02:21 Pulse Oximetry 95 01/12/25 02:21 Oxygen Delivery Room Air 01/11/25 19:26 <Gilson Flores MD - Last Filed: 01/12/25 05:53> MDM - Female Genitourinary MDM Narrative Medical decision making narrative: 69-year-old female presents emergency department for urinary frequency, urgency, dysuria, subjective fevers for the past 3 days. Triage vitals with tachycardia 111. Patient did spike a fever to 102.3 while in the ED and was given 800 mg of ibuprofen. Repeat temperature is 99.7. Fluids initiated. Exam is notable for the above. Lab work shows no leukocytosis. Chemistries are largely unremarkable. UA indicative of UTI with 51-100 white blood cells, 3-5 RBCs, 2+ leuk esterase, 3+ bacteria. Urine cultures pending. Lactic is normal 1.1. EKG shows normal sinus rhythm with a rate of 77 ppm, normal AL interval, normal QRS duration, normal QTC, no ST elevations or depressions. Pending CT abdomen pelvis without contrast to evaluate for septic ureteral stone at time of sign-out to Dr. Flores. The patient was given a dose of Rocephin and a total 2 L of fluids with improvement. Her heart rate is now in the 70s. < Emilee Lofton PA-C - Last Filed: 01/12/25 02:15> 69-year-old female presents emergency department for urinary frequency, urgency, dysuria, subjective fevers for the past 3 days. Triage vitals with tachycardia 111. Patient did spike a fever to 102.3 while in the ED and was given 800 mg of ibuprofen. Repeat temperature is 99.7. Fluids initiated. Exam is notable for the above. Lab work shows no leukocytosis. Chemistries are largely unremarkable. UA indicative of UTI with 51-100 white blood cells, 3-5 RBCs, 2+ leuk esterase, 3+ bacteria. Urine cultures pending. Lactic is normal 1.1. EKG shows normal sinus rhythm with a rate of 77 ppm, normal AL interval, normal QRS duration, normal QTC, no ST elevations or depressions. Pending CT abdomen pelvis without contrast to evaluate for septic ureteral stone at time of sign-out to Dr. Flores. The patient was given a dose of Rocephin and a total 2 L of fluids with improvement. Her heart rate is now in the 70s. Patient care signed over by previous provider and patient was re-evaluated. Vital signs are now normal without any fever, tachycardia normal blood pressure. Her CT scan shows unchanged bilateral renal calculi measuring up to 7 mm. Right perinephric stranding consistent with her urinary tract infection findings. No hydronephrosis is seen, no obstructing kidney stones. Cholelithiasis is seen as well as multiple incidental nodules found in the bilateral lungs unchanged from prior scan in 2023. Unchanged multiple renal cysts, periumbilical hernia with fat containing loops of bowel same from prior study, degenerative changes of the spine. Patient is currently on Rocephin for antibiotics and will be sent home with prescription medications to control her urinary tract infection with early pyelonephritis. Patient is hemodynamically stable and comfortable with the plan. Patient discharged home with antibiotics and return precautions. <Gilson Flores MD - Last Filed: 01/12/25 05:53> Medical Records Attestation: I reviewed the patient's medical records. <Gilson Flores MD - Last Filed: 01/12/25 05:53> Lab Data Attestation: I reviewed the patient's lab results. <Gilson Flores MD - Last Filed: 01/12/25 05:53> Result diagrams: 01/12/25 00:28 01/12/25 00:28 <Emilee Lofton PA-C - Last Filed: 01/12/25 02:15> Labs: Lab Results 01/11/25 01/12/25 01/12/25 Range/Units 21:53 00:28 02:21 WBC 7.7 (4.5-10.0) K/mm3 RBC 4.33 (4.2-5.4) M/mm3 Hgb 11.9 L (12.0-15.0) g/dL Hct 38.5 (37.0-47.0) % MCV 88.9 (80-100) fl MCH 27.5 (26-34) pg MCHC 30.9 L (32-36) g/dl RDW 14.7 H (11.5-14.5) % Plt Count 166 (150-375) k/mm3 MPV 11.5 H (7.4-10.4) fl Immature Gran % (Auto) 1.8 H (0-0.5) % Neut % (Auto) 73.4 H (45.5-73.1) % Lymph % (Auto) 12.1 L (18.3-44.2) % [place] % (Auto) 12.4 H (2.6-8.5) % Eos % (Auto) 0.0 (0-4.4) % Baso % (Auto) 0.3 (0.2-1.2) % Lymph # (Auto) 0.93 (0.9-3.2) K/mm3 [place] # (Auto) 1.0 H (0.1-0.6) K/mm3 Eos # (Auto) 0.0 (0-0.3) K/mm3 Baso # (Auto) 0.0 (0.0-0.1) K/mm3 Abs Immat Gran (auto) 0.14 H (0.00-0.031) K/mm3 Absolute Neuts (auto) 5.6 (1.3-6.7) K/mm3 Absolute Nucleated RBC 0.000 (0.0-0.012) K/mm3 Nucleated RBC % 0.0 (0.0-0.2) % Sodium 140 (137-145) mmol/L Potassium 3.7 (3.4-5.0) mmol/L Chloride 100 (98-107) mmol/L Carbon Dioxide 32 H (22-30) mmol/L Anion Gap 8 (4-12) mmol/L BUN 17 (7-17) mg/dL Creatinine 0.79 (0.7-1.0) mg/dL Estim Creat Clear Calc 73 ml/min Estimated GFR > 60 (59 - ) Glucose 117 H (65-110) mg/dL Lactic Acid 1.1 (0.7-2.0) mmol/L Calcium 9.4 (8.4-10.2) mg/dL Total Bilirubin 1.0 (0.2-1.3) mg/dL AST 29 (14-36) U/L ALT 20 (6-35) U/L Alkaline Phosphatase 52 (38-126) U/L Total Protein 7.3 (6.3-8.2) g/dL Albumin 4.0 (3.5-5.1) g/dL Lipase 90 (23-300) U/L Urine Color Yellow (Yellow) Urine Appearance Cloudy H (Clear) Urine pH 7.5 (5.0-9.0) Ur Specific [place] 1.024 (1.001-1.035) Urine Protein 1+ H (Negative) mg/dL Urine Glucose (UA) Negative (Negative) mg/dL Urine Ketones Trace H (Negative) mg/dL Ur Blood (Man) Negative (Negative) Urine Nitrate Negative (Negative) Urine Bilirubin Negative (Negative) Urine Urobilinogen 1.0 (<2.0) mg/dL Leukocyte Esterase Rfl 2+ H (Negative) JEROME/UL Urine RBC 3-5 H (0-2) /hpf Urine WBC 51-100 H (0-3) /hpf Ur Squamous Epith Cells Occasional (Few) /hpf Urine Bacteria 3+ H /hpf Urine Casts 0-2 Influenza A (RT-PCR) Negative (Negative) Influenza B (RT-PCR) Negative (Negative) RSV (RT-PCR) Negative (Negative) SARS-CoV-2 RNA (RT-PCR) Negative (Negative) <Emilee Lofton PA-C - Last Filed: 01/12/25 02:15> Lab Results 01/11/25 01/12/25 01/12/25 Range/Units 21:53 00:28 02:21 WBC 7.7 (4.5-10.0) K/mm3 RBC 4.33 (4.2-5.4) M/mm3 Hgb 11.9 L (12.0-15.0) g/dL Hct 38.5 (37.0-47.0) % MCV 88.9 (80-100) fl MCH 27.5 (26-34) pg MCHC 30.9 L (32-36) g/dl RDW 14.7 H (11.5-14.5) % Plt Count 166 (150-375) k/mm3 MPV 11.5 H (7.4-10.4) fl Immature Gran % (Auto) 1.8 H (0-0.5) % Neut % (Auto) 73.4 H (45.5-73.1) % Lymph % (Auto) 12.1 L (18.3-44.2) % [place] % (Auto) 12.4 H (2.6-8.5) % Eos % (Auto) 0.0 (0-4.4) % Baso % (Auto) 0.3 (0.2-1.2) % Lymph # (Auto) 0.93 (0.9-3.2) K/mm3 [place] # (Auto) 1.0 H (0.1-0.6) K/mm3 Eos # (Auto) 0.0 (0-0.3) K/mm3 Baso # (Auto) 0.0 (0.0-0.1) K/mm3 Abs Immat Gran (auto) 0.14 H (0.00-0.031) K/mm3 Absolute Neuts (auto) 5.6 (1.3-6.7) K/mm3 Absolute Nucleated RBC 0.000 (0.0-0.012) K/mm3 Nucleated RBC % 0.0 (0.0-0.2) % Sodium 140 (137-145) mmol/L Potassium 3.7 (3.4-5.0) mmol/L Chloride 100 (98-107) mmol/L Carbon Dioxide 32 H (22-30) mmol/L Anion Gap 8 (4-12) mmol/L BUN 17 (7-17) mg/dL Creatinine 0.79 (0.7-1.0) mg/dL Estim Creat Clear Calc 73 ml/min Estimated GFR > 60 (59 - ) Glucose 117 H (65-110) mg/dL Lactic Acid 1.1 (0.7-2.0) mmol/L Calcium 9.4 (8.4-10.2) mg/dL Total Bilirubin 1.0 (0.2-1.3) mg/dL AST 29 (14-36) U/L ALT 20 (6-35) U/L Alkaline Phosphatase 52 (38-126) U/L Total Protein 7.3 (6.3-8.2) g/dL Albumin 4.0 (3.5-5.1) g/dL Lipase 90 (23-300) U/L Urine Color Yellow (Yellow) Urine Appearance Cloudy H (Clear) Urine pH 7.5 (5.0-9.0) Ur Specific [place] 1.024 (1.001-1.035) Urine Protein 1+ H (Negative) mg/dL Urine Glucose (UA) Negative (Negative) mg/dL Urine Ketones Trace H (Negative) mg/dL Ur Blood (Man) Negative (Negative) Urine Nitrate Negative (Negative) Urine Bilirubin Negative (Negative) Urine Urobilinogen 1.0 (<2.0) mg/dL Leukocyte Esterase Rfl 2+ H (Negative) JEROME/UL Urine RBC 3-5 H (0-2) /hpf Urine WBC 51-100 H (0-3) /hpf Ur Squamous Epith Cells Occasional (Few) /hpf Urine Bacteria 3+ H /hpf Urine Casts 0-2 Influenza A (RT-PCR) Negative (Negative) Influenza B (RT-PCR) Negative (Negative) RSV (RT-PCR) Negative (Negative) SARS-CoV-2 RNA (RT-PCR) Negative (Negative) <Gilson Flores MD - Last Filed: 01/12/25 05:53> Imaging Data Attestation: I personally reviewed and interpreted this imaging study as follows: < Gilson Flores MD - Last Filed: 01/12/25 05:53> My impression: Unchanged renal calculi without any obstruction, no hydronephrosis, unchanged nodules in the lungs. <Gilson Flores MD - Last Filed: 01/12/25 05:53> Discharge Plan Discharge Clinical Impression: Acute pyelonephritis <Emilee Lofton PA-C - Last Filed: 01/12/25 02:15> Patient Disposition: Home <GET Rosario Last Filed: 01/12/25 02:15> Condition: Stable <Emilee Lofton PA-C - Last Filed: 01/12/25 02:15> Instructions: Antibiotic Form, Kidney Infection (ED) <Emilee Lofton PA-C - Last Filed: 01/12/25 02:15> Additional Instructions: You were evaluated in the emergency department for concerns for urinary tract infection. I sent antibiotics to the pharmacy for a kidney infection. Please take these as directed. Please take advised her on as needed for nausea and vomiting. Drink plenty fluids plan follow-up closely with her primary care provider. Return to the emergency department if you are unable to keep down food or fluids, you develop worsening or changing abdominal pain, flank pain, uncontrollable fever or other concerning symptoms. <Emilee Lofton PA-C - Last Filed: 01/12/25 02:15> Patient Language: Gibraltarian <GET Rosario Last Filed: 01/12/25 02:15> Prescriptions: New cefpodoxime 200 mg tablet 200 mg PO BID Qty: 20 0RF Rx Instructions: must administer with a meal/food ondansetron 4 mg tablet,disintegrating 4 mg PO Q8H Qty: 14 0RF No Action insulin degludec [Tresiba U-100 Insulin] 100 unit/mL solution 36 unit SUBCUT DAILY Rx Instructions: QAM Fiasp U-100 Insulin 100 unit/mL solution 9 unit subcut TIDWM pravastatin 40 mg tablet 40 mg PO QHS ascorbic acid (vitamin C) [Vitamin C] 1,000 mg Tablet 1 g PO DAILY vitamin A-vitamin C-vit E-min Tablet 1 tablet DAILY aspirin 81 mg Capsule 162 mg PO DAILY davon root extract 1 tab-cap DAILY phenazopyridine [Pyridium] 200 mg tablet 200 mg PO TID PRN (Reason: pain) Qty: 30 0RF omeprazole 20 mg capsule,delayed release(DR/EC) 20 mg PO DAILY Qty: 90 3RF potassium citrate [Urocit-K 10] 10 mEq (1,080 mg) tablet extended release 20 meq PO DAILY Qty: 180 3RF losartan 50 mg tablet 50 mg PO DAILY Qty: 90 3RF hydrochlorothiazide 25 mg tablet 25 mg PO DAILY Qty: 90 3RF alprazolam 0.5 mg tablet 0.5 mg PO TID PRN (Reason: anxiety) Qty: 90 5RF clobetasol 0.05 % cream 1 applic topical BID PRN (Reason: rash) Qty: 45 1RF Rx Instructions: apply for up to 2 weeks at a time. hydrocodone-acetaminophen 5-325 mg tablet 1 tablet PO Q6H PRN (Reason: pain) Qty: 20 0RF <Emilee Lofton PA-C - Last Filed: 01/12/25 02:15> Follow-up/Referrals: Daren Zamarripa MD [Primary Care Provider] - 3 Days (ER follow-up) <Emilee Lofton PA-C - Last Filed: 01/12/25 02:15> Time of Disposition: 02:55 <Emilee Lofton PA-C - Last Filed: 01/12/25 02:15> 02:55 <Gilson Flores MD - Last Filed: 01/12/25 05:53>
[2025-01-12 00:38] LABS: Hematocrit 38.5 % (37.0-47.0); Hemoglobin 11.9 g/dL (12.0-15.0); Immature Granulocyte Percent A 1.8 % (0-0.5); Lymphocytes Absolute Auto 0.93 K/mm3 (0.9-3.2); Mean Corpuscular HGB Conc 30.9 g/dl (32-36); Mean Corpuscular Hemoglobin 27.5 pg (26-34); Mean Corpuscular Volume 88.9 fl (80-100); Nucleated Red Blood Cells Absolute Auto 0.000 K/mm3 (0.0-0.012); Nucleated Red Blood Cells Perc 0.0 % (0.0-0.2); Platelet Count Result 166 k/mm3 (150-375); Red Blood Count 4.33 M/mm3 (4.2-5.4); White Blood Count 7.7 K/mm3 (4.5-10.0)
[2025-01-12] MEDS: ACETAMINOPHEN 500 MG TABLET 1000 MG PO (00:38)
[2025-01-12 00:51] LABS: Alanine Aminotransferase 20 U/L (6-35); Albumin Level 4.0 g/dL (3.5-5.1); Alkaline Phosphatase 52 U/L (38-126); Anion Gap 8 mmol/L (4-12); Aspartate Amino Transferase 29 U/L (14-36); Bilirubin,Total 1.0 mg/dL (0.2-1.3); Blood Urea Nitrogen 17 mg/dL (7-17); Calcium 9.4 mg/dL (8.4-10.2); Carbon Dioxide 32 mmol/L (22-30); Chloride 100 mmol/L (98-107); Estimated CRCL calculation 73 ml/min; Estimated Glomerular Filt Rate > 60; Glucose 117 mg/dL (65-110); Lipase 90 U/L (23-300); Potassium 3.7 mmol/L (3.4-5.0); Sodium 140 mmol/L (137-145); Total Protein 7.3 g/dL (6.3-8.2)
[2025-01-12] MEDS: SODIUM CHLORIDE 0.9% IV 1,000 ML 999 ML IV CONT ×2 (01:14→01:16)
[2025-01-12] MEDS: ONDANSETRON INJ 4 MG/2 ML VIAL IV PUSH (01:28)
[2025-01-12 02:21] VITALS: BP 136/72; PULSE 70; RESP 18; TEMP 37.1; O2SAT 95
[2025-01-12 03:03] LABS: Influenza A QL RT-PCR Negative (Negative); Influenza B QL RT-PCR Negative (Negative); RSV RNA, RT-PCR Negative (Negative); SARS-CoV-2 RNA PCR Negative (Negative)
== END 2025-01-12 03:09 | disposition home or self-care (01) ==
PROVIDERS: Emergency Provider Physician Assistant; PCP Family Medicine
DX: N10 Acute pyelonephritis (principal); Z20.822 Contact with and (suspected) exposure to COVID-19; E11.9 Type 2 diabetes mellitus without complications; E66.01 Morbid (severe) obesity due to excess calories; Z68.41 Body mass index [BMI] 40.0-44.9, adult; I10 Essential (primary) hypertension; I87.2 Venous insufficiency (chronic) (peripheral); M19.042 Primary osteoarthritis, left hand; M19.041 Primary osteoarthritis, right hand; K21.9 Gastro-esophageal reflux disease without esophagitis; Z86.16 Personal history of COVID-19; Z87.442 Personal history of urinary calculi; Z87.891 Personal history of nicotine dependence; I44.4 Left anterior fascicular block; R94.31 Abnormal electrocardiogram [ECG] [EKG]; Z79.4 Long term (current) use of insulin; Z79.82 Long term (current) use of aspirin
CPT/HCPCS: 36415; 71045; 74176; 80053; 81001; 83605; 83690; 85025; 87040; 87086; 87186; 87637; 93005; 96365; 96366; 96375; 99284; A9270; J0696; J2405; J7030

== ENCOUNTER 2025-01-24 16:39 | Outpatient (CLI) | payer MEDICARE, SELFPAY ==
--- OUTSIDE RECORDS SUMMARY | 2025-01-24 16:42 | XMS_ITS | Clinical Summary ---
Author Organization [facility] Address [address] [place] [address] Care Team Providers Care Geochemist Name Role Phone Unavailable Primary Care Provider Unavailabl e Source Comments [facility],non-owned Affiliates and Associated Physician Practices is amultiple site organization consisting of ambulatory clinics and hospital sitesin [place], [place], [place] and [place]. This disclosure is being madepursuant to the Care Everywhere program and may not contain all information available regarding this patient. 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 Gender Identity Not on file Sexual Orientation [...] MEDICARE AWV CALENDAR YEAR 2024 INFLUENZA VACCINE (#1) 2025 Respiratory Syncytial Virus (RSV) Vaccine Pt: [...] Patient Date of Phone Billing Address Personal/Family [address] [place], [place] [id number] [employer] MEDICARE ADV SELF PAY NO INSURANCE Member Subscriber Plan / Payer (Ef fective for All Dates) Name:Kassie Flores Member ID:Not on file Relation to Subscriber:Not on file Name:KASSIE FLORES Subscriber ID:Not on file Address: [address] [place], [place] [phone] Payer ID:Not on file Group ID:Not on file Type:Self Pay Address: [place], [place] * Guarantor: KASSIE FLORES Account Type Relation to Patient Date of Phone Billing Address Personal/Family [address] [place], [place] [id number] [employer] MEDICARE ADV SELF PAY NO INSURANCE Member Subscriber Plan / Payer (Ef fective for All Dates) Name:Kassie Flores Member ID:Not on file Relation to Subscriber:Not on file Name:KASSIE FLORES Subscriber ID:Not on file Address: [address] [place] [id number] Payer ID:Not on file Group ID:Not on file Type:Self Pay Address: [place], [place] * Guarantor: KASSIE FLORES Account Type Relation to Patient Date of Phone Billing Address Personal/Family [address] [place] [phone] [employer] MED[employer]ARE ADV SELF PAY NO INSURANCE Member Subscriber Plan / Payer (Ef fective for All Dates) Name:Kassie Flores Member ID:Not on file Relation to Subscriber:Not on file Name:KASSIE FLORES Subscriber ID:Not on file Address: [address] [place] [phone] Payer ID:Not on file Group ID:Not on file Type:Self Pay Address: [place], [place]
--- OUTSIDE RECORDS SUMMARY | 2025-01-24 16:42 | XMS_ITS | Encounter Summary ---
Author Organization [facility] Healthcare Address [address] [place] [address] Care Team Providers Care Media Relations Director Name Role Phone Daren Zamarripa MD Primary Care Provider [phone] Encounter Details Date Type Department Care Team (Late st Contact Info) Description 01/13/2025 Results Follow-Up [facility] at [address] [id number] Thania Crowley NP [address] [place] [address] [address] [place] [address] Urine culture Urine, clean voided Social History Tobacco Use Types Packs/Day Years Used Date Smoking Tobacco: Former Comments Unknown Sex and Gender Information Value Date Recorded Sex Assigned at Not on file 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 documented in this encounter Plan of Treatment Not on file documented as of this encounter Visit Diagnoses Not on filedocumented in this encounter Care Teams Media Relations Director Relationship Specialty Start Date End Date Daren Zamarripa MD [address] [address] PCP - General Family Medicine 03/28/22 documented as of this encounter
--- OUTSIDE RECORDS SUMMARY | 2025-01-24 16:42 | XMS_ITS | Continuity of Care Document ---
Author Organization [facility] Address [address] [place] [address] Phone Care Team Providers Care Picc Nurse Name Role Phone Will MATA, MS, Jacob Unavailable Unavailable Medications Medication Instructions Dosage Effective Dates (start - stop) Status Comments No Drug Therapy Prescribed Advance Directives Directive Yes / No Effective Date File Name No Information Encounters Encounter Description Practice Location Reason(s) For Visit Diagnoses Date Provider Providers Copied on Encounter [facility], [address] [place] [address], [facility], tel:[phone] [facility] No Information Will James. [address] [place] [address], [facility], [place]. tel:[phone] Family History Family Member Type Diagnosis Age At Onset No Information Payers Payer name Insurance type Covered democrat ID Authoriza tion(s) No Information Social History Type Description Quantity Date Captured Comments Sex Female Smoking Status No Information Chief Complaint And Reason For Visit No Information History Of Present Illness Encounter Date Complaint History Of Prese nt Illness No Information Medications Administered Medication Instructions Dosage Effective Dates (start - stop) Status Comments No Drug Therapy Prescribed Instructions Date Instruction Additional Infor mation No Information Assessments Type Assessment Date No Information
--- OUTSIDE RECORDS SUMMARY | 2025-01-24 16:42 | XMS_ITS | Continuity of Care Document ---
Author Organization [facility] Address [address] [place] [address] Phone Care Team Providers Care Boomswing Operator Name Role Phone Jasper MCNEIL MD, Adi Unavailable Unavailable Procedures Procedure Date CTA, W/o Contrast, Calcium Scoring, Tech nical CTA, W/o Contrast, Calcium Scoring, Inte rp Echo, Complete, Interp Advance Directives Directive Yes / No Effective Date File Name No Information Encounters Encounter Description Practice Location Reason(s) For Visit Diagnoses Date Provider Providers Copied on Encounter Cardiov[facility]cul [facility], [address], [place], [address], tel:[phone] DX Aysha CVM Pure hypercholeste rolemia, unspecifiedEs sential (primary) hypertension Jasper Joshi. [facility], [address], [place], [place], [id number], [place]. tel:[phone] Referring Provider: Gerard parada, [facility] [address], [place], [address]. tel:[phone] Cardi[facility], [address], [place], [address], [place] tel:[phone] DX Varela CVM No Information Nura Brionest. [facility], [address], [place], [place], [id number], [place]. tel:[phone] Referring Provider: Gerard parada, [facility] [address], [place], [address]. tel:[phone] Cardiovascul ar Medicine [facility], [address], [place], [address], [place] tel:[phone] [facility] No Information 201 [address] Johnnie Carvalho. [facility] , [address], [place], [place], [id number], [place]. tel:[phone] Referring Provider: Gerard parada, [facility] [address], [place], [address]. tel:[phone] Family History Family Member Type Diagnosis Age At Onset No Information Payers Payer name Insurance type Covered republican ID Authoriza tion(s) Medicare [place] MB [id number] [employer] CI [id number] Social History Type Description Quantity Date Captured Comments Sex Female Smoking Status No Information Chief Complaint And Reason For Visit No Information Reason For Referral Reason For Referral No Information Plan Of Treatment Date Type Action Status Future Order: Radiology Order CT Calcium Score (CT), Appointment on: , Collected on: Ordered History Of Present Illness Encounter Date Complaint History Of Prese nt Illness No Information Functional Status Date Functional Assessmen t No Information Instructions Date Instruction Additional Infor mation No Information Assessments Type Assessment Date No Information Patient Care Teams Name Effective Dates (start - stop) Status Members No Information
--- OUTSIDE RECORDS SUMMARY | 2025-01-24 16:43 | XMS_ITS | Clinical Summary ---
Author Organization [facility] Address [address] [place] [address] Care Team Providers Care Building Insulation Installer Name Role Phone Daren Zamarripa MD Primary Care Provider [phone] Allergies Active Allergy Reactions Criticality Noted Date [...] device Assessment & Plan (09/03/2024 1:52 PM WOOD HACKER): Continuous glucose monitor (cgm) applied from 08/21/2024 to 09/03/2024 This device was placed for monitor and treatment of blood sugar. Interpretation of data- average glucose 181, 51% time in range. 49% hyperglycemia. 0 hypoglycemia Assessment & Plan (05/21/2024 12:41 PM WOOD HACKER): Continuous glucose monitor (cgm) applied from 05/08 to 05/21/2024 This device was placed for monitor and treatment of blood sugar. Interpretation of data- average glucose 268, 11% time in range. 89% hyperglycemia. 0 hypoglycemia Hypertension associated with type 2 diabetes kennedy litus 11/01/2023 Assessment & Plan (05/21/2024 12:38 PM WOOD HACKER): This is a chronic condition which is [...] 11/10/2022 Assessment & Plan (05/21/2024 12:39 PM WOOD HACKER): This is a chronic condition which continues [...] sessions. Assessment & Plan (06/28/2023 11:38 AM WOOD HACKER): This is a chronic condition which is improving 5 lb weight loss since last office visit Has stopped eating bread and not keeping ice cream in the house Encouraged additional weight loss and exercise Assessment & Plan (06/28/2023 11:37 AM WOOD HACKER): >>ASSESSMENT AND PLAN FOR BODY MASS INDEX 40.0-44.9, ADULT ([facility]) ([facility]) WRITTEN ON 11/10/2022 4:12 PM BY VIRIDIANA FAUSTIN NP This is a chronic condition. She has lost 52 lb over the last 2 years She declined the use of GLP 1 as she is afraid of side effects Assessment & Plan (06/28/2023 11:37 AM WOOD HACKER): >>ASSESSMENT AND PLAN FOR BODY MASS INDEX 40.0-44.9, ADULT ([facility]) ([facility]) WRITTEN ON 02/13/2023 12:26 PM BY VIRIDIANA FAUSTIN, RIANA This is a chronic condition which is worsening 10 lb weight gain since last office visit Discussed the importance eating healthy Ambulatory referral to diabetes education/nutritional counseling Encouraged increased activity Type 2 diabetes mellitus wit hout complication, with long-term current use of insulin 11/05/2020 Assessment & Plan (05/21/2024 12:38 PM WOOD HACKER): This is a chronic condition which is [...] hydrochlorothiazide Assessment & Plan (06/28/2023 11:35 AM WOOD HACKER): This is a chronic condition which is [...] No history of macrovascular disease - CVA, [place]. Hyperlipidemia associated with type 2 diabetes valeria hansen 11/05/2020 Assessment & Plan (05/21/2024 12:39 PM WOOD HACKER): This is a chronic condition which is [...] prescribed. Assessment & Plan (06/28/2023 11:35 AM WOOD HACKER): This is a chronic condition which is [...] Encounters Date Type Department Care Team Description 01/13/2025 Results Follow-Up [facility] at [address] [address] Thania Crowley NP Urine culture Urine, clean voided 01/11/2025 7:15 PM CDT - 01/11/2025 11:59 PM CDT Hospital Encounter [address] [address] Frequency of urination Discharge Disposition: Discharge to home or self care 01/11/2025 6:00 PM CDT Office Visit [facility] at [address] [phone] Hawa Chino NP Frequency of urination (Primary Dx) 01/09/[address] [facility] Diabetes [facility]ocrine [facility] at [address] [place] [address] Viridiana Faustin DEVELOPMENT AND HOUSING DIRECTOR from Last 3 Months Medical History Medical [...] on file Legal Sex Female 8:21 AM WOOD HACKER Gender Identity Not on file Sexual Orientation [...] (244 lb 9.6 oz) 09/03/2024 1:10 PM WOOD HACKER Height 162.6 cm (5' 4) 09/03/2024 1:10 PM WOOD HACKER Body Mass Index 41.99 09/03/2024 1:10 PM WOOD HACKER Plan of Treatment Health Maintenance Due Date [...] Procedure Name Priority Date/Time Associated Diagnosis Comments URINE CULTURE Routine 01/11/2025 7:23 PM CDT Frequency of urination POCT URINALYSIS DIPSTICK Routine 01/11/2025 5:34 PM CDT Frequency of urination POCT HEMOGLOBIN A1C Routine 09/03/2024 1 :16 PM WOOD HACKER Type 2 diabetes mellitus without complication, with long-term current use of insulin (HCC) EGFR Routine 05/21/2024 11:51 AM WOOD HACKER Type 2 diabetes mellitus with hyperglycemia, without long-term current use of insulin (HCC) LIPID PANEL Routine 05/21/2024 11:51 AM WOOD HACKER Type 2 diabetes mellitus with hyperglycemia, without long-term current use of insulin (HCC) ALBUMIN CREATININE RATIO, URINE Routine 05/21/2024 11:51 AM WOOD HACKER Type 2 diabetes mellitus with hyperglycemia, without long-term current use of insulin (HCC) DIABETIC EYE EXAM Routine 03/16/2023 from Last 3 Months or Most Recently Relevant to Health Maintenance Results * (ABNORMAL) Urine culture Urine, clean voided (01/11/2025 7:23 PM CDT) Report Final Report: Greater than or equal to 100,000 colonies/mL of Escherichia coli Plus growth of clinically insignificant bacterial cady. (.) Comment:Testing performed by : [facility], [address], [place]., [address] Organism ESCHERICHIA COLI VELIA Organism PLUS GROWTH OF CLINICALLY INSIGNIFICANT CADY. VELIA MARIA Urine, clean voided 01/11/2025 7:23 PM CDT 01/11/2025 9:56 PM CDT Narrative VELIA - 01/13/2025 4:33 PM CDT Testing performed by [facility] ([phone]) Organism Antibiotic Method Susceptibility Escherichia coli Ampicillin INTERPRETATION Resistant Escherichia coli Cefazolin INTERPRETATION Susceptible Escherichia coli Nitrofurantoin INTERPRETATION Susceptible Escherichia coli Gentamicin INTERPRETATION Susceptible Escherichia coli Trimethoprim with Sulfamethoxazole IN TERPRETATION Resistant Escherichia coli Meropenem INTERPRETATION Susceptible Escherichia coli Cefepime INTERPRETATION Susceptible Escherichia coli Ciprofloxacin INTERPRETATION Susceptible Escherichia coli Ceftazidime INTERPRETATION Susceptible Escherichia coli Ceftriaxone INTERPRETATION Susceptible Escherichia coli Piperacillin/Tazobactam INTERPRETATIO N Susceptible Escherichia coli Cephalexin INTERPRETATION Susceptible Escherichia coli Cefuroxime-axetil INTERPRETATION Susceptible Escherichia coli Cefdinir INTERPRETATION Susceptible Hawa Chino NP LAB MICROBIOLOGY - GENERAL ORD ERABLES Final Result VELIA [address] Department [place] [address] * (ABNORMAL) POCT urinalysis dipstick (01/11/2025 5:34 PM CDT) Color, Urine, POC Yellow Clarity, ur, POC Clear Clear Glucose, ur, POC Negative Negative Bilirubin, ur, POC Negative Negative Ketones, ur, POC Trace(A) Negative Specific [place], POC 1.025 1.003 - 1.030 Blood, ur, POC Negative Negative pH, ur, POC 6.0 5.0 - 8.0 Protein, ur, POC 100.(A) Negative Urobilinogen, urine, POC 1.0 0.2 - 1.0 mg/dL Nitrite, ur, POC Positive(A) Negative Leukocytes, ur, POC Small(A) Negative Lot Number [id number] Urine 01/11/2025 5:34 PM CDT Hawa Chion NP POINT OF CARE TEST ORDERABLES Final Result * POCT hemoglobin A1c (09/03/2024 1:16 PM WOOD HACKER) Pathologist [facility] Hemoglobin A1C, POC 6.8 4.0 - 5.6 % Blood 09/03/2024 1:16 PM WOOD HACKER Viridiana Faustin NP POINT OF CARE TEST ORDERABLES F inal Result * eGFR (05/21/2024 11:51 AM WOOD HACKER) Pathologist [facility] eGFR >90 >=60 mL/min/1. [...] reviewed 2021. Blood 05/21/2024 11:5 1 AM WOOD HACKER 05/21/2024 8:13 PM WOOD HACKER Viridiana Faustin NP LAB BLOOD ORDERABLES Final Resu lt VELIA [address] Department [place] [address] * Albumin Creatinine Ratio, Urine (05/21/2024 11:51 AM WOOD HACKER) Pathologist [facility] Albumin Ur <12.0 mg/L Comment: Interpretive Data No reference range established. Current interpretive data was last revised 2018. Creatinine Ur 26.3 mg/dL VELIA MARIA Comment: Interpretive Data No reference range established. Current interpretive data was last revised 2018. Albumin Creatinine Ratio, Ur See Comment 1 - 29 VELIA MARIA Comment:Unable to calculate Urine 05/21/2024 11:5 1 AM WOOD HACKER 05/21/2024 8:11 PM WOOD HACKER us Viridiana Faustin NP LAB URINE ORDERABLES Final Resu lt VELIA MARIA [address] [place] [address] * (ABNORMAL) Lipid panel (05/21/2024 11:51 AM WOOD HACKER) Cholesterol 225(H) 30 - 199 mg/dL Comment: [...] NCEP Expert Panel. Circulation 2004;110:227 3. Jack M et al. NORMAN Cardiol. 2020 November 07;5(5):540-548. doi: 10.1001/jamacardio.2020.0013 Current Interpretive Data was last revised on 2024. Non-HDL Cholesterol 163 mg/dL VELIA Comment: Interpretive Data Ages < [...] 4 VELIA Blood 05/21/2024 11:5 1 AM WOOD HACKER 05/21/2024 8:11 PM WOOD HACKER Narrative VELIA MARIA - 05/21/2024 9:30 PM WOOD HACKER These lab test should be done fasting. This means do not eat or drink for at least 12 hours prior to getting your blood drawn. Viridiana Faustin NP LAB BLOOD ORDERABLES Final Resu lt VELIA [address] [address] Department [place] [address] * Diabetic Eye Exam (03/16/2023) Historical Provider MD HEALTH MAINTENANCE Final Result from Last 3 Months or Most Recently Relevant to Health Maintenance Insurance [facility] MEDICARE GOLD TNA MEDICARE GOLD Care Teams Building Insulation Installer Relationship Specialty Start Date End Date Daren Zamarripa MD [address] [address] PCP - General Family Medicine 03/28/22
--- OUTSIDE RECORDS SUMMARY | 2025-01-24 16:43 | XMS_ITS | Patient Health Record ---
Author Organization [facility] Address [address] [place] [address] Care Team Providers Care Senior Cost Accountant Name Role Phone Asa White Unavailable [phone] Reason For Referral No Information Medications Medication SIG (Take, Route, Frequency, Duration) Notes Start Date End Date Status ALPRAZolam 0.5 MG Oral 03/22/2021 A ctive DULoxetine HCl 30 MG Oral 03/22/2021 Active HYDROcodone-Acetaminophen 5-325 MG Oral 03/22/2021 Active Omeprazole *Pick strength-form from [employer] for eRX* 03/22/2021 Active Clobetasol Propionate 0.05% External 03/22/2021 Active Tresiba FlexTouch 100 UNIT/ML Subcutaneous 03/22/2021 Active hydroCHLOROthiazide 25 MG Oral 03/22/2021 Active metFORMIN HCl ER 500 MG Oral 03/22/2021 Active Potassium Citrate ER 10 mEq Oral *Pick strength-form from [employer] for eRX* 03/22/2021 Active Xpovvela-Vckvgpkws-MI 3.5-37675-3 Otic 03/22/2021 Active Clotrimazole-Betamethasone 1-0.05 % External 03/22/2021 Active Azithromycin 250 MG Oral 03/22/2021 Active Sulfamethoxazole-Trimethop rim 800-160 MG Oral 03/22/2021 Active Losartan Potassium 50 MG Oral 03/22/2021 Active Plan Of Treatment No Information Insurance Providers Payer Name Payer Address Payer Phone Subscriber Number Group Number Insured Name Patient Relationship to Insured Coverage Start Date Coverage End Date [facility] Ppo [address] [place] [address] [id number] MATIAS FLORES Self - patient is the insured Medical (General) History Surgical History Surgery Date(Month/Year) Hysterectomy ([id number]) 07/10/2017
--- OUTSIDE RECORDS SUMMARY | 2025-01-24 16:43 | XMS_ITS | Referral Summary ---
Author Organization [facility] A Address [address] [place] [address] Care Team Providers Care Siebel Administrator Name Role Phone Daren Zamarripa MD Primary Care Provider [phone] Encounters Date Type Department Care Team Description 01/13/2025 Results Follow-Up [facility] at [address] [address] Thania Crowley NP Urine culture Urine, clean voided 01/11/2025 7:15 PM CDT - 01/11/2025 11:59 PM CD[place] [address] Frequency of urination Discharge Disposition: Discharge to home or self care 01/11/2025 6:00 PM CDT Office Visit [facility] at [address] [address] Hawa Chino NP Frequency of urination (Primary Dx) 01/09/2025 Telephone [facility] Endocrine [facility] at [address] [place] [address] Viridiana Faustin NP from Last 3 Months Allergies Active Allergy [...] Ultra-Fine Connie Pen Needle) 32 gauge x 32 needleIndication s:Type 2 diabetes mellitus with hyperglycemia, without long-term current use of insulin (HCC) Use as directed 100 each 5 1 Active sertraline (ZOLOFT) 50 mg tablet Take 1 tablet (50 mg total) by mouth daily 3 Active blood glucose diagnostic (glucose blood) stripIndications :Type 2 diabetes mellitus with hyperglycemia, without long-term current use of insulin ([facility]) Check blood sugar 3x times a day or as directed. E11.65 300 each 3 3 Active lancets miscIndications: Type 2 diabetes mellitus with hyperglycemia, without long-term current use of insulin ([facility]) 1 each by other route 3 (three) [...] hyperglycemia, without long-term current use of insulin ([facility]) Use 2 times daily for monitoring of blood sugar for diabetes. E11.65 1 kit 4 Active HYDROcodone-acet aminophen (NORCO) 5-325 mg per tablet Take by mouth every 6 (six) hours as needed 4 Active Janumet XR 100-1,000 mg tablet, ER multiphase 24 hrIndications:Ty pe 2 diabetes mellitus with hyperglycemia, without long-term current use of insulin ([facility]) TAKE ONE TABLET BY MOUTH EVERY DAY [...] device Assessment & Plan (09/03/2024 1:52 PM FIREARMS MODEL MAKER): Continuous glucose monitor (cgm) applied from 08/21/2024 to 09/03/2024 This device was placed for monitor and treatment of blood sugar. Interpretation of data- average glucose 181, 51% time in range. 49% hyperglycemia. 0 hypoglycemia Assessment & Plan (05/21/2024 12:41 PM FIREARMS MODEL MAKER): Continuous glucose monitor (cgm) applied from 05/08 to 05/21/2024 This device was placed for monitor and treatment of blood sugar. Interpretation of data- average glucose 268, 11% time in range. 89% hyperglycemia. 0 hypoglycemia Hypertension associated with type 2 diabetes kennedy litus 11/01/2023 Assessment & Plan (05/21/2024 12:38 PM FIREARMS MODEL MAKER): This is a chronic condition which is [...] 11/10/2022 Assessment & Plan (05/21/2024 12:39 PM FIREARMS MODEL MAKER): This is a chronic condition which continues [...] sessions. Assessment & Plan (06/28/2023 11:38 AM FIREARMS MODEL MAKER): This is a chronic condition which is improving 5 lb weight loss since last office visit Has stopped eating bread and not keeping ice cream in the house Encouraged additional weight loss and exercise Assessment & Plan (06/28/2023 11:37 AM FIREARMS MODEL MAKER): >>ASSESSMENT AND PLAN FOR BODY MASS INDEX 40.0-44.9, ADULT ([facility]) ([facility]) WRITTEN ON 11/10/2022 4:12 PM BY VIRIDIANA FAUSTIN NP This is a chronic condition. She has lost 52 lb over the last 2 years She declined the use of GLP 1 as she is afraid of side effects Assessment & Plan (06/28/2023 11:37 AM FIREARMS MODEL MAKER): >>ASSESSMENT AND PLAN FOR BODY MASS INDEX 40.0-44.9, ADULT ([facility]) ([facility]) WRITTEN ON 02/13/2023 12:26 PM BY VIRIDIANA FAUSTIN NP This is a chronic condition which is worsening 10 lb weight gain since last office visit Discussed the importance eating healthy Ambulatory referral to diabetes education/nutritional counseling Encouraged increased activity Type 2 diabetes mellitus wit hout complication, with long-term current use of insulin 11/05/2020 Assessment & Plan (05/21/2024 12:38 PM FIREARMS MODEL MAKER): This is a chronic condition which is [...] hydrochlorothiazide Assessment & Plan (06/28/2023 11:35 AM FIREARMS MODEL MAKER): This is a chronic condition which is [...] 11/05/2020 Assessment & Plan (05/21/2024 12:39 PM FIREARMS MODEL MAKER): This is a chronic condition which is [...] prescribed. Assessment & Plan (06/28/2023 11:35 AM FIREARMS MODEL MAKER): This is a chronic condition which is [...] on file Legal Sex Female 8:21 AM FIREARMS MODEL MAKER Gender Identity Not on file Sexual Orientation [...] (244 lb 9.6 oz) 09/03/2024 1:10 PM FIREARMS MODEL MAKER Height 162.6 cm (5' 4) 09/03/2024 1:10 PM FIREARMS MODEL MAKER Body Mass Index 41.99 09/03/2024 1:10 PM FIREARMS MODEL MAKER Plan of Treatment Not on file Procedures Procedure Name Priority Date/Time Associated Diagnosis Comments URINE CULTURE Routine 01/11/2025 7:23 PM CDT Frequency of urination POCT URINALYSIS DIPSTICK Routine 01/11/2025 5:34 PM CDT Frequency of urination POCT HEMOGLOBIN A1C Routine 09/03/2024 1 :16 PM FIREARMS MODEL MAKER Type 2 diabetes mellitus without complication, with long-term current use of insulin ([facility]) EGFR Routine 05/21/2024 11:51 AM FIREARMS MODEL MAKER Type 2 diabetes mellitus with hyperglycemia, without long-term current use of insulin (HCC) LIPID PANEL Routine 05/21/2024 11:51 AM FIREARMS MODEL MAKER Type 2 diabetes mellitus with hyperglycemia, without long-term current use of insulin (HCC) ALBUMIN CREATININE RATIO, URINE Routine 05/21/2024 11:51 AM FIREARMS MODEL MAKER Type 2 diabetes mellitus with hyperglycemia, without long-term current use of insulin ([facility]) DIABETIC EYE EXAM Routine 03/16/2023 from Last 3 Months or Most Recently Relevant to Health Maintenance Results * (ABNORMAL) Urine culture Urine, clean voided (01/11/2025 7:23 PM CDT) Report Final Report: Greater than or equal to 100,000 colonies/mL of Escherichia coli Plus growth of clinically insignificant bacterial cady. (.) Comment:Testing performed by : [facility], [address] [place]., [address] Organism ESCHERICHIA COLI [facility] Organism PLUS GROWTH OF CLINICALLY INSIGNIFICANT CADY. [facility] Urine, clean voided 01/11/2025 7:23 PM CDT 01/11/2025 9:56 PM CDT Narrative VELIA - 01/13/2025 4:33 PM CDT Testing performed by [facility] Microbiology Laboratory ([phone]) Organism Antibiotic Method Susceptibility Escherichia coli Ampicillin [...] - GENERAL ORD ERABLES Final Result VELIA [address] Department [place] [address] * (ABNORMAL) POCT urinalysis dipstick (01/11/2025 5:34 PM CDT) Color, Urine, POC Yellow Clarity, ur, POC Clear Clear Glucose, ur, POC Negative Negative Bilirubin, ur, POC Negative Negative Ketones, ur, POC Trace(A) Negative Specific Tracy, POC 1.025 1.003 - 1.030 Blood, ur, POC Negative Negative pH, ur, POC 6.0 5.0 - 8.0 Protein, ur, POC 100.(A) Negative Urobilinogen, urine, POC 1.0 0.2 - 1.0 mg/dL Nitrite, ur, POC Positive(A) Negative Leukocytes, ur, POC Small(A) Negative Lot Number [id number] Urine 01/11/2025 5:34 PM CDT Hawa Chino PHYSICAL THERAPY AIDE POINT OF CARE TEST ORDERABLES Final Result * POCT hemoglobin A1c (09/03/2024 1:16 PM FIREARMS MODEL MAKER) Hemoglobin A1C, POC 6.8 4.0 - 5.6 % Blood 09/03/2024 1:16 PM FIREARMS MODEL MAKER Viridiana Faustin PHYSICAL THERAPY AIDE POINT OF CARE TEST ORDERABLES F inal Result * eGFR (05/21/2024 11:51 AM FIREARMS MODEL MAKER) eGFR >90 >=60 mL/min/1. 73 m2 Comment: [...] reviewed 2021. Blood 05/21/2024 11:5 1 AM FIREARMS MODEL MAKER 05/21/2024 8:13 PM FIREARMS MODEL MAKER Viridiana Faustin PHYSICAL THERAPY AIDE LAB BLOOD ORDERABLES Final Resu lt Performing Organization Address [facility] de Phone Number VELIA MARIA [address] [address] [facility] [employer] [place] [address] * Albumin Creatinine Ratio, Urine (05/21/2024 11:51 AM FIREARMS MODEL MAKER) Albumin Ur <12.0 mg/L Comment: Interpretive Data No reference range established. Current interpretive data was last revised 2018. Creatinine Ur 26.3 mg/dL VELIA Comment: Interpretive Data No reference range established. Current interpretive data was last revised 2018. Albumin Creatinine Ratio, Ur See Comment 1 - 29 VELIA Comment:Unable to calculate Urine 05/21/2024 11:5 1 AM FIREARMS MODEL MAKER 05/21/2024 8:11 PM FIREARMS MODEL MAKER Viridiana Faustin PHYSICAL THERAPY AIDE LAB URINE ORDERABLES Final Resu lt Performing Organization Address [facility] de Phone Number VELIA MARIA [address] [address] [facility] [employer] [place] [address] * (ABNORMAL) Lipid panel (05/21/2024 11:51 AM FIREARMS MODEL MAKER) Cholesterol 225(H) 30 - 199 mg/dL Comment: [...] NCEP Expert Panel. Circulation 2004;110:227 3. Jack Smith al. NORMAN Cardiol. 2020 November 07;5(5):540-548. doi: [...] 4 VELIA Blood 05/21/2024 11:5 1 AM FIREARMS MODEL MAKER 05/21/2024 8:11 PM FIREARMS MODEL MAKER Narrative VELIA - 05/21/2024 9:30 PM FIREARMS MODEL MAKER These lab test should be done fasting. This means do not eat or drink for at least 12 hours prior to getting your blood drawn. us Viridiana Faustin NP LAB BLOOD ORDERABLES Final Resu lt VELIA [address] [address] Department [place] [address] * Diabetic Eye Exam (03/16/2023) Historical Provider HEALTH MAINTENANCE Final Result from Last 3 Months or Most Recently Relevant to Health Maintenance Insurance AETNA MEDICARE GOLD AETNA MEDICARE GOLD Care Teams Siebel Administrator Relationship Specialty Start Date End Date Daren Zamarripa MD [address] [address] PCP - General Family Medicine 03/28/22
[2025-01-24 17:21] LABS: Add Urine Microscopic? YES; Appearance Urine Clear (Clear); Glucose Urine UA Negative (Negative); Leukocyte Esterase Ur 2+ LEU/UL (Negative); Nitrate Urine Negative (Negative); Non Pathogenic Casts 0-2; Specific Grav Ur 1.014 (1.001-1.035)
== END 2025-01-24 16:40 | disposition home or self-care (01) ==
PROVIDERS: PCP Family Medicine; Visit Provider Family Medicine
DX: N39.0 Urinary tract infection, site not specified (principal)
CPT/HCPCS: 81001; 87086

== ENCOUNTER 2025-02-01 10:55 | Outpatient (CLI) | payer MEDICARE, SELFPAY ==
--- OUTSIDE RECORDS SUMMARY | 2025-02-01 10:59 | XMS_ITS | Clinical Summary ---
Author Organization [facility] Address [address] [place] [address] Care Team Providers Care Food Services Coordinator Name Role Phone Unavailable Primary Care Provider Unavailabl e Source Comments [facility],non-owned Affiliates and Associated Physician Practices is amultiple site organization consisting of ambulatory clinics and hospital sitesin [place], [place], [place] and [place]. This disclosure is being madepursuant to the Care Everywhere program and may not contain all information available regarding this patient. 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 Gender Identity Not on file Sexual Orientation [...] Patient Date of Phone Billing Address Personal/Family [address] [place], [place] [phone] AENA MEDICARE ADV SELF PAY NO INSURANCE Member Subscriber Plan / Payer (Ef fective for All Dates) Name:Kassie Flores Member ID:Not on file Relation to Subscriber:Not on file Name:KASSIE FLORES Subscriber ID:Not on file Address: [address] [place], [place] [address] Payer ID:Not on file Group ID:Not on file Type:Self Pay Address: [place], [place] * Guarantor: KASSIE FLORES Account Type Relation to Patient Date of Phone Billing Address Personal/Family [address] [place], [place] [id number] AENA MEDICARE ADV SELF PAY NO INSURANCE Member Subscriber Plan / Payer (Ef fective for All Dates) Name:Kassie Flores Member ID:Not on file Relation to Subscriber:Not on file Name:KASSIE FLORES Subscriber ID:Not on file Address: [address] [place] [phone] Payer ID:Not on file Group ID:Not on file Type:Self Pay Address: [place], [place] * Guarantor: KASSIE FLORES Account Type Relation to Patient Date of Phone Billing Address Personal/Family [address] [place] [phone] AETNA MEDICARE ADV SELF PAY NO INSURANCE Member Subscriber Plan / Payer (Ef fective for All Dates) Name:Kassie Flores Member ID:Not on file Relation to Subscriber:Not on file Name:KASSIE FLORES Subscriber ID:Not on file Address: [address] [place] [phone] Payer ID:Not on file Group ID:Not on file Type:Self Pay Address: [place], [place]
--- OUTSIDE RECORDS SUMMARY | 2025-02-01 10:59 | XMS_ITS | Continuity of Care Document ---
Author Organization [facility] Address [address] [place] [address] Phone Care Team Providers Care Mural Artist Name Role Phone Will MATA, MS, Jacob Unavailable Unavailable Medications Medication Instructions Dosage Effective Dates (start - stop) Status Comments No Drug Therapy Prescribed Advance Directives Directive Yes / No Effective Date File Name No Information Encounters Encounter Description Practice Location Reason(s) For Visit Diagnoses Date Provider Providers Copied on Encounter [facility], [address] [place] [address], [facility], tel:[phone] [facility] No Information Will James. [address] [place] [address], [facility], [place]. tel:[phone] Family History Family Member Type Diagnosis Age At Onset No Information Payers Payer name Insurance type Covered constitution party ID Authoriza tion(s) No Information Social History [...]
--- OUTSIDE RECORDS SUMMARY | 2025-02-01 10:59 | XMS_ITS | Encounter Summary ---
Author Organization [facility] Healthcare Address [address] [place] [address] Care Team Providers Care Slip Presser Name Role Phone Daren Zamarripa MD Primary Care Provider [phone] Encounter Details Date Type Department Care Team (Late st Contact Info) Description 01/13/2025 Results Follow-Up [facility] at [address] [address] Thania Crowley NP [address] [place] [address] [address] [place] [address] Urine culture Urine, clean voided Social History Tobacco Use Types Packs/Day Years Used Date Smoking Tobacco: Former Comments Unknown Sex and Gender Information Value Date Recorded Sex Assigned at Not on file 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
--- OUTSIDE RECORDS SUMMARY | 2025-02-01 11:00 | XMS_ITS | Continuity of Care Document ---
Author Organization [facility] Address [address] [place] [address] Phone Care Team Providers Care Accounting Reconciliation Clerk Name Role Phone Jasper MCNEIL MD, Adi Unavailable Unavailable Procedures Procedure Date CTA, W/o Contrast, Calcium Scoring, Tech nical CTA, W/o Contrast, Calcium Scoring, Inte rp Echo, Complete, Interp Advance Directives Directive Yes / No Effective Date File Name No Information Encounters Encounter Description Practice Location Reason(s) For Visit Diagnoses Date Provider Providers Copied on Encounter Cardiovascul ar [facility], [address], [place], [address], tel:[phone] DX Aysha CVM Pure hypercholeste rolemia, unspecifiedEs sential (primary) hypertension Jasper Joshi. [facility], [address], [place], [place], [id number], [place]. tel:[phone] Referring Provider: Gerard parada, [facility] [address], [place], [address]. tel:[phone] [facility], [address], [place], [address], [place] tel:[phone] DX Varela CVM No Information Nura Brionest. [facility], [address], [place], [place], [id number], [place]. tel:[phone] Referring Provider: Gerard parada, [facility] [address], [place], [address]. tel:[phone] [facility], [address], [place], [address], [place] tel:[phone] [facility] No Information [address] Johnnie Carvalho. [facility] , [address], [place], [place], [id number], [place]. tel:[phone] Referring Provider: Gerard parada, [facility] [address], [place], [address]. tel:[phone] Family History Family Member Type Diagnosis Age At Onset No Information Payers Payer name Insurance type Covered libertarian ID Authoriza tion(s) Medicare [place] [id number] [employer] [id number] Social History Type Description Quantity Date Captured [...]
--- OUTSIDE RECORDS SUMMARY | 2025-02-01 11:00 | XMS_ITS | Patient Health Record ---
Author Organization [facility] Address [address] [place] [address] Care Team Providers Care Grades 6 Through 8 Teacher Name Role Phone Asa White Unavailable [phone] Reason For Referral No Information Medications Medication SIG (Take, Route, Frequency, Duration) Notes Start Date End Date Status ALPRAZolam 0.5 MG Oral 03/22/2021 A ctive DULoxetine HCl 30 MG Oral 03/22/2021 Active HYDROcodone-Acetaminophen 5-325 MG Oral 03/22/2021 Active Omeprazole *Pick strength-form from [employer] for eRX* 03/22/2021 Active Clobetasol Propionate 0.05% External 03/22/2021 Active Tresiba FlexTouch 100 UNIT/ML Subcutaneous 03/22/2021 Active hydroCHLOROthiazide 25 MG Oral 03/22/2021 Active metFORMIN HCl ER 500 MG Oral 03/22/2021 Active Potassium Citrate ER 10 mEq Oral *Pick strength-form from [employer] for eRX* 03/22/2021 Active Qkjbuwdx-Zzjevlbmu-AP 3.5-92630-1 Otic 03/22/2021 Active Clotrimazole-Betamethasone 1-0.05 % External 03/22/2021 Active Azithromycin 250 MG Oral 03/22/2021 Active Sulfamethoxazole-Trimethop rim 800-160 MG Oral 03/22/2021 Active Losartan Potassium 50 MG Oral 03/22/2021 Active Plan Of Treatment No Information Insurance Providers Payer Name Payer Address Payer Phone Subscriber Number Group Number Insured Name Patient Relationship to Insured Coverage Start Date Coverage End Date [facility] [address] [place] [address] [id number] MATIAS FLORES Self - patient is the insured Medical (General) History Surgical History Surgery Date(Month/Year) Hysterectomy ([id number]) 07/10/2017
--- OUTSIDE RECORDS SUMMARY | 2025-02-01 11:00 | XMS_ITS | Referral Summary ---
Author Organization [facility] Building A Address [address] [place] [address] Care Team Providers Care Piano Professor Name Role Phone Daren Zamarripa MD Primary Care Provider [phone] Encounters Date Type Department Care Team Description 01/13/2025 Results Follow-Up [facility] at [address] [address] Thania Crowley NP Urine culture Urine, clean voided 01/11/2025 7:15 PM CDT - 01/11/2025 11:59 PM [place] [address] Frequency of urination Discharge Disposition: Discharge to home or self care 01/11/2025 6:00 PM CDT Office Visit [facility] at [address] [address] Hawa Chino NP Frequency of urination (Primary Dx) 01/09/2025 Telephone [facility] Diabetes Endocrine Care at [address] [place] [address] Viridiana Faustin NP from Last 3 [...] hyperglycemia, without long-term current use of insulin ([facility]) Check blood sugar 3x times a day or as directed. E11.65 300 each 3 3 Active lancets miscIndications: Type 2 diabetes mellitus with hyperglycemia, without long-term current use of insulin ([facility]) 1 each by other route [...] hyperglycemia, without long-term current use of insulin ([facility]) Use 2 times daily for monitoring of blood sugar for diabetes. E11.65 1 kit 4 Active HYDROcodone-acet aminophen (NORCO) 5-325 mg per tablet Take by mouth every 6 (six) hours as needed 4 Active Janumet XR 100-1,000 mg tablet, ER multiphase 24 hrIndications:Ty pe 2 diabetes mellitus with hyperglycemia, without long-term current use of insulin ([facility]) TAKE ONE TABLET BY MOUTH [...] device Assessment & Plan (09/03/2024 1:52 PM LABORATORY MANAGER): Continuous glucose monitor (cgm) applied from 08/21/2024 to 09/03/2024 This device was placed for monitor and treatment of blood sugar. Interpretation of data- average glucose 181, 51% time in range. 49% hyperglycemia. 0 hypoglycemia Assessment & Plan (05/21/2024 12:41 PM LABORATORY MANAGER): Continuous glucose monitor (cgm) applied from 05/08 to 05/21/2024 This device was placed for monitor and treatment of blood sugar. Interpretation of data- average glucose 268, 11% time in range. 89% hyperglycemia. 0 hypoglycemia Hypertension associated with type 2 diabetes kennedy litus 11/01/2023 Assessment & Plan (05/21/2024 12:38 PM LABORATORY MANAGER): This is a chronic condition which is [...] 11/10/2022 Assessment & Plan (05/21/2024 12:39 PM LABORATORY MANAGER): This is a chronic condition which continues [...] sessions. Assessment & Plan (06/28/2023 11:38 AM LABORATORY MANAGER): This is a chronic condition which is improving 5 lb weight loss since last office visit Has stopped eating bread and not keeping ice cream in the house Encouraged additional weight loss and exercise Assessment & Plan (06/28/2023 11:37 AM LABORATORY MANAGER): >>ASSESSMENT AND PLAN FOR BODY MASS INDEX 40.0-44.9, ADULT ([facility]) ([facility]) WRITTEN ON 11/10/2022 4:12 PM BY VIRIDIANA FAUSTIN NP This is a chronic condition. She has lost 52 lb over the last 2 years She declined the use of GLP 1 as she is afraid of side effects Assessment & Plan (06/28/2023 11:37 AM LABORATORY MANAGER): >>ASSESSMENT AND PLAN FOR BODY MASS INDEX 40.0-44.9, ADULT ([facility]) ([facility]) WRITTEN ON 02/13/2023 12:26 PM BY VIRIDIANA FAUSTIN NP This is a chronic condition which is worsening 10 lb weight gain since last office visit Discussed the importance eating healthy Ambulatory referral to diabetes education/nutritional counseling Encouraged increased activity Type 2 diabetes mellitus wit hout complication, with long-term current use of insulin 11/05/2020 Assessment & Plan (05/21/2024 12:38 PM LABORATORY MANAGER): This is a chronic condition which is [...] hydrochlorothiazide Assessment & Plan (06/28/2023 11:35 AM LABORATORY MANAGER): This is a chronic condition which is [...] 11/05/2020 Assessment & Plan (05/21/2024 12:39 PM LABORATORY MANAGER): This is a chronic condition which is [...] prescribed. Assessment & Plan (06/28/2023 11:35 AM LABORATORY MANAGER): This is a chronic condition which is [...] on file Legal Sex Female 8:21 AM LABORATORY MANAGER Gender Identity Not on file Sexual Orientation [...] (244 lb 9.6 oz) 09/03/2024 1:10 PM LABORATORY MANAGER Height 162.6 cm (5' 4) 09/03/2024 1:10 PM LABORATORY MANAGER Body Mass Index 41.99 09/03/2024 1:10 PM LABORATORY MANAGER Plan of Treatment Not on file Procedures Procedure Name Priority Date/Time Associated Diagnosis Comments URINE CULTURE Routine 01/11/2025 7:23 PM CDT Frequency of urination POCT URINALYSIS DIPSTICK Routine 01/11/2025 5:34 PM CDT Frequency of urination POCT HEMOGLOBIN A1C Routine 09/03/2024 1 :16 PM LABORATORY MANAGER Type 2 diabetes mellitus without complication, with long-term current use of insulin ([facility]) EGFR Routine 05/21/2024 11:51 AM LABORATORY MANAGER Type 2 diabetes mellitus with hyperglycemia, without long-term current use of insulin (HCC) LIPID PANEL Routine 05/21/2024 11:51 AM LABORATORY MANAGER Type 2 diabetes mellitus with hyperglycemia, without long-term current use of insulin (HCC) ALBUMIN CREATININE RATIO, URINE Routine 05/21/2024 11:51 AM LABORATORY MANAGER Type 2 diabetes mellitus with hyperglycemia, without long-term current use of insulin ([facility]) DIABETIC EYE EXAM Routine 03/16/2023 from Last 3 Months or Most Recently Relevant to Health Maintenance Results * (ABNORMAL) Urine culture Urine, clean voided (01/11/2025 7:23 PM CDT) Report Final Report: Greater than or equal to 100,000 colonies/mL of Escherichia coli Plus growth of clinically insignificant bacterial cady. (.) Comment:Testing performed by : [facility], [address] [place]., [address] Organism ESCHERICHIA COLI [facility] Organism PLUS GROWTH OF CLINICALLY INSIGNIFICANT CADY. [facility] Urine, clean voided 01/11/2025 7:23 PM CDT 01/11/2025 9:56 PM CDT Narrative VELIA - 01/13/2025 4:33 PM CDT Testing performed by [facility] Microbiology Laboratory ([phone]) Organism Antibiotic Method Susceptibility Escherichia coli Ampicillin [...] - GENERAL ORD ERABLES Final Result VELIA [address] [address] Department [place] [address] * (ABNORMAL) POCT urinalysis dipstick (01/11/2025 5:34 PM CDT) Color, Urine, POC Yellow Clarity, ur, POC Clear Clear Glucose, ur, POC Negative Negative Bilirubin, ur, POC Negative Negative Ketones, ur, POC Trace(A) Negative Specific [place], POC 1.025 1.003 - 1.030 Blood, ur, POC Negative Negative pH, ur, POC 6.0 5.0 - 8.0 Protein, ur, POC 100.(A) Negative Urobilinogen, urine, POC 1.0 0.2 - 1.0 mg/dL Nitrite, ur, POC Positive(A) Negative Leukocytes, ur, POC Small(A) Negative Lot Number [id number] Urine 01/11/2025 5:34 PM CDT Hawa Chino TAPE FOLDING MACHINE OPERATOR POINT OF CARE TEST ORDERABLES Final Result * POCT hemoglobin A1c (09/03/2024 1:16 PM LABORATORY MANAGER) Hemoglobin A1C, POC 6.8 4.0 - 5.6 % Blood 09/03/2024 1:16 PM LABORATORY MANAGER Viridiana Faustin TAPE FOLDING MACHINE OPERATOR POINT OF CARE TEST ORDERABLES F inal Result * eGFR (05/21/2024 11:51 AM LABORATORY MANAGER) eGFR >90 >=60 mL/min/1. 73 m2 Comment: [...] reviewed 2021. Blood 05/21/2024 11:5 1 AM LABORATORY MANAGER 05/21/2024 8:13 PM LABORATORY MANAGER Viridiana Faustin TAPE FOLDING MACHINE OPERATOR LAB BLOOD ORDERABLES Final Resu lt Performing Organization Address [facility] de Phone Number VELIA MARIA [id number] [address] [facility] [place] [address] * Albumin Creatinine Ratio, Urine (05/21/2024 11:51 AM LABORATORY MANAGER) Albumin Ur <12.0 mg/L Comment: Interpretive Data No reference range established. Current interpretive data was last revised 2018. Creatinine Ur 26.3 mg/dL VELIA Comment: Interpretive Data No reference range established. Current interpretive data was last revised 2018. Albumin Creatinine Ratio, Ur See Comment 1 - 29 VELIA Comment:Unable to calculate Urine 05/21/2024 11:5 1 AM LABORATORY MANAGER 05/21/2024 8:11 PM LABORATORY MANAGER Viridiana Faustin TAPE FOLDING MACHINE OPERATOR LAB URINE ORDERABLES Final Resu lt Performing Organization Address [facility] de Phone Number VELIA MARIA [address] [address] [facility] [place] [address] * (ABNORMAL) Lipid panel (05/21/2024 11:51 AM LABORATORY MANAGER) Cholesterol 225(H) 30 - 199 mg/dL Comment: [...] 4 VELIA Blood 05/21/2024 11:5 1 AM LABORATORY MANAGER 05/21/2024 8:11 PM LABORATORY MANAGER Narrative VELIA - 05/21/2024 9:30 PM LABORATORY MANAGER These lab test should be done fasting. This means do not eat or drink for at least 12 hours prior to getting your blood drawn. us Viridiana Faustin NP LAB BLOOD ORDERABLES Final Resu lt VELIA [address] [address] [place] [address] * Diabetic Eye Exam (03/16/2023) Historical Provider HEALTH MAINTENANCE Final Result from Last 3 Months or Most Recently Relevant to Health Maintenance Insurance [employer] MEDICARE GOLD AETNA MEDICARE GOLD Care Teams Piano Professor Relationship Specialty Start Date End Date Daren Zamarripa MD [address] [address] PCP - General Family Medicine 03/28/22
--- OUTSIDE RECORDS SUMMARY | 2025-02-01 11:00 | XMS_ITS | Clinical Summary ---
Author Organization [facility] Medical Office Building A Address [address] [place] [address] Care Team Providers Care Plant Floor Automation Manager Name Role Phone Daren Zamarripa MD Primary Care Provider [phone] Allergies Active Allergy Reactions Criticality Noted Date [...] device Assessment & Plan (09/03/2024 1:52 PM HEALTH POLICY MANAGER): Continuous glucose monitor (cgm) applied from 08/21/2024 to 09/03/2024 This device was placed for monitor and treatment of blood sugar. Interpretation of data- average glucose 181, 51% time in range. 49% hyperglycemia. 0 hypoglycemia Assessment & Plan (05/21/2024 12:41 PM HEALTH POLICY MANAGER): Continuous glucose monitor (cgm) applied from 05/08 to 05/21/2024 This device was placed for monitor and treatment of blood sugar. Interpretation of data- average glucose 268, 11% time in range. 89% hyperglycemia. 0 hypoglycemia Hypertension associated with type 2 diabetes kennedy litus 11/01/2023 Assessment & Plan (05/21/2024 12:38 PM HEALTH POLICY MANAGER): This is a chronic condition which [...] 11/10/2022 Assessment & Plan (05/21/2024 12:39 PM HEALTH POLICY MANAGER): This is a chronic condition which [...] sessions. Assessment & Plan (06/28/2023 11:38 AM HEALTH POLICY MANAGER): This is a chronic condition which is improving 5 lb weight loss since last office visit Has stopped eating bread and not keeping ice cream in the house Encouraged additional weight loss and exercise Assessment & Plan (06/28/2023 11:37 AM HEALTH POLICY MANAGER): >>ASSESSMENT AND PLAN FOR BODY MASS INDEX 40.0-44.9, ADULT ([facility]) ([facility]) WRITTEN ON 11/10/2022 4:12 PM BY VIRIDIANA FAUSTIN NP This is a chronic condition. She has lost 52 lb over the last 2 years She declined the use of GLP 1 as she is afraid of side effects Assessment & Plan (06/28/2023 11:37 AM HEALTH POLICY MANAGER): >>ASSESSMENT AND PLAN FOR BODY MASS INDEX 40.0-44.9, ADULT ([facility]) ([facility]) WRITTEN ON 02/13/2023 12:26 PM BY VIRIDIANA FAUSTIN, RIANA This is a chronic condition which is worsening 10 lb weight gain since last office visit Discussed the importance eating healthy Ambulatory referral to diabetes education/nutritional counseling Encouraged increased activity Type 2 diabetes mellitus wit hout complication, with long-term current use of insulin 11/05/2020 Assessment & Plan (05/21/2024 12:38 PM HEALTH POLICY MANAGER): This is a chronic condition which [...] hydrochlorothiazide Assessment & Plan (06/28/2023 11:35 AM HEALTH POLICY MANAGER): This is a chronic condition which [...] No history of macrovascular disease - [place], [place]. Hyperlipidemia associated with type 2 diabetes valeria hansen 11/05/2020 Assessment & Plan (05/21/2024 12:39 PM HEALTH POLICY MANAGER): This is a chronic condition which [...] prescribed. Assessment & Plan (06/28/2023 11:35 AM HEALTH POLICY MANAGER): This is a chronic condition which [...] Department Care Team Description 01/13/2025 Results Follow-Up [facility] at [address] [address] Thania Crowley NP Urine culture Urine, clean voided 01/11/2025 7:15 PM CDT - 01/11/2025 11:59 PM CDT Hospital Encounter [address] [address] Frequency of urination Discharge Disposition: Discharge to home or self care 01/11/2025 6:00 PM CDT Office Visit [facility] at [address] [phone] Hawa Chino NP Frequency of urination (Primary Dx) 01/09/2025 Telephone [facility] Diabetes Endocrine Care at [address] [place] [address] Viridiana Faustin LANDSCAPE MANAGEMENT TECHNICIAN from Last 3 Months Medical History Medical [...] on file Legal Sex Female 8:21 AM HEALTH POLICY MANAGER Gender Identity Not on file Sexual [...] (244 lb 9.6 oz) 09/03/2024 1:10 PM HEALTH POLICY MANAGER Height 162.6 cm (5' 4) 09/03/2024 1:10 PM HEALTH POLICY MANAGER Body Mass Index 41.99 09/03/2024 1:10 PM HEALTH POLICY MANAGER Plan of Treatment Health Maintenance Due Date [...] HEMOGLOBIN A1C Routine 09/03/2024 1 :16 PM HEALTH POLICY MANAGER Type 2 diabetes mellitus without complication, with long-term current use of insulin (HCC) EGFR Routine 05/21/2024 11:51 AM HEALTH POLICY MANAGER Type 2 diabetes mellitus with hyperglycemia, without long-term current use of insulin (HCC) LIPID PANEL Routine 05/21/2024 11:51 AM HEALTH POLICY MANAGER Type 2 diabetes mellitus with hyperglycemia, without long-term current use of insulin (HCC) ALBUMIN CREATININE RATIO, URINE Routine 05/21/2024 11:51 AM HEALTH POLICY MANAGER Type 2 diabetes mellitus with hyperglycemia, [...] bacterial cady. (.) Comment:Testing performed by : [facility], [address] [facility], [place]., [address] Organism ESCHERICHIA COLI VELIA Organism PLUS GROWTH OF CLINICALLY INSIGNIFICANT CADY. VELIA MARIA Urine, clean voided 01/11/2025 7:23 PM CDT 01/11/2025 9:56 PM CDT Narrative VELIA - 01/13/2025 4:33 PM CDT Testing performed by [facility] Microbiology Laboratory ([phone]) Organism Antibiotic Method Susceptibility Escherichia coli Ampicillin [...] - GENERAL ORD ERABLES Final Result VELIA [address] [address] Department [place] [address] * (ABNORMAL) POCT urinalysis dipstick (01/11/2025 5:34 PM CDT) Color, Urine, POC Yellow Clarity, ur, POC Clear Clear Glucose, ur, POC Negative Negative Bilirubin, ur, POC Negative Negative Ketones, ur, POC Trace(A) Negative Specific [place], POC 1.025 1.003 - 1.030 Blood, ur, POC Negative Negative pH, ur, POC 6.0 5.0 - 8.0 Protein, ur, POC 100.(A) Negative Urobilinogen, urine, POC 1.0 0.2 - 1.0 mg/dL Nitrite, ur, POC Positive(A) Negative Leukocytes, ur, POC Small(A) Negative Lot Number [id number] Urine 01/11/2025 5:34 PM CDT Hawa Chino NP POINT OF CARE TEST ORDERABLES Final Result * POCT hemoglobin A1c (09/03/2024 1:16 PM HEALTH POLICY MANAGER) Pathologist [facility] Hemoglobin A1C, POC 6.8 4.0 - 5.6 % Blood 09/03/2024 1:16 PM HEALTH POLICY MANAGER Viridiana Faustin NP POINT OF CARE TEST ORDERABLES F inal Result * eGFR (05/21/2024 11:51 AM HEALTH POLICY MANAGER) Pathologist [facility] eGFR >90 >=60 mL/min/1. 73 m2 Comment: [...] reviewed 2021. Blood 05/21/2024 11:5 1 AM HEALTH POLICY MANAGER 05/21/2024 8:13 PM HEALTH POLICY MANAGER Viridiana Faustin NP LAB BLOOD ORDERABLES Final Resu lt VELIA [address] [address] Department [place] [address] * Albumin Creatinine Ratio, Urine (05/21/2024 11:51 AM HEALTH POLICY MANAGER) Pathologist [facility] Albumin Ur <12.0 mg/L Comment: Interpretive Data No reference range established. Current interpretive data was last revised 2018. Creatinine Ur 26.3 mg/dL VELIA MARIA Comment: Interpretive Data No reference range established. Current interpretive data was last revised 2018. Albumin Creatinine Ratio, Ur See Comment 1 - 29 VELIA MARIA Comment:Unable to calculate Urine 05/21/2024 11:5 1 AM HEALTH POLICY MANAGER 05/21/2024 8:11 PM HEALTH POLICY MANAGER us Viridiana Faustin NP LAB URINE ORDERABLES Final Resu lt VELIA MARIA [address] [address] Department [place] [address] * (ABNORMAL) Lipid panel (05/21/2024 11:51 AM HEALTH POLICY MANAGER) Cholesterol 225(H) 30 - 199 mg/dL [...] 4 VELIA Blood 05/21/2024 11:5 1 AM HEALTH POLICY MANAGER 05/21/2024 8:11 PM HEALTH POLICY MANAGER Narrative VELIA MARIA - 05/21/2024 9:30 PM HEALTH POLICY MANAGER These lab test should be done fasting. This means do not eat or drink for at least 12 hours prior to getting your blood drawn. Viridiana Faustin NP LAB BLOOD ORDERABLES Final Resu lt VELIA [id number] [address] Department [place] [address] * Diabetic Eye Exam (03/16/2023) Historical Provider MD HEALTH MAINTENANCE Final Result from Last 3 Months or Most Recently Relevant to Health Maintenance Insurance [facility] MEDICARE GOLD TNA MEDICARE GOLD Care Teams Plant Floor Automation Manager Relationship Specialty Start Date End Date Daren Zamarripa MD [id number] [address] PCP - General Family Medicine 03/28/22
== END 2025-02-01 10:56 | disposition home or self-care (01) ==
PROVIDERS: PCP Family Medicine; Visit Provider Family Medicine
DX: N39.0 Urinary tract infection, site not specified (principal)
CPT/HCPCS: 87086

== ENCOUNTER 2025-02-18 16:26 | Outpatient (CLI) | payer MEDICARE, SELFPAY ==
[2025-02-18 17:17] LABS: Add Urine Microscopic? YES; Appearance Urine Clear (Clear); Glucose Urine UA Negative (Negative); Leukocyte Esterase Ur 1+ LEU/UL (Negative); Need Manual Microscopic Reviewed; Nitrate Urine Negative (Negative); Non Pathogenic Casts 0-2; Specific Grav Ur 1.017 (1.001-1.035)
== END 2025-02-18 16:27 | disposition home or self-care (01) ==
LOC: ANHLAB 16:29
PROVIDERS: PCP Family Medicine; Visit Provider Family Medicine
DX: N39.0 Urinary tract infection, site not specified (principal)
CPT/HCPCS: 81001; 87086

== ENCOUNTER 2025-02-25 09:46 | Outpatient (CLI) | payer MEDICARE, SELFPAY ==
--- NOTE | ~2025-02-25 | CT_ITS ---
CT Scan of the Chest without Contrast: Clinical Indication: Nonspecific abnormal finding of lung field Technique: Contiguous sections were acquired throughout the chest without intravenous contrast. Dose reduction technique was used on this scan by utilizing automated exposure control and iterative reconstruction technique. The dose-length product (DLP) was 253.76 mGy-cm. COMPARISON: 08/14/2023 Findings: There is no evidence of any significant mediastinal, hilar or axillary lymphadenopathy. The mediastinal soft tissues appear normal. There is no evidence of pleural or pericardial effusion. There are numerous pulmonary nodules scattered throughout the lungs. Largest nodule measures 2 cm in diameter in the right lower lobe (axial image 73). There are probable increased adjacent nodules in the more central right lower lobe (axial image 70), but the remainder of the numerous nodules otherwise appear largely stable. Images through the upper abdomen reveal multiple gallstones. Impression: Numerous pulmonary nodules, with focal increase of a few adjacent nodules in the right lower lobe, but the vast majority of nodules are unchanged. Reviewed, dictated and finalized at location . Impression: Numerous pulmonary nodules, with focal increase of a few adjacent nodules in th e right lower lobe, but the vast majority of nodules are unchanged.
--- NOTE | ~2025-02-25 | CT_ITS ---
EXAMINATION: CT lumbar spine w con DATE: 02/26/2025 11:09 CDT INDICATION: Abnormal findings in diagnostic imaging TECHNIQUE: Computed tomography (CT) of the lumbar spine was performed without intravenous contrast. The dose-length product was 1280.14 mGy-cm. COMPARISON: None FINDINGS: Lumbar vertebral heights are within normal limits. Minimal grade 1 anterolisthesis of L4 on L5. No compression fracture in the lumbar spine. There is a 5 mm lucency in the L3 vertebral body. Moderate joint space narrowing at the L1-L2 2 level. Mild levoconvex curvature of the lumbar spine. Evaluation of the spinal canal contents and bilateral neuroforamen is limited due to CT technique. At the L1-L2 level, there is a small concentric disc bulge causing mild narrowing of the spinal canal and mild narrowing of the bilateral neural foramen. At the L4-5 level, there is a moderate-sized broad-based disc bulge with degenerative change in the facet joints and hypertrophy of the ligamentum flavum causing moderate narrowing of the spinal canal and moderate narrowing of the bilateral neural foramen, worse on the right. At the L5-S1 level, there is a small broad-based disc bulge causing mild narrowing of the spinal canal and mild narrowing of the bilateral neuroforamen. IMPRESSION: 1. No compression fracture in the lumbar spine. 2. Minimal grade 1 anterolisthesis of L4 on L5. 3. Indeterminant 5 mm lucency in the L3 vertebral body. Consider an MRI of the lumbar spine with and without contrast for further assessment. 4. At the L1-L2 level, there is a small concentric disc bulge causing mild narrowing of the spinal canal and mild narrowing of the bilateral neural foramen. 5. At the L4-5 level, there is a moderate-sized broad-based disc bulge with degenerative change in the facet joints and hypertrophy of the ligamentum flavum causing moderate narrowing of the spinal canal and moderate narrowing of the bilateral neural foramen, worse on the right. 6. At the L5-S1 level, there is a small broad-based disc bulge causing mild narrowing of the spinal canal and mild narrowing of the bilateral neuroforamen. If symptoms persist or worsen, consider an MRI of the lumbar spine for further assessment. Reviewed, dictated and finalized at location A. IMPRESSION: 1. No compression fracture in the lumbar spine. 2. Minimal grade 1 anterolisthesis of L4 on L5. 3. Indeterminant 5 mm lucency in the L3 vertebral body. Consider an MRI of the lumbar spine with and without contrast for further assessment. 4. At the L1-L2 level, there is a small concentric disc bulge causing mild narr owing of the spinal canal and mild narrowing of the bilateral neural foramen. 5. At the L4-5 level, there is a moderate-sized broad-based disc bulge with deg enerative change in the facet joints and hypertrophy of the ligamentum flavum c ausing moderate narrowing of the spinal canal and moderate narrowing of the xochitl ateral neural foramen, worse on the right. 6. At the L5-S1 level, there is a small broad-based disc bulge causing mild carli rowing of the spinal canal and mild narrowing of the bilateral neuroforamen. If symptoms persist or worsen, consider an MRI of the lumbar spine for further assessment.
--- OUTSIDE RECORDS SUMMARY | 2025-02-25 10:06 | XMS_ITS | Encounter Summary ---
Author Organization [facility] Healthcare Address [address] [place] [address] Care Team Providers Care Organic Chemistry Professor Name Role Phone Daren Zamarripa MD Primary Care Provider [phone] Encounter Details Date Type Department Care Team (Late st Contact Info) Description 01/13/2025 Results Follow-Up [facility] Convenient Care at [address] [address] Thania Crowley NP [address] [place] [address] [address] [place] [address] Urine culture Urine, clean voided Social History Tobacco Use Types Packs/Day Years Used Date Smoking Tobacco: Former Comments Unknown Sex and Gender Information Value Date Recorded Sex Assigned at Not on file Legal Sex Female 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
--- OUTSIDE RECORDS SUMMARY | 2025-02-25 10:06 | XMS_ITS | Clinical Summary ---
Author Organization [facility] Address [address] [place] [address] Care Team Providers Care Aemt Name Role Phone Unavailable Primary Care Provider Unavailabl e Source Comments [facility],non-owned Affiliates and Associated Physician Practices is amultiple site organization consisting of ambulatory clinics and hospital sitesin [place], [place], [place] and [place]. This disclosure is being madepursuant to the Care Everywhere program and may not contain all information available regarding this patient. 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 Gender Identity Not on file Sexual Orientation [...] Patient Date of Phone Billing Address Personal/Family [address] [place], [place] [phone] [employer] MED[employer]ARE ADV SELF PAY NO INSURANCE Member Subscriber Plan / Payer (Ef fective for All Dates) Name:Kassie Flores Member ID:Not on file Relation to Subscriber:Not on file Name:KASSIE FLORES Subscriber ID:Not on file Address: [address] [place], [place] [phone] Payer ID:Not on file Group ID:Not on file Type:Self Pay Address: [place], [place] * Guarantor: KASSIE FLORES Account Type Relation to Patient Date of Phone Billing Address Personal/Family [address] [place], [place] [id number] [employer] MEDICARE ADV SELF PAY NO INSURANCE Member Subscriber Plan / Payer (Ef fective for All Dates) Name:Kassie Flores Member ID:Not on file Relation to Subscriber:Not on file Name:KASSIE FLORES Subscriber ID:Not on file Address: [address] [place] [phone] Payer ID:Not on file Group ID:Not on file Type:Self Pay Address: [place], [place] * Guarantor: KASSIE FLORES Account Type Relation to Patient Date of Phone Billing Address Personal/Family [address] [place] [phone] [employer] MED[employer]ARE ADV SELF PAY NO INSURANCE Member Subscriber Plan / Payer (Ef fective for All Dates) Name:Kassie Flores Member ID:Not on file Relation to Subscriber:Not on file Name:KASSIE FLORES Subscriber ID:Not on file Address: [address] [place] [phone] Payer ID:Not on file Group ID:Not on file Type:Self Pay Address: [place], [place]
--- OUTSIDE RECORDS SUMMARY | 2025-02-25 10:06 | XMS_ITS | Clinical Summary ---
Author Organization [facility] Medical Office Building A Address [address] [place] [address] Care Team Providers Care Roll Setter Name Role Phone Daren Zamarripa MD Primary Care Provider [phone] Allergies Active Allergy Reactions Criticality Noted Date [...] device Assessment & Plan (09/03/2024 1:52 PM REPA[employer]MENT): Continuous glucose monitor (cgm) applied from 08/21/2024 to 09/03/2024 This device was placed for monitor and treatment of blood sugar. Interpretation of data- average glucose 181, 51% time in range. 49% hyperglycemia. 0 hypoglycemia Assessment & Plan (05/21/2024 12:41 PM REPAIRER [employer]IPMENT): Continuous glucose monitor (cgm) applied from 05/08 to 05/21/2024 This device was placed for monitor and treatment of blood sugar. Interpretation of data- average glucose 268, 11% time in range. 89% hyperglycemia. 0 hypoglycemia Hypertension associated with type 2 diabetes kennedy litus 11/01/2023 Assessment & Plan (05/21/2024 12:38 PM REPAIR[employer]IPMENT): This is a chronic condition which is [...] 11/10/2022 Assessment & Plan (05/21/2024 12:39 PM REPAIRER [employer]MENT): This is a chronic condition which continues [...] sessions. Assessment & Plan (06/28/2023 11:38 AM REPAIRER [employer]IPMENT): This is a chronic condition which is improving 5 lb weight loss since last office visit Has stopped eating bread and not keeping ice cream in the house Encouraged additional weight loss and exercise Assessment & Plan (06/28/2023 11:37 AM REPAIRER [employer]ELDING EQUIPMENT): >>ASSESSMENT AND PLAN FOR BODY MASS INDEX 40.0-44.9, ADULT ([facility]) ([facility]) WRITTEN ON 11/10/2022 4:12 PM BY VIRIDIANA FAUSTIN NP This is a chronic condition. She has lost 52 lb over the last 2 years She declined the use of GLP 1 as she is afraid of side effects Assessment & Plan (06/28/2023 11:37 AM REPAIRER [employer]ELDING [employer]QUIPMENT): >>ASSESSMENT AND PLAN FOR BODY MASS INDEX 40.0-44.9, ADULT ([facility]) ([facility]) WRITTEN ON 02/13/2023 12:26 PM BY VIRIDIANA FAUSTIN, RIANA This is a chronic condition which is worsening 10 lb weight gain since last office visit Discussed the importance eating healthy Ambulatory referral to diabetes education/nutritional counseling Encouraged increased activity Type 2 diabetes mellitus wit hout complication, with long-term current use of insulin 11/05/2020 Assessment & Plan (05/21/2024 12:38 PM REPA[employer]IPMENT): This is a chronic condition which is [...] hydrochlorothiazide Assessment & Plan (06/28/2023 11:35 AM REPAIRER [employer]IPMENT): This is a chronic condition which is [...] No history of macrovascular disease - [place], [place]. Hyperlipidemia associated with type 2 diabetes valeria hansen 11/05/2020 Assessment & Plan (05/21/2024 12:39 PM REPAIR[employer]IPMENT): This is a chronic condition which is [...] prescribed. Assessment & Plan (06/28/2023 11:35 AM REPAIRER [employer]ELDING [employer]QUIPMENT): This is a chronic condition which is [...] Care Team Description 01/13/2025 Results Follow-Up [facility] at [address] [address] Thania Crowley NP Urine culture Urine, clean voided 01/11/2025 7:15 PM CDT - 01/11/2025 11:59 PM CDT Hospital Encounter [address] [address] Frequency of urination Discharge Disposition: Discharge to home or self care 01/11/2025 6:00 PM CDT Office Visit [facility] at [address] [phone] Hawa Chino NP Frequency of urination (Primary Dx) 01/09/[address] [facility] at [address] [place] [address] Viridiana Faustin SURGERY TECHNICIAN from Last 3 Months Medical History [...] on file Legal Sex Female 8:21 AM REPA[employer] Gender Identity Not on file Sexual Orientation [...] (244 lb 9.6 oz) 09/03/2024 1:10 PM RE[employer] Height 162.6 cm (5' 4) 09/03/2024 1:10 PM REPA[employer]MENT Body Mass Index 41.99 09/03/2024 1:10 PM REPA[employer] Plan of Treatment Health Maintenance Due Date [...] HEMOGLOBIN A1C Routine 09/03/2024 1 :16 PM RE[employer] Type 2 diabetes mellitus without complication, with long-term current use of insulin (HCC) EGFR Routine 05/21/2024 11:51 AM REPA[employer]IPMENT Type 2 diabetes mellitus with hyperglycemia, without long-term current use of insulin (HCC) LIPID PANEL Routine 05/21/2024 11:51 AM REPAIR[employer]IPMENT Type 2 diabetes mellitus with hyperglycemia, without long-term current use of insulin (HCC) ALBUMIN CREATININE RATIO, URINE Routine 05/21/2024 11:51 AM REPAIR[employer]IPMENT Type 2 diabetes mellitus with hyperglycemia, without [...] bacterial cady. (.) Comment:Testing performed by : [facility], [address] [facility], [place]., [address] Organism ESCHERICHIA COLI VELIA Organism PLUS GROWTH OF CLINICALLY INSIGNIFICANT CADY. VELIA MARIA Urine, clean voided 01/11/2025 7:23 PM CDT 01/11/2025 9:56 PM CDT Narrative VELIA - 01/13/2025 4:33 PM CDT Testing performed by [facility] Microbiology Laboratory ([phone]) Organism Antibiotic Method Susceptibility Escherichia coli Ampicillin [...] - GENERAL ORD ERABLES Final Result VELIA [id number] [address] Department [place] [address] * (ABNORMAL) POCT urinalysis dipstick (01/11/2025 5:34 PM CDT) Color, Urine, POC Yellow Clarity, ur, POC Clear Clear Glucose, ur, POC Negative Negative Bilirubin, ur, POC Negative Negative Ketones, ur, POC Trace(A) Negative Specific Sanders, POC 1.025 1.003 - 1.030 Blood, ur, POC Negative Negative pH, ur, POC 6.0 5.0 - 8.0 Protein, ur, POC 100.(A) Negative Urobilinogen, urine, POC 1.0 0.2 - 1.0 mg/dL Nitrite, ur, POC Positive(A) Negative Leukocytes, ur, POC Small(A) Negative Lot Number [id number] Urine 01/11/2025 5:34 PM CDT Haaw Chino NP POINT OF CARE TEST ORDERABLES Final Result * POCT hemoglobin A1c (09/03/2024 1:16 PM REPAIRER [employer]QUIPMENT) Pathologist [facility] Hemoglobin A1C, POC 6.8 4.0 - 5.6 % Blood 09/03/2024 1:16 PM REPAIRER [employer]ING [employer]QUIPMENT Viridiana Faustin NP POINT OF CARE TEST ORDERABLES F inal Result * eGFR (05/21/2024 11:51 AM REPAIRER [employer]QUIPMENT) Pathologist [facility] eGFR >90 >=60 mL/min/1. 73 m2 Comment: [...] reviewed 2021. Blood 05/21/2024 11:5 1 AM REPAIR[employer]IPMENT 05/21/2024 8:13 PM REPAIRER [employer]ELDING [employer]QUIPMENT Viridiana Faustin NP LAB BLOOD ORDERABLES Final Resu lt VELIA [address] [address] Department [place] [address] * Albumin Creatinine Ratio, Urine (05/21/2024 11:51 AM REPAIRER [employer]QUIPMENT) Pathologist [facility] Albumin Ur <12.0 mg/L Comment: Interpretive Data No reference range established. Current interpretive data was last revised 2018. Creatinine Ur 26.3 mg/dL VELIA MARIA Comment: Interpretive Data No reference range established. Current interpretive data was last revised 2018. Albumin Creatinine Ratio, Ur See Comment 1 - 29 VELIA MARIA Comment:Unable to calculate Urine 05/21/2024 11:5 1 AM REPAIRER [employer]ELDING EQUIPMENT 05/21/2024 8:11 PM REPAIRER WELDING EQUIPMENT us Viridiana Faustin NP LAB URINE ORDERABLES Final Resu lt VELIA MARIA [id number] [address] Department [place] [address] * (ABNORMAL) Lipid panel (05/21/2024 11:51 AM REPAIRER [employer]ELDING [employer]QUIPMENT) Cholesterol 225(H) 30 - 199 mg/dL Comment: [...] 4 VELIA Blood 05/21/2024 11:5 1 AM REPAIRER [employer]ELDING EQUIPMENT 05/21/2024 8:11 PM REPAIRER [employer]ELDING EQUIPMENT Narrative VELIA MARIA - 05/21/2024 9:30 PM REPAIRER [employer]ELDING EQUIPMENT These lab test should be done fasting. This means do not eat or drink for at least 12 hours prior to getting your blood drawn. Viridiana Faustin NP LAB BLOOD ORDERABLES Final Resu lt VELIA [address] [address] Department [place] [address] * Diabetic Eye Exam (03/16/2023) Historical Provider MD HEALTH MAINTENANCE Final Result from Last 3 Months or Most Recently Relevant to Health Maintenance Insurance [facility] MEDICARE GOLD TNA MEDICARE GOLD Care Teams Roll Setter Relationship Specialty Start Date End Date Daren Zamarripa MD [address] [address] PCP - General Family Medicine 03/28/22
--- OUTSIDE RECORDS SUMMARY | 2025-02-25 10:06 | XMS_ITS | Patient Health Record ---
Author Organization [facility] Address [address] [place] [address] Care Team Providers Care Piano Regulator Inspector Name Role Phone Asa White Unavailable [phone] Reason For Referral No Information Medications Medication SIG (Take, Route, Frequency, Duration) Notes Start Date End Date Status ALPRAZolam 0.5 MG Tablet Oral 03/22/2021 Active DULoxetine HCl 30 MG Capsule Delayed Release Particles Oral 03/22/2021 Active HYDROcodone-Acetaminophen 5-325 MG Tablet Oral 03/22/2021 Active Omeprazole *Pick strength-form from [employer] for eRX* 03/22/2021 Active Clobetasol Propionate 0.05% Cream External 03/22/2021 Active Tresiba FlexTouch 100 UNIT/ML Solution Pen-injector Subcutaneous 03/22/2021 Active hydroCHLOROthiazide 25 MG Tablet Oral 03/22/2021 Active metFORMIN HCl ER 500 MG Tablet Extended Release 24 Hour Oral 03/22/2021 Active Potassium Citrate ER 10 mEq Tablet Extended Release Oral *Pick strength-form from [employer] for eRX* 03/22/2021 Active Tqjixtos-Cppbedeji-GI 3.5-60037-1 Suspension Otic 03/22/2021 Activ e Clotrimazole-Betamethasone 1-0.05 % Cream External 03/22/2021 Active Azithromycin 250 MG Tablet Oral 03/22/2021 Active Sulfamethoxazole-Trimethop rim 800-160 MG Tablet Oral 03/22/2021 Active Losartan Potassium 50 MG Tablet Oral 03/22/2021 Active Social History Social History Additional Details Category Social Info Options Details Migrated Social History Migrated Social History Alcohol Intake: None 01/28/2021,Tobacco Years: Former smoker 01/28/2021 Plan Of Treatment No Information Insurance Providers Payer Name Payer Address Payer Phone Subscriber Number Group Number Insured Name Patient Relationship to Insured Coverage Start Date Coverage End Date [employer] [address] [place] [address] [id number] MATIAS FLORES Self - patient is the insured Medical (General) History Surgical History Surgery Date(Month/Year) Hysterectomy ([id number]) 07/10/2017
[2025-02-25 10:41] LABS: Estimated Glomerular Filt Rate > 60
== END 2025-02-25 09:47 | disposition home or self-care (01) ==
PROVIDERS: PCP Family Medicine; Visit Provider Nurse Practitioner Family
DX: R93.7 Abnormal findings on diagnostic imaging of other parts of musculoskeletal system (principal); R91.8 Other nonspecific abnormal finding of lung field; M43.16 Spondylolisthesis, lumbar region
CPT/HCPCS: 71250; 72132; Q9967